=== PATIENT | male | born 1940 | race Caucasian/White ===

== ENCOUNTER 2016-03-26 14:15 | Inpatient (IN) | payer OTHER ==
[~2016-03-26] VITALS: Ht 177.8 cm; Wt 79.4 kg
[~2016-03-26 14:15] MED LIST: ALBUTEROL SULFAT3 M1 NEB; ASPIRIN CHILDRE81 MG PO; AZITHROMYCIN250 MG PO; CARDIZEM120 MG; FOLIC ACID 1 MG PO; IMODIUM 2 MG. CA2 MG PO; KLOR-CON 10MEQ10 MEQ; LASIX20 MG; LOPRESSOR 25MG25 MG PO; MAGNESIUM OXID400 MG PO; MAGNESIUM SULFATE; MASON NATURAL1000 IU PO; MULTIVITAMIN1 TAB PO; PREDNISONE 10MG10 M1 PO; PREDNISONE10 MG; PREDNISONE10 MG PO; PRINIVIL10 MG; PROVENTIL0.09 MG/A1 INH; SPIRIVA 18 MCG18 MCG INH; SYMBICORT 160/41 PUF INH; VITAMIN B1100 MG PO; XARELTO10 MG; ZOLOFT 100 MG100 MG PO
--- NOTE | 2016-03-26 14:26 | NUR ---
PT TO ED FOR WORSENING SOB OVER PAST 2 DAYS, DENIES FEVER, NVD, CP. REPORTS CHRONIC COUGH R/T COPD, NON PRODUCTIVE.
--- NOTE | 2016-03-26 14:26 | NUR ---
ROCHELLE TO BEDSIDE TO EVAL
--- NOTE | 2016-03-26 14:30 | ED DYSPNEA/ASTHMA COMPLAINT ---
History of Present Illness General Chief Complaint: General Adult Stated Complaint: SOB/GENERAL WEAKNESS Source: patient Exam Limitations: no limitations Vital Signs & Intake/Output Vital Signs & Intake/Output ED Intake and Output 04/01 0000 03/31 1200 Intake Total 840 120 Output Total 900 Balance 840 -780 Intake, Oral 840 120 Output, Urine 900 Allergies Coded Allergies: NO KNOWN ALLERGIES (04/07/15) Triage Note: PT TO ED FOR WORSENING SOB OVER PAST 2 DAYS, DENIES FEVER, NVD, CP. REPORTS CHRONIC COUGH R/T COPD, NON PRODUCTIVE. Triage Nurses Notes Reviewed? yes Onset: Gradual Duration: day(s): (2) Timing: recent history Severity: moderate Activities at Onset: none Prior Episodes/Possible Cause: occasional episodes Modifying Factors: Improves With: immobilization. HPI: Patient is a 75-year-old male with history of COPD presenting to the emergency Department chief complaint of increased shortness of breath 2 days. Symptoms worsen with exertion but he reports that he should've breath. Stationery as well. Denies any fevers or chills. No productive cough. Denies any nausea or vomiting or chest pain. No palpitations. Has been using his at-home inhalers as well as no relief. (DELVIN MYRICK,AMARILYS) Reconcile Medications Albuterol Sulfate (Proair Hfa) 90 MCG HFA.AER.AD 2 PUF INH Q4-6 PRN PRN COPD (Reported) Albuterol Sulfate 2.5 MG/3 ML (0.083 %) VIAL.NEB 1 Vial INH/KARTHIKEYAN PRN COPD ( Reported) Aspirin (Ecotrin*) 81 MG TABLET.DR 1 TAB PO DAILY HEART/BLOOD (Reported) Folic Acid 1 MG TABLET 1 MG PO DAILY supplement Multivitamin (One Daily Multivitamin) 1 EACH TABLET 1 TAB PO DAILY supplement Thiamine HCl (Vitamin B-1) 100 MG TABLET 100 MG PO DAILY supplement Tiotropium [place] (Spiriva) 18 MCG CAP.W.DEV 1 CAP INH DAILY COPD (Reported) (TERI AU,PILAR Zapata) Past History Travel History Traveled to [place] past 21 day No Medical History Any Pertinent Medical History? see below for history Neurological: NONE EENT: NONE Cardiovascular: AFIB, hypertension Respiratory: COPD, obstructive sleep apnea, TUBERCULOSIS WITH LUNG RESECTION Gastrointestinal: NONE Hepatic: NONE Renal: NONE Musculoskeletal: fracture, right hip fracture 10 years ago Psychiatric: anxiety, depression Endocrine: NONE Blood Disorders: NONE Cancer(s): NONE SURFACE GRINDER/Reproductive: NONE History of MRSA: No History of VRE: No History of CDIFF: No Pneumonia Vaccine: 12/27/14 Influenza Vaccine: 11/17/14 Surgical History Surgical History: RIGHT HIP, LOBECTOMY Psychosocial History Who do you live with Patient/Self Services at Home Oxygen What is your primary language Frisian Tobacco Use: Never used ETOH Use: occasional use Illicit Drug Use: denies illicit drug use Family History Family History, If Any: Relation not specified for: FH: myocardial infarction Hx Contributory? No (AMARILYS PERKINS) Review of Systems Review of Systems Constitutional: Reports: no symptoms. Comments Review of systems: See HPI, All other systems negative. Constitutional, no chills fever or weight loss HEENT: No visual changes no sore throat no congestion Cardiovascular: No chest pain ,palpitation , orthopnea or ankle swelling Skin, no jaundice no rashes Respiratory: No sputum or hemoptysis GI: No nausea no vomiting : No dysuria No hematuria Muscle skeletal: no back pain, no neck pain, Neurologic: No numbness no confusion Psych: No stress anxiety or depression,. Heme/endocrine: No bruising no bleeding no polyuria or polydipsia Immunology: No splenectomy or history of AIDS (AMARILYS PERKINS) Physical Exam Physical Exam General Appearance: well developed/nourished, alert, awake, mild distress Respiratory: wheezing Comments: Well-developed well-nourished person in mild resp distress HEENT: Pupils equally round and reactive to light and accommodation. Nose is atraumatic. External auditory canal and Tympanic membranes clear. Pharynx normal. No swelling or edema. Neck: Supple, no lymphadenopathy, normal range of motion without pain or tenderness Back: Nontender Cardiovascular: Regular rate and rhythms no murmurs rubs or gallops, normal JVP Respiratory: Chest nontender. No respiratory distress.breath sounds diminished to auscultation bilaterally Abdomen: Soft, nontender nondistended, no appreciable organomegaly. Normal bowel sounds. No ascites Extremity: No edema, no calf tenderness to palpation, normal and equal pulses. Neuro: Alert oriented x3 Skin: No appreciable rash on exposed skin, skin is warm and dry. Psych: Mood and affect is normal, memory and judgment is normal. Core Measures ACS in differential dx? Yes Severe Sepsis Present: No Septic Shock Present: No (DELVIN MYRICK,AMARILYS) Progress Differential Diagnosis: asthma, AMI, bronchitis, costochondritis, CHF, COPD, pulmonary embolism, pneumonia, pneumonia, bronchitis, COPD exacerbation, ACS, dehydration, viral syndrome Plan of Care: Orders Procedure Date/time Status HEPATIC FUNCTION PANEL 03/29 06 Active CBC WITHOUT DIFFERENTIAL 03/29 06 Active BASIC ELECTROLYTES PLUS BUN&CR 03/29 06 Active HEPATIC FUNCTION PANEL 03/28 075 Complete CBC WITHOUT DIFFERENTIAL 03/28 075 Complete BASIC ELECTROLYTES PLUS BUN&CR 03/28 075 Complete PHYSICIAN CONSULT 03/28 0743 Active Nursing Misc 03/28 UNK Active OXYGEN SETUP CHG 03/27 UNK Complete OXYGEN 03/27 UNK Complete OXYGEN TRANSPORT 03/27 UNK Complete Current Medications Sig/Ade Start time Last Medication Dose Stop Time Status Admin Prednisone 40 MG DAILY 03/29 1000 AC Heparin Sodium 5,000 UNIT Q8 03/27 1400 AC (Porcine) Albuterol Sulfate 3 ML Q4-6 PRN PRN 03/26 2300 AC (Proventil) Laboratory Tests 03/28/16 0915: Anion Gap 17 H, Estimated GFR 59 L, BUN/Creatinine Ratio 27.5 H, Total Bilirubin 0.9, Direct Bilirubin 0.5 H, AST 34, ALT 46, Alkaline Phosphatase 100 , Total Protein 7.9, Albumin 4.3, CBC w Diff NO MAN DIFF REQ, RBC 4.13 L, MCV 98.2 H, MCH 32.8 H, RDW 15.6 H, MPV 7.6, Gran % 89.1 H, Lymphocytes % 6.6 L , Monocytes % 4.2, Eosinophils % 0.1, Basophils % 0 L, Absolute Granulocytes 14.7 H, Absolute Lymphocytes 1.1 L, Absolute Monocytes 0.7 H, Absolute Eosinophils 0, Absolute Basophils 0, PUBS MCHC 33.4 Diagnostic Imaging: Viewed by Me: Radiology Read. Discussed w/RAD: Radiology Read. Radiology Impression: PATIENT: YUVAL MANSFIELD PRESENT AGE: 75 PATIENT ACCOUNT NO: [id number] : 42 LOCATION: [facility] ORDERING PHYSICIAN: AMARILYS MYRICK SERVICE DATE: 03/26/16 EXAM TYPE: RAD - XRY-CHEST XRAY, PA AND LATERAL EXAMINATION: XR CHEST CLINICAL INFORMATION: Shortness of breath. COMPARISON: Chest x-ray 04/07/2015. CTA of the chest 03/02/2015. Chest x-ray 05/18/2014 TECHNIQUE: 2 views of the chest were obtained. FINDINGS: Stable chronic changes. Pleural thickening and pleural calcifications at the left lateral lower hemithorax with blunting of the left costophrenic angle and volume loss left hemithorax. Surgical clips over the left superior hilum. There is parenchymal scarring at the right lung apex. Pleural calcifications in the right lateral mid hemithorax. No acute abnormality. No pulmonary vascular congestion. No infiltrate or pleural effusion. The heart size is normal. The cardiac and mediastinal contours are normal. IMPRESSION: No acute abnormality of the chest. Stable chronic changes., PATIENT: YUVAL MANSFIELD PRESENT AGE: 75 PATIENT ACCOUNT NO: [id number] : LOCATION: [facility] ORDERING PHYSICIAN: AMARILYS MYRICK SERVICE DATE: 03/26/16 EXAM TYPE: US - US-LIMITED ABDOMEN EXAMINATION: US ABDOMEN LIMITED CLINICAL INFORMATION: Elevated bilirubin. Elevated liver function tests. COMPARISON: CTA of the chest 03/02/2015 TECHNIQUE: Real-time imaging of the right upper quadrant abdominal viscera. Color Doppler exam utilized. FINDINGS: PANCREAS: Not seen well due to bowel gas. LIVER: The liver is partially obscured in the left lobe due to bowel gas. No liver lesion seen in the visualized portions of liver. No intrahepatic bile duct dilatation. Right lobe liver measures 17.7 cm superior inferior. GALLBLADDER: There is a gallstone in the gallbladder measuring just over a centimeter in size in the neck of the gallbladder. No edema of the gallbladder. No gallbladder wall thickening or pericholecystic fluid. Negative ultrasound Hutchins's sign. COMMON BILE DUCT: Extrahepatic bile duct is dilated to a diameter of 1.7 cm. No stone identified within the duct. RIGHT KIDNEY: Normal. No hydronephrosis. No renal calculi or focal parenchymal lesions. The kidney measures 10.7 cm in maximum dimension. FREE FLUID: None. IMPRESSION: 1. Cholelithiasis. No acute change of the gallbladder wall. 2. Dilated CBD to a diameter of 1.7 cm without calcified stone within the visualized portions of the duct. MRCP could be helpful for further assessment., PATIENT: YUVAL MANSFIELD PRESENT AGE: 75 PATIENT ACCOUNT NO: [id number] : 42 LOCATION: [facility] ORDERING PHYSICIAN: AMARILYS MYRICK SERVICE DATE: 03/26/16 EXAM TYPE: CAT - CTA CHEST- PULMONARY EMBOLISM EXAMINATION: CT ANGIOGRAM OF THE CHEST WITH AND WITHOUT CONTRAST (CT PULMONARY ANGIOGRAM FOR PE) CLINICAL INFORMATION: Shortness of breath. Tachycardia. COMPARISON: CTA chest 03/02/2015. TECHNIQUE: Prior to contrast administration, noncontrast localization images were obtained. Subsequently, multidetector volumetric imaging was performed from the thoracic inlet to below the diaphragms following the administration 101 mL Optiray 350 intravenous contrast. No contrast reaction reported. Sagittal, coronal, and MIP oblique sagittal reformatted images were obtained on the CT workstation, uploaded to PACS, and reviewed. Total exam dose-length product 536 mGy-cm FINDINGS: QUALITY OF STUDY/CONTRAST BOLUS: Adequate contrast opacification of the pulmonary arterial vasculature. PULMONARY ARTERIES: No evidence of pulmonary embolism to the level of the subsegmental pulmonary arteries. No large central pulmonary emboli. The main pulmonary artery is normal in caliber. Normal caliber of the thoracic aorta THORACIC AORTA: Normal caliber of the thoracic aorta, without aneurysmal dilatation. No centrally displaced intraluminal flaps to suggest aortic dissection. LUNG: Evaluation of the lung parenchyma is again notable for architectural distortion within the right upper lobe with associated scarring and fibrosis and traction bronchiectasis. There is also unchanged architectural distortion within the left upper lobe with associated elevation of the left fissure. There are postsurgical changes within the left upper lobe, related to prior surgery. No new airspace consolidation is identified. There are mild bilateral centrilobular emphysematous changes. Redemonstrated is a 5 mm pulmonary nodule within the lingula, not significantly changed in size relative to the prior examination. No new or enlarging pulmonary nodules are identified. Incidental note is made of a calcified granuloma within the right lower lobe ( series 3, image 29). The central airways are patent, without endobronchial obstructing lesions. PLEURA: No pleural effusions or pneumothoraces. 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 MEDIASTINUM: Normal heart size, without significant pericardial effusion. Normal three-vessel branching of the aortic arch. Scattered atherosclerosis of the thoracic aorta. Scattered coronary artery calcifications. No significant mediastinal or hilar adenopathy. Previously noted subcentimeter subcarinal lymph nodes do not appear significantly changed. No evidence of septal bowing or right heart strain. CHEST WALL/AXILLA: Evaluation of the chest wall is again notable for subcutaneous nodules along the right and left anterior chest price, visualized measuring up to 1.6 cm along the right anterior chest wall. The subcutaneous nodules do not appear significantly changed relative to the most recent exam. There is no significant axillary adenopathy. OSSEOUS STRUCTURES: No acute osseous abnormality. Moderate multilevel degenerative changes of the imaged thoracic spine. No acute thoracic vertebral compression deformities. No subluxation. UPPER ABDOMEN: No acute findings within the abdomen. Redemonstrated is cholelithiasis. No visible secondary signs of acute cholecystitis. There is a stable nodule within the right adrenal gland measuring approximately 1.4 cm 5 Hounsfield units. This is favored to represent a small right adrenal gland adenoma. No reflux of contrast into the hepatic veins to suggest elevated right heart pressures. IMPRESSION: 1. Adequate contrast opacification of the pulmonary arterial vasculature, without evidence of pulmonary embolism. 2. Unchanged architectural distortion within the bilateral upper lobes, notably within the right lung apex. 3. 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 4. Stable 5 mm pulmonary nodule within the lingula. This finding is entirely nonspecific. Recommend follow-up chest CT in one year to establish two-year stability, per Fleischner Society guidelines, as detailed below. Various management parameters for solitary pulmonary nodules are in the literature. According to the Fleischner Society, recommendations for pulmonary nodules are as follows: Nodule size > 4-6 mm in LOW RISK PATIENTS: Follow up CT at 12 months; if unchanged, no further follow up. Nodule size > 4-6 mm in HIGH RISK PATIENTS: Initial follow up CT at 6-12 months, then at 18-24 months if no change. VTE: Negative. DICTATED BY: RIO GOODWIN MD DATE/TIME DICTATED:1841 SPLITTER MACHINE:TE DATE/TIME TRANSCRIBED:03/26/161841 CONFIDENTIAL, DO NOT COPY WITHOUT APPROPRIATE AUTHORIZATION. <Electronically signed in Other Vendor System> SIGNED BY: RIO GOODWIN MD 03/26/16 1900 Initial ED EKG: sinus tachycardia at 102 bpm Comments: 03/26/2016 6:45:12 PM on reevaluation patient still denying any abdominal pain but does have tenderness to palpation in the right upper quadrant with mild guarding. Page put out to gastroenterology. Patient will be seen by Dr. wallace in the emergency department for elevated liver function tests and bilirubin. questionable dilation of the common bile duct. Patient will be admitted for COPD exacerbation. Ambulatory with oxygen patient still gets to Neck and his heart rate goes up to 110. Patient will need serial DuoNeb treatments, IV steroids. Pulmonology consultation. Unsafe for discharge at this time. (AMARILYS PERKINS) Departure Departure Time of Disposition: 1938 Disposition: STILL A PATIENT Condition: Stable Clinical Impression Primary Impression: COPD exacerbation Referrals: DENVER AU,MARCELL Maynard Departure Forms: Customer Survey General Discharge Information Admission Note Spoke With: LM AU,ELISHA Documentation of Exam: Documentation of any treatments & extenuating circumstances including Concerns Regarding Discharge (functional status, medication knowledge or non-compliance, living conditions, etc.) that warrant an admission rather than observation: Patient requiring serial DuoNeb treatments, requiring more oxygen than baseline, IV steroids, pulmonology consultation. Discharged at this time and be medically harmful. Patient will obtain GI consultation while admitted, may require MRCP . (AMARILYS PERKINS) Departure Prescriptions: Current Visit Scripts Folic Acid 1 MG PO DAILY 30 Days Multivitamin (One Daily Multivitamin) 1 TAB PO DAILY 30 Days Thiamine HCl (Vitamin B-1) 100 MG PO DAILY 30 Days PA/STEEL CUTTER Co-Sign Statement Statement: ED Attending supervision documentation- [X] I saw and evaluated the patient. I have also reviewed all the pertinent lab results and diagnostic results. I agree with the findings and the plan of care as documented in the PA's/STEEL CUTTER's documentation. [X] I have reviewed the ED Record and agree with the PA's/STEEL CUTTER's documentation. [] Additions or exceptions (if any) to the PAs/STEEL CUTTER's note and plan are summarized below: [] (TERI AU,PILAR Zapata) Critical Care Note Critical Care Note Critical Care Time: non-applicable (AMARILYS PERKINS)
--- NOTE | 2016-03-26 15:14 | RADIOLOGY REPORT ---
EXAMINATION: XR CHEST CLINICAL INFORMATION: Shortness of breath. COMPARISON: Chest x-ray 04/07/2015. CTA of the chest 03/02/2015. Chest x-ray 05/18/2014 TECHNIQUE: 2 views of the chest were obtained. FINDINGS: Stable chronic changes. Pleural thickening and pleural calcifications at the left lateral lower hemithorax with blunting of the left costophrenic angle and volume loss left hemithorax. Surgical clips over the left superior hilum. There is parenchymal scarring at the right lung apex. Pleural calcifications in the right lateral mid hemithorax. No acute abnormality. No pulmonary vascular congestion. No infiltrate or pleural effusion. The heart size is normal. The cardiac and mediastinal contours are normal. IMPRESSION: No acute abnormality of the chest. Stable chronic changes.
--- NOTE | 2016-03-26 15:28 | NUR ---
CATERINA DRAWN AND SENT TO LAB
[2016-03-26] MEDS ORDERED: ASPIRIN EC81 M1 PO (15:35)
--- NOTE | 2016-03-26 15:35 | NUR ---
IV EST. PT MEDICATED WITH 125MG IV SOLUMEDROL PER ORDER AT THIS TIME
[2016-03-26] MEDS ORDERED: SPIRIVA18 MCG INH (15:36)
[2016-03-26] MEDS ORDERED: PROAIR HFA8.5 GM INH (15:36)
[2016-03-26 15:37] LABS: ABSOLUTE BASOPHIL COUNT 0.1 /CUMM (0.0-0.2); ABSOLUTE EOSINOPHIL COUNT 0.1 /CUMM (0.0-0.7); ABSOLUTE GRANULOCYTE CT 8.8 /CUMM (1.4-6.5); ABSOLUTE LYMPH COUNT 1.3 /CUMM (1.2-3.4); ABSOLUTE MONOCYTE COUNT 1.4 /CUMM (0.10-0.60); BASOPHIL % 0.8 % (0.0-2.0); EOSINOPHIL % 0.4 % (0-5); GRANULOCYTE % 76.1 % (42.2-75.2); HEMATOCRIT 41.1 % (42-52); MEAN CORPUSCULAR HGB 33.2 PG (27.0-31.0); MEAN CORPUSCULAR HGB CONC 33.9 G/DL (33.0-37.0); MEAN CORPUSCULAR VOLUME 97.8 FL (80.0-94.0); MEAN PLATELET VOLUME 6.5 FL (7.4-10.4); PLATELET COUNT 400 /CUMM (130-400); RBC DISTRIBUTION WIDTH 15.4 % (11.5-14.5); WHITE BLOOD CELL COUNT 11.6 /CUMM (4.8-10.8)
[2016-03-26] MEDS ORDERED: ALBUTEROL2.5 MG/3 M INH/SOL (15:37)
[2016-03-26] MEDS ORDERED: BP PO (15:40)
--- NOTE | 2016-03-26 17:09 | NUR ---
IV MAGENSIUM 1 GRAM INFUSING PER ORDER AT THIS TIME.
--- NOTE | 2016-03-26 17:37 | NUR ---
PT TO US AT THIS TIME VIA STRETCHER
--- NOTE | 2016-03-26 18:13 | NUR ---
PT BACK ROM US
--- NOTE | 2016-03-26 18:26 | ULTRASOUND REPORT ---
EXAMINATION: US ABDOMEN LIMITED CLINICAL INFORMATION: Elevated bilirubin. Elevated liver function tests. COMPARISON: CTA of the chest 03/02/2015 TECHNIQUE: Real-time imaging of the right upper quadrant abdominal viscera. Color Doppler exam utilized. FINDINGS: PANCREAS: Not seen well due to bowel gas. LIVER: The liver is partially obscured in the left lobe due to bowel gas. No liver lesion seen in the visualized portions of liver. No intrahepatic bile duct dilatation. Right lobe liver measures 17.7 cm superior inferior. GALLBLADDER: There is a gallstone in the gallbladder measuring just over a centimeter in size in the neck of the gallbladder. No edema of the gallbladder. No gallbladder wall thickening or pericholecystic fluid. Negative ultrasound Hutchins's sign. COMMON BILE DUCT: Extrahepatic bile duct is dilated to a diameter of 1.7 cm. No stone identified within the duct. RIGHT KIDNEY: Normal. No hydronephrosis. No renal calculi or focal parenchymal lesions. The kidney measures 10.7 cm in maximum dimension. FREE FLUID: None. IMPRESSION: 1. Cholelithiasis. No acute change of the gallbladder wall. 2. Dilated CBD to a diameter of 1.7 cm without calcified stone within the visualized portions of the duct. MRCP could be helpful for further assessment.
--- NOTE | 2016-03-26 18:28 | NUR ---
PT TO CT SCAN AT THIS TIME VIA STRETCHER
--- NOTE | 2016-03-26 18:59 | NUR ---
RESP PAGED FOR TREATMENT AT THIS TIME.
--- NOTE | 2016-03-26 19:00 | CT SCAN REPORT ---
EXAMINATION: CT ANGIOGRAM OF THE CHEST WITH AND WITHOUT CONTRAST (CT PULMONARY ANGIOGRAM FOR PE) CLINICAL INFORMATION: Shortness of breath. Tachycardia. COMPARISON: CTA chest 03/02/2015. TECHNIQUE: Prior to contrast administration, noncontrast localization images were obtained. Subsequently, multidetector volumetric imaging was performed from the thoracic inlet to below the diaphragms following the administration 101 mL Optiray 350 intravenous contrast. No contrast reaction reported. Sagittal, coronal, and MIP oblique sagittal reformatted images were obtained on the CT workstation, uploaded to PACS, and reviewed. Total exam dose-length product 536 mGy-cm FINDINGS: QUALITY OF STUDY/CONTRAST BOLUS: Adequate contrast opacification of the pulmonary arterial vasculature. PULMONARY ARTERIES: No evidence of pulmonary embolism to the level of the subsegmental pulmonary arteries. No large central pulmonary emboli. The main pulmonary artery is normal in caliber. Normal caliber of the thoracic aorta THORACIC AORTA: Normal caliber of the thoracic aorta, without aneurysmal dilatation. No centrally displaced intraluminal flaps to suggest aortic dissection. LUNG: Evaluation of the lung parenchyma is again notable for architectural distortion within the right upper lobe with associated scarring and fibrosis and traction bronchiectasis. There is also unchanged architectural distortion within the left upper lobe with associated elevation of the left fissure. There are postsurgical changes within the left upper lobe, related to prior surgery. No new airspace consolidation is identified. There are mild bilateral centrilobular emphysematous changes. Redemonstrated is a 5 mm pulmonary nodule within the lingula, not significantly changed in size relative to the prior examination. No new or enlarging pulmonary nodules are identified. Incidental note is made of a calcified granuloma within the right lower lobe (series 3, image 29). The central airways are patent, without endobronchial obstructing lesions. PLEURA: No pleural effusions or pneumothoraces. 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 MEDIASTINUM: Normal heart size, without significant pericardial effusion. Normal three-vessel branching of the aortic arch. Scattered atherosclerosis of the thoracic aorta. Scattered coronary artery calcifications. No significant mediastinal or hilar adenopathy. Previously noted subcentimeter subcarinal lymph nodes do not appear significantly changed. No evidence of septal bowing or right heart strain. CHEST WALL/AXILLA: Evaluation of the chest wall is again notable for subcutaneous nodules along the right and left anterior chest price, visualized measuring up to 1.6 cm along the right anterior chest wall. The subcutaneous nodules do not appear significantly changed relative to the most recent exam. There is no significant axillary adenopathy. OSSEOUS STRUCTURES: No acute osseous abnormality. Moderate multilevel degenerative changes of the imaged thoracic spine. No acute thoracic vertebral compression deformities. No subluxation. UPPER ABDOMEN: No acute findings within the abdomen. Redemonstrated is cholelithiasis. No visible secondary signs of acute cholecystitis. There is a stable nodule within the right adrenal gland measuring approximately 1.4 cm 5 Hounsfield units. This is favored to represent a small right adrenal gland adenoma. No reflux of contrast into the hepatic veins to suggest elevated right heart pressures. IMPRESSION: 1. Adequate contrast opacification of the pulmonary arterial vasculature, without evidence of pulmonary embolism. 2. Unchanged architectural distortion within the bilateral upper lobes, notably within the right lung apex. 3. 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 4. Stable 5 mm pulmonary nodule within the lingula. This finding is entirely nonspecific. Recommend follow-up chest CT in one year to establish two-year stability, per Fleischner Society guidelines, as detailed below. Various management parameters for solitary pulmonary nodules are in the literature. According to the Fleischner Society, recommendations for pulmonary nodules are as follows: Nodule size > 4-6 mm in LOW RISK PATIENTS: Follow up CT at 12 months; if unchanged, no further follow up. Nodule size > 4-6 mm in HIGH RISK PATIENTS: Initial follow up CT at 6-12 months, then at 18-24 months if no change. VTE: Negative.
--- NOTE | 2016-03-26 19:07 | NUR ---
RESPIRATORY AT BEDSIDE
--- NOTE | 2016-03-26 19:24 | NUR ---
first set of bc drawn and sent to lab
--- NOTE | 2016-03-26 19:40 | NUR ---
PT AMBULATED BY THIS RN AND BRENT VELÁZQUEZ. PT O2 SAT DOWN TO 89% AND HR INCREASED TO 110. RAMEZ HARGROVE MADE AWARE
--- NOTE | 2016-03-26 19:46 | NUR ---
PT MEDICATED WITH UNASYN INFUSING AT 200MLS/HR PER EMAR
--- NOTE | 2016-03-26 19:47 | Cons- Gastroenterology ---
General Information and HPI Consulting Request Date of Consult: 03/26/16 Requested By: LM AU,ELISHA Reason for Consult: Called by the ER on behalf of the hospitalist service about 1 hour ago, to assess incidentally found cholelithiasis (previously present) and dilated CBD noted on imaging studies obtained purely for a flare of COPD. Source of Information: patient, old records Exam Limitations: poor historian, majority of records at [facility] & [facility] History of Present Illness: 75 y/o male, poor historian, with majority of records at [facility]. He is followed for primary care by Jai Cortez APRN, at the [facility]. The patient is an ex-30-pk yr cigarette smoker, stopping in 1989, with COPD (has home O2, but does not use it regularly), remotely on Prednisone, with past history of leukocytosis related to this. He also admits to moderate EtOH, approximately 1 pint vodka/ week. He claims he has not had alcohol for over 1 month. He has a history of PAF (not on A/C therapy), HTN/non-DM, with RUL resection for TB at [facility] > 10 years ago, and ORIF right hip fracture at the [facility] > 10 years ago. He also has Vit D deficiency, anxiety & depression, and was last admitted to [facility] 04/07/15 - 04/12/15 for a flare of COPD, treated with IV Solu-Medrol, Symbicort, Spiriva, and Albuterol, with oxygen as needed. 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 The patient presented to the [place] [facility] 03/26/2016 at 2:15 PM, complaining of shortness of breath, wheezing, and cough productive of greenish sputum, without any pleuritic pain or chest pain. He claimed he was brought here because "there were no beds at the [facility]." There was no hemoptysis. He denied any fevers, chills, or symptoms of UTI. He felt weak and rundown. He was borderline tachycardic with borderline HTN and afebrile with O2 sat 2L nc- 100% upon presentation. Patient was treated with Albuterol, Atrovent, Solu-Medrol 125 mg IV, Mg, O2 & Unasyn 3g IVPB, as per the ER. Although the patient is not aware of this, he does have a history of cholelithiasis, incidentally found on 2015: CTA of chest. The patient has intermittent elevated LFTs, which date back several years. He denies any GI symptoms whatsoever, and currently denies any abdominal pain, nausea, vomiting, hematemesis, odynophagia, dysphagia, early satiety, melena, diarrhea, constipation, obstipation, tenesmus, or rectal bleeding. He denies any jaundice, dark urine, light stools, pruritus, weight loss, change in appetite, or confusion. He denies any history of hepatitis, blood transfusions, IVDA, illicit drugs, tattoos, body piercings, or needle sticks, although he has been on benzodiazepines in the past. He claims he had C. difficile treated x 2, last about 5 years ago. He claims a colonoscopy at the [facility] 6 years ago was "normal" He denies any history of DTs, seizures, or withdrawal. He denies any new outpatient medications. He cannot give a complete list of his medications, but claims he is on "a blood pressure pill, Albuterol, Spiriva, & ECASA 81 mg daily." He is not on any NSAIDs or significant amounts of Tylenol. There is no family history of GI malignancy, GI disease, or inherited liver disease. *Liver function tests were mildly abnormal on admission (which is chronic), and imaging studies obtained for his pulmonary symptoms and his mildly chronically elevated asymptomatic LFTs, incidentally showed cholelithiasis with dilated CBD, prompting the GI consult. He had borderline leukocytosis on admission, which is actually stable compared to his previous labs. He tolerated solid food uneventfully in the ER. 03/26/2016: Admission labs- WBC 11.6 (76% gran/9 gran Ab), H/H 13.9/41.1, MCV 97.8, RDW 15.4, PLT 400, glucose 104, BUN/Cr 12/0.8, GFR > 60, Na 140, K 3.7, HCO3 25, AG 14, *Mg 1.1, Ca 9.3, albumin 4.1, globulin 2.6, TBil 2.0 (initially without fracs), DBil 0.9, alk phos 167, AST 71, ALT 64, troponin < .01, elevated D-dimer 623. 03/26/2016: EKG- ST @ 102, nl axis, borderline prolonged QT interval, unifocal PVCs, no acute ischemic changes. 03/26/2016: XRY-CHEST XRAY, PA AND LATERAL- No acute abnormality of the chest. Stable chronic changes. 03/26/2016: US ABDOMEN LIMITED (RUQ)- 1. Cholelithiasis with 1 cm stone in GB neck. No acute change of the gallbladder wall. Negative ultrasonic Hutchins sign. 2. Dilated CBD to a diameter of 1.7 cm without calcified stone within the visualized portions of the duct. Normal IHD. MRCP could be helpful for further assessment. 3. No liver lesion. No elodia-hepatic ascites. 03/26/2016: CT ANGIOGRAM OF THE CHEST WITH AND WITHOUT CONTRAST (CT PULMONARY ANGIOGRAM FOR PE)- 1. Adequate contrast opacification of the pulmonary arterial vasculature, without evidence of pulmonary embolism. 2. Unchanged architectural distortion within the bilateral upper lobes, notably within the right lung apex. 3. 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 4. Stable 5 mm pulmonary nodule within the lingula. This finding is entirely nonspecific. Recommend follow-up chest CT in one year to establish two-year stability, per Fleischner Society guidelines, as detailed below. Allergies/Medications Allergies: Coded Allergies: NO KNOWN ALLERGIES (04/07/15) Home Med List: Albuterol Sulfate (Proair Hfa) 90 MCG HFA.AER.AD 2 PUF INH Q4-6 PRN PRN COPD (Reported) Albuterol Sulfate 2.5 MG/3 ML (0.083 %) VIAL.NEB 1 Vial INH/KARTHIKEYAN PRN COPD ( Reported) Aspirin (Ecotrin*) 81 MG TABLET.DR 1 TAB PO DAILY HEART/BLOOD (Reported) [BP] (Unknown Strength) (Unknown Dose) PO DAILY BP (Reported) Tiotropium [place] (Spiriva) 18 MCG CAP.W.DEV 1 CAP INH DAILY COPD (Reported) Current Medications: Current Medications Sig/Ade Start time Last Medication Dose Route Stop Time Status Admin Albuterol Sulfate 3 ML ONCE ONE 03/26 1845 DC 03/26 INH 03/26 1846 1904 Albuterol Sulfate 3 ML ONCE ONE 03/26 1430 DC 03/26 INH 03/26 1431 1500 Ampicillin Sodium/ 0 .STK-MED ONE 03/26 1944 DC Sulbactam Sodium .ROUTE Ampicillin Sodium/ 3,000 MG ONCE ONE 03/26 1900 DC / Sulbactam Sodium IV 03/26 1929 1945 Sodium Chloride 100 ML Ipratropium [place] 2.5 ML ONCE ONE 03/26 1430 DC 02/ INH 03/26 1431 1500 Magnesium Sulfate 1 GM ONCE ONE 03/26 1615 DC 03/26 Dextrose/Water 100 ML IV 03/26 2013 1709 Methylprednisolone 0 .STK-MED ONE 03/26 1507 DC .ROUTE Methylprednisolone 125 MG ONCE ONE 03/26 1430 DC / IV 03/26 1431 1529 Sodium Chloride 1,000 ML ONCE ONE 03/26 1715 AC 03/26 IV 03/26 2354 1807 Past History Travel History Traveled to [place] past 21 day No Medical History Blood Transfusion Hx: No Neurological: NONE EENT: hearing loss Cardiovascular: AFIB (PAF, currently NSR, w/o A/C tx), hypertension Respiratory: COPD, obstructive sleep apnea, TUBERCULOSIS WITH RUL LUNG RESECTION- [facility] Gastrointestinal: C.difficile x 2, last 5 yrs ago Hepatic: cholelithiasis (incidental on previous CT) Renal: NONE Musculoskeletal: fracture, right hip fracture 10 years ago- R THR @ [facility] Psychiatric: anxiety, depression, mild to mod EtOH, 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 MOTHER, , Age 93; Cause: Old age. SON, , Age 50-60. Relation not specified for: FH: myocardial infarction Psychosocial History Where Do You Live? Home Who Do You Live With? self Services at Home: Home Health Aide (? compliance), Oxygen Primary Language: Italian Smoking Status: Former Smoker ETOH Use: occasional use Illicit Drug Use: denies illicit drug use Living Will? no Power of Junior Project Coordinator/HCP? no Other Social History: since 2003. Lives alone. Ex-30-pk-yr cigarette smoker, D/C 1989. 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 No drugs or IVDA. [employer] vet [phone]. 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 Retired 2005. Had 2 sons. 1 son- 50, unknown cause. 1 son- 47, [employer]. Functional Ability ADLs Independent: dressing, eating, toileting, bathing. Ambulation: independent IADLs Independent: shopping, housework, finances, food prep, telephone, transportation , medication admin. Employment History Employment: Retired Profession/Employer: [employer], then [employer] Review of Systems Review of Systems: Full 14 point ROS otherwise non-contributory, and as above. Review of Systems Constitutional: Reports: malaise, weakness. Denies: chills, diaphoresis, fever, unexplained weight loss. EENTM: Reports: hearing changes. Denies: blurred vision, double vision, visual changes , eye pain, eye drainage, eye tearing, icterus, ear discharge, ear pain, ear redness, nasal congestion, epistaxis, nasal pain, throat pain, throat swelling, mouth pain, tooth pain. Cardiovascular: Reports: peripheral edema (mild). Denies: chest pain, edema, orthopena, palpitations, syncope. Respiratory: Reports: cough (chronic- greenish sputum), short of breath, sputum production ( greenish), wheezing. Denies: hemoptysis, orthopnea, stridor. GI: Denies: abdominal pain, bloating, constipation, diarrhea, distention, bowel incontinence, melena, nausea, bloody stool, changes in stool, vomiting, steatorrhea. Genitourinary: Denies: discharge, dysuria, frequency, hematuria, hesitation, nocturia, pain, urgency. Musculoskeletal: Reports: joint pain (DJD, ORIF R hip). Denies: back pain, gout, joint swelling, muscle pain, muscle stiffness, neck pain. Skin: Denies: cysts, change in skin color, change in hair/nails, dryness, erythema, jaundice, lesions, lymphangitis, lumps, moles, rash. Neurological/Psychological: Reports: anxiety, depressed, emotional problems, weakness. Denies: ataxia, cognitive dysfunction, confusion, dementia, headache, numbness, paresthesia, pre -existing deficit, petit mal seizures, tingling, tremors, tonic-clonic seizures, unable to move lower ext, unable to move upper ext. Hematologic/Endocrine: Denies: bruising, bleeding, polyuria, polydipsia. Immunologic/Allergic: Denies: splenectomy, HIV/AIDS, lymphadenopathy. All Other Systems: Reviewed and Negative Exam & Diagnostic Data Vital Signs and I&O Vital Signs Date Time Temp Pulse Resp B/P Pulse O2 O2 Flow FiO2 Ox Delivery Rate 03/26 1957 98.1 105 18 173/97 98 Room Air 03/26 1908 98 Nasal 2.0L Cannula 03/26 1710 101 20 168/97 96 Room Air 03/26 1546 102 20 155/98 98 Nasal 2.0L Cannula 03/26 1530 96 Nasal 2.0L Cannula 03/26 1510 96 Nasal 2.0L Cannula 03/26 1426 98.6 100 18 144/78 100 Nasal 2.0L Cannula Intake & Output 03/26 1600 03/26 0400 03/25 1600 03/25 0400 03/24 1600 03/24 0400 Intake Total Output Total Balance Patient 160 lb Weight Physical Exam: Well-developed, chronically ill-appearing male, in no apparent distress. Sclera anicteric. Conjunctiva pink. Oropharynx clear. Poor dentition. No oral thrush. No aphthous ulcers. There is no adenopathy, thyromegaly, or JVD. No peripheral stigmata of inflammatory bowel disease or chronic liver disease on exam. No spiders on the anterior chest wall. No gynecomastia. No CVA tenderness. Lungs: decreased breath sounds at the upper lobes B/L, R > L, with scattered wheezing. Prolonged expiratory phase. No rales or rhonchi. No definite egophony. Heart exam: regular rate rhythm, S1 and S2, with soft I/ systolic murmur & occasional ectopic beat. Old scar right anterior chest wall & mid-back. Abdominal exam: normal bowel sounds, soft belly, mildly distended, nontender, without guarding or rebound. No mass. No definite organomegaly. Liver approximately 15 cm by percussion. No palpable spleen tip. Negative Hutchins sign. No fluid shift. No pulsatile mass. No epigastric bruit. Digital rectal exam: deferred by patient. Extremities: mild cyanosis, no clubbing, trace edema LE B/ L. No palpable cords. No rash. No palmar erythema. No Dupuytren's contractures. Distal pulses 1+ bilaterally. DTRs 2+ bilaterally. Alert and oriented x 3. No tremor. No asterixis. Results Pertinent Lab Results: Laboratory Tests 03/26 1527 Chemistry Sodium (137 - 145 mmol/L) 140 Potassium (3.5 - 5.1 mmol/L) 3.7 Chloride (98 - 107 mmol/L) 102 Carbon Dioxide (22 - 30 mmol/L) 25 Anion Gap (5 - 16) 14 BUN (9 - 20 mg/dL) 12 Creatinine (0.7 - 1.2 mg/dL) 0.8 Estimated GFR (>60 ml/min) > 60 BUN/Creatinine Ratio (7 - 25 %) 15.0 Glucose (65 - 99 mg/dL) 104 H Calcium (8.4 - 10.2 mg/dL) 9.3 Magnesium (1.6 - 2.3 mg/dL) 1.1 L Total Bilirubin (0.2 - 1.3 mg/dL) 2.0 H Direct Bilirubin (< 0.4 mg/dL) 0.9 H AST (17 - 59 U/L) 71 H ALT (21 - 72 U/L) 64 Alkaline Phosphatase (< 127 U/L) 167 H Troponin I (<0.11 ng/ml) < 0.01 Total Protein (6.3 - 8.2 g/dL) 7.7 Albumin (3.5 - 5.0 g/dL) 4.1 Globulin (1.9 - 4.2 gm/dL) 3.6 Albumin/Globulin Ratio (1.1 - 2.2 %) 1.1 Coagulation D-Dimer (70 - 232 ng/ml) 623 H Hematology CBC w Diff NO MAN DIFF REQ WBC (4.8 - 10.8 /CUMM) 11.6 H RBC (4.70 - 6.10 /CUMM) 4.20 L Hgb (14.0 - 18.0 G/DL) 13.9 L Hct (42 - 52 %) 41.1 L MCV (80.0 - 94.0 FL) 97.8 H MCH (27.0 - 31.0 PG) 33.2 H RDW (11.5 - 14.5 %) 15.4 H Plt Count (130 - 400 /CUMM) 400 MPV (7.4 - 10.4 FL) 6.5 L Gran % (42.2 - 75.2 %) 76.1 H Lymphocytes % (20.5 - 51.1 %) 10.8 L Monocytes % (1.7 - 9.3 %) 11.9 H Eosinophils % (0 - 5 %) 0.4 Basophils % (0.0 - 2.0 %) 0.8 Absolute Granulocytes (1.4 - 6.5 /CUMM) 8.8 H Absolute Lymphocytes (1.2 - 3.4 /CUMM) 1.3 Absolute Monocytes (0.10 - 0.60 /CUMM) 1.4 H Absolute Eosinophils (0.0 - 0.7 /CUMM) 0.1 Absolute Basophils (0.0 - 0.2 /CUMM) 0.1 PUBS MCHC (33.0 - 37.0 G/DL) 33.9 Imaging/Other Studies: 03/26/2016: EKG- ST @ 102, nl axis, borderline prolonged QT interval, unifocal PVCs, no acute ischemic changes. 03/26/2016: XRY-CHEST XRAY, PA AND LATERAL- No acute abnormality of the chest. Stable chronic changes. 03/26/2016: US ABDOMEN LIMITED (RUQ)- 1. Cholelithiasis with 1 cm stone in GB neck. No acute change of the gallbladder wall. Negative ultrasonic Hutchins sign. 2. Dilated CBD to a diameter of 1.7 cm without calcified stone within the visualized portions of the duct. Normal IHD. MRCP could be helpful for further assessment. 3. No liver lesion. No elodia-hepatic ascites. 03/26/2016: CT ANGIOGRAM OF THE CHEST WITH AND WITHOUT CONTRAST (CT PULMONARY ANGIOGRAM FOR PE)- 1. Adequate contrast opacification of the pulmonary arterial vasculature, without evidence of pulmonary embolism. 2. Unchanged architectural distortion within the bilateral upper lobes, notably within the right lung apex. 3. 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 4. Stable 5 mm pulmonary nodule within the lingula. This finding is entirely nonspecific. Recommend follow-up chest CT in one year to establish two-year stability, per Fleischner Society guidelines, as detailed below. Assessment/Plan Assessment/Recommendations: 75 y/o male, poor historian, with majority of records at [facility]. He is followed for primary care by Jai Cortez APRN, at the [facility]. The patient is an ex-30-pk yr cigarette smoker, stopping in 1989, with COPD (has home O2, but does not use it regularly), remotely on Prednisone, with past history of leukocytosis related to this. He also admits to moderate EtOH, approximately 1 pint vodka/ week. He claims he has not had alcohol for over 1 month. He has a history of PAF (not on A/C therapy), HTN/non-DM, with RUL resection for TB at [facility] > 10 years ago, and ORIF right hip fracture at the [facility] > 10 years ago. He also has Vit D deficiency, anxiety & depression, and was last admitted to [facility] 04/07/15 - 04/12/15 for a flare of COPD, treated with IV Solu-Medrol, Symbicort, Spiriva, and Albuterol, with oxygen as needed. 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 The patient presented to the [place] [facility] 03/26/2016 at 2:15 PM, complaining of shortness of breath, wheezing, and cough productive of greenish sputum, without any pleuritic pain or chest pain. He claimed he was brought here because "there were no beds at the [facility]." There was no hemoptysis. He denied any fevers, chills, or symptoms of UTI. He felt weak and rundown. He was borderline tachycardic with borderline HTN and afebrile with O2 sat 2L nc- 100% upon presentation. Patient was treated with Albuterol, Atrovent, Solu-Medrol 125 mg IV, Mg, O2 & Unasyn 3g IVPB, as per the ER. Although the patient is not aware of this, he does have a history of cholelithiasis, incidentally found on 2015: CTA of chest. The patient has intermittent elevated LFTs, which date back several years. He denies any GI symptoms whatsoever, and currently denies any abdominal pain, nausea, vomiting, hematemesis, odynophagia, dysphagia, early satiety, melena, diarrhea, constipation, obstipation, tenesmus, or rectal bleeding. He denies any jaundice, dark urine, light stools, pruritus, weight loss, change in appetite, or confusion. He denies any history of hepatitis, blood transfusions, IVDA, illicit drugs, tattoos, body piercings, or needle sticks, although he has been on benzodiazepines in the past. He claims he had C. difficile treated x 2, last about 5 years ago. He claims a colonoscopy at the [facility] 6 years ago was "normal" He denies any history of DTs, seizures, or withdrawal. He denies any new outpatient medications. He cannot give a complete list of his medications, but claims he is on "a blood pressure pill, Albuterol, Spiriva, & ECASA 81 mg daily." He is not on any NSAIDs or significant amounts of Tylenol. There is no family history of GI malignancy, GI disease, or inherited liver disease. *Liver function tests were mildly abnormal on admission (which is chronic), and imaging studies obtained for his pulmonary symptoms and his mildly chronically elevated asymptomatic LFTs, incidentally showed cholelithiasis with dilated CBD, prompting the GI consult. He had borderline leukocytosis on admission, which is actually stable compared to his previous labs. He tolerated solid food uneventfully in the ER. 03/26/2016: Admission labs- WBC 11.6 (76% gran/9 gran Ab), H/H 13.9/41.1, MCV 97.8, RDW 15.4, PLT 400, glucose 104, BUN/Cr 12/0.8, GFR > 60, Na 140, K 3.7, HCO3 25, AG 14, *Mg 1.1, Ca 9.3, albumin 4.1, globulin 2.6, TBil 2.0 (initially without fracs), DBil 0.9, alk phos 167, AST 71, ALT 64, troponin < .01, elevated D-dimer 623. 03/26/2016: EKG- ST @ 102, nl axis, borderline prolonged QT interval, unifocal PVCs, no acute ischemic changes. 03/26/2016: XRY-CHEST XRAY, PA AND LATERAL- No acute abnormality of the chest. Stable chronic changes. 03/26/2016: US ABDOMEN LIMITED (RUQ)- 1. Cholelithiasis with 1 cm stone in GB neck. No acute change of the gallbladder wall. Negative ultrasonic Hutchins sign. 2. Dilated CBD to a diameter of 1.7 cm without calcified stone within the visualized portions of the duct. Normal IHD. MRCP could be helpful for further assessment. 3. No liver lesion. No elodia-hepatic ascites. 03/26/2016: CT ANGIOGRAM OF THE CHEST WITH AND WITHOUT CONTRAST (CT PULMONARY ANGIOGRAM FOR PE)- 1. Adequate contrast opacification of the pulmonary arterial vasculature, without evidence of pulmonary embolism. 2. Unchanged architectural distortion within the bilateral upper lobes, notably within the right lung apex. 3. 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 4. Stable 5 mm pulmonary nodule within the lingula. This finding is entirely nonspecific. Recommend follow-up chest CT in one year to establish two-year stability, per Fleischner Society guidelines, as detailed below. *The cholelithiasis is chronic, as are his mildly elevated LFTs, which have fluctuated in the past. The patient was admitted primarily for a flare of COPD. He has no GI symptoms. The dilated CBD on ultrasound is noted. The patient currently has no signs or symptoms of cholangitis, nor cholecystitis. Has a benign abdominal exam, with a negative Hutchins sign. SUGGEST: NPO after 11:59 p.m. for MRCP on 03/27/2016 (unavailable at [place] on Tuesdays). Serial LFTs. Consider checking Hep A, B, & C serologies, HIV, ANDREAS, AMA, Fe, TIBC, ferritin. No need for antibiotics from a GI perspective (the patient was given Unasyn by the ER to cover his lungs). If MRCP shows choledocholithiasis, or if patient's clinical status changes and he develops signs of cholangitis ( i.e.- hypotension, change in mentation, fever spikes, etc.), call GI [facility] & will have to arrange for ERCP, although the patient was told that this will require intubation, which could be problematic with regards to his COPD. I expect his WBC to rise after IV steroids, prescribed for his COPD. Treatment of COPD, etc. , as per medical team. 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 Further recommendations to follow, depending on clinical course. Problem List: 1. Cholelithiasis 2. Abnormal LFTs 3. Dilated cbd, acquired 4. Alcohol drinker Copies To: JAI CORTEZ APRN; LM AU,[facility] Consult Acknowledgment - Thank you for your consult request.
--- NOTE | 2016-03-26 20:14 | History & Physical ---
LUIS M AU,RAMIRO 03/26/16 2013: General Information and HPI MD Statement: I have seen and personally examined YUVAL MANSFIELD and documented this H&P. The patient is a 75 year old M who presented with a patient stated chief complaint of [shortness of breath]. Source of Information: patient Exam Limitations: no limitations History of Present Illness: Patient is a 75-year-old male who is BIBA after he felt weak and short of breath at home and called 911. Patient reports worsening shortness of breath accompanied by general weakness over the past couple of days. Patient reports that he has COPD at baseline and has shortness of breath on exertion however it has worsened. Reports coughing with little amounts of yellowish phlegm at times , does not report fever or chills. Reports dehydration and weakness due to being unable to go to the kitchen very often to eat and drink as it provokes SOB. Denies any sick contacts. Denies leg swelling, orthopnea, chest pain or palpitation. Patient does not report any abdominal pain, changes in the stool, any urinary symptoms or changes in urine color. Allergies/Medications Allergies: Coded Allergies: NO KNOWN ALLERGIES (04/07/15) Home Med list Albuterol Sulfate (Proair Hfa) 90 MCG HFA.AER.AD 2 PUF INH Q4-6 PRN PRN COPD (Reported) Albuterol Sulfate 2.5 MG/3 ML (0.083 %) VIAL.NEB 1 Vial INH/KARTHIKEYAN PRN COPD ( Reported) Aspirin (Ecotrin*) 81 MG TABLET.DR 1 TAB PO DAILY HEART/BLOOD (Reported) [BP] (Unknown Strength) (Unknown Dose) PO DAILY BP (Reported) Tiotropium [place] (Spiriva) 18 MCG CAP.W.DEV 1 CAP INH DAILY COPD (Reported) Past History Travel History Traveled to [place] past 21 day No Medical History Neurological: NONE EENT: NONE Cardiovascular: AFIB, hypertension Respiratory: COPD, obstructive sleep apnea, 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 Gastrointestinal: NONE Hepatic: NONE Renal: NONE Musculoskeletal: fracture, right hip fracture 10 years ago Psychiatric: anxiety, depression Endocrine: NONE Blood Disorders: NONE Cancer(s): NONE 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 Ambulation: independent IADLs Independent: shopping (but takes long time to do them), housework, finances, food prep, telephone, transportation, medication admin. Review of Systems Review of Systems Constitutional: Reports: malaise, weakness. Denies: chills, fever. EENTM: Denies: blurred vision, nasal congestion, throat pain. Cardiovascular: Denies: chest pain, palpitations, peripheral edema, syncope. Respiratory: Reports: cough, short of breath, sputum production. GI: Denies: abdominal pain, changes in stool. Genitourinary: Reports: no symptoms. Musculoskeletal: Reports: no symptoms. Skin: Reports: no symptoms. Neurological/Psychological: Reports: weakness. Hematologic/Endocrine: Reports: no symptoms. Exam & Diagnostic Data Last 24 Hrs of Vital Signs/I&O Vital Signs Date Time Temp Pulse Resp B/P Pulse O2 O2 Flow FiO2 Ox Delivery Rate 03/26 2258 Nasal 2.0L Cannula 03/26 2221 98.5 97 20 140/82 96 Room Air 03/26 1958 98.1 105 18 173/97 98 Room Air 03/26 1908 98 Nasal 2.0L Cannula 03/26 1710 101 20 168/97 96 Room Air 03/26 1546 102 20 155/98 98 Nasal 2.0L Cannula 03/26 1530 96 Nasal 2.0L Cannula 03/26 1510 96 Nasal 2.0L Cannula 03/26 1426 98.6 100 18 144/78 100 Nasal 2.0L Cannula Intake & Output 03/26 1600 03/26 0800 03/26 0000 Intake Total Output Total Balance Patient 72.575 kg Weight Physical Exam General Appearance Alert, Oriented X3, Cooperative, Mild Distress Skin erythematous plaques with greasy looking yellowish scales on the face more prominent and the nose and chin HEENT Atraumatic, PERRLA, EOMI, Mucous Membr. moist/pink Neck Supple, No JVD Lymphatic No cervical LAP Cardiovascular Normal S1, Normal S2, tachycardic, irregular Lungs decreased breath sounds diffuse and bilateral, no wheezing or rhonchi Abdomen Normal Bowel Sounds, Soft, No Tenderness, Hutchins sign negative Neurological Normal Speech, Strength at 5/5 X4 Ext, Normal Tone, Sensation Intact, Cranial Nerves 3-12 NL Extremities Normal Pulses, No Tenderness/Swelling, mild nonpitting edema on lower extremities bilaterally Vascular Normal Pulses, Pulses Symmetrical Last 24 Hrs of Labs/Figueroa: Laboratory Tests 03/26/16 1527: Anion Gap 14, Estimated GFR > 60, BUN/Creatinine Ratio 15.0, Glucose 104 H, Calcium 9.3, Magnesium 1.1 L, TIBC Pending, Ferritin Pending, Total Bilirubin 2.0 H, Direct Bilirubin 0.9 H, AST 71 H, ALT 64, Alkaline Phosphatase 167 H, Troponin I < 0.01, Total Protein 7.7, Albumin 4.1, Globulin 3.6, Albumin/ Globulin Ratio 1.1, D-Dimer 623 H, CBC w Diff NO MAN DIFF REQ, RBC 4.20 L, MCV 97.8 H, MCH 33.2 H, RDW 15.4 H, MPV 6.5 L, Gran % 76.1 H, Lymphocytes % 10.8 L, Monocytes % 11.9 H, Eosinophils % 0.4, Basophils % 0.8, Absolute Granulocytes 8.8 H, Absolute Lymphocytes 1.3, Absolute Monocytes 1.4 H, Absolute Eosinophils 0.1, Absolute Basophils 0.1, PUBS MCHC 33.9 03/26/16 1429: ANDREAS Titer Pending, Anti-Nuclear Antibody Pending Microbiology 03/26 1924 BLOOD: Blood Culture - RECD Assessment/Plan Assessment: patient is a 75-year-old male with PMH of COPD on 2 L oxygen at home, HTN, Afib not on anti-coagulation, JOANNE, TB infection (s/p right upper lobectomy 30 years ago), who is BIBA to the ED due to acute worsening of shortness of breath for 2 days, coughing, and generalized weakness and dehydration. Patient was last admitted at [facility] in March 2015 for COPD exacerbation and generalized weakness. Patient is admitted to general medicine floor for COPD exacerbation. Problem list and plan: Shortness of breath, likely due to COPD exacerbation Patient is afebrile, but it is tachycardic and has elevated WBC 11.6. CXR is negative for consolidation (for pneumonia). CT is negative for PE. * O2 supplementation as needed * IV Solu-Medrol ordered milligrams every 8h * TRC nebs * Continue Symbicort, Spiriva and Albuterol * No antibiotics needed at this point * Of note, Patient does not have a technical operations manager outpatient, he has a PCP, Dr. Mahoney at the [facility] * CTA showed 5 mm nodule needing follow up in 1 year Generalized weakness Possibly due to hypoxemia and SOB as well as poor oral intake. H&H is a stable. Patient is currently independent in his daily activities however it takes a long time for him to do them. She has no aid at home and lives alone. * O2 supplementation as needed to keep SO2> 88% * IV fluids * Consider Physical therapy Cholelithiasis Patient is asymptomatic, previous examine the ED was positive for right upper quadrant tenderness which is currently negative. Ultrasound of the abdomen confirms cholelithiasis and dilated CBD but no cholecystitis. * Dr. Moreira is consulted, patient will have MRCP done tomorrow * recheck LFTs in AM * checking Hep A, B, & C serologies, HIV, ANDREAS, AMA, Fe, TIBC, ferritin. * no antibiotics needed from GI perspective * If MRCP shows choledocholithiasis or develops signs of cholangitis, call GI [facility] for ERCP (please note that patient will require intubation for this, which could be difficult due to the underlying COPD) Previous history of alcohol abuse Currently reports he does not drink Jackson 2-3 pint of, per week. CIWA scores were 0 during the previous admission in March 2015. * check CIWA scores every shift * with hold off on Ativan as currently patient does not report any symptoms of withdrawal HTN * Patient Does not remember the name of his medication * CMR needs to be confirmed in the morning with the office of Dr. Mahoney (PCP) * will give amlodipine to control BP for now Tylenol for pain NPO DVT px with FC As Ranked By This Provider Problem List: 1. Abnormal LFTs 2. Cholelithiasis 3. Generalized weakness 4. Atrial fibrillation 5. Tachycardia 6. COPD exacerbation Core Measures/Miscellaneous Acute Coronary Syndrome ACS Diagnosis: No Cerebrovascular Accident CVA/TIA Diagnosis: No Congestive Heart Failure CHF Diagnosis: No Venous Thromboembolism VTE Risk Factors: Acute medical illness, Age > 40 VTE Prophylaxis Ordered Inpt: Pharm- Lovenox No Mech VTE prophylaxis d/t: No contraindications No VTE Pharm Prophylaxis d/t: No contraindications VTE Diagnosis: No VTE Type: NONE VTE Confirmed by (Test): NONE Severe Sepsis Severe Sepsis Present: No Septic Shock Septic Shock Present: No Miscellaneous Documentation Attending Case Discussed With: LM AU,CLEVELANDElliot Primary Care Physician: JAI MAHONEY APRN Patient sees these Specialists Patient does not see any specialist, his PCP (Dr. Harden) and all medical records are at the [facility] Level of Patient Care: General Medicine DEMETRICE CHAVEZ 03/26/162026: Resident Review Statement Resident Statement: examined this patient, discussed with manager international, agreed with manager international Other Findings: Patient is 75 year old gentleman with past medical history significant for COPD on 2 L home oxygen as needed, history of tuberculosis status post right upper lobe resection, ex-smoker, history of hypertension and paroxysmal atrial fibrillation not on anticoagulation came to emergency room with worsening pathology, weakness and shortness of breath from couple of days. Patient also has history of significant alcohol abuse and he is taking pint of vodka almost 3 times a week. Patient admits that he is his very weak and fatigued to and was not able to go to the kitchen to make her food and her shortness of breath was also playing a role in it. He came to emergency room where on initial blood work was found to have elevated liver enzymes and right upper quadrant ultrasound was done that showed dilated CBD to 1.7 centimeters. Patient denied any abdominal pain, nausea, vomiting, any urinary or bowel complaints along with any change of color of her urine or stool. He denied any hematemesis, hemoptysis or hematuria. Review of system was negative except mild productive cough with yellowish phlegm. 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 Problem list 1. COPD [place] IV patient 2. Elevated liver enzymes could be due choledocholithiasis 3. History of hypertension 4. History of alcohol abuse Plan We will admit patient under general medical floor We will keep patient nothing by mouth after 12 midnight for MRCP tomorrow and if needed or any signs of cholangitis may proceed to ERCP GI consultation and appreciated and we will follow Dr. Mantilla's recommendation and will send ANDREAS, AMA, we will trend LFTs, hepatitis panel, HIV, iron studies TRC and nebulization IV Solu-Medrol 40 mg every 8 hours CIWA protocol We will confirm CMR in the morning and meanwhile we will start him on amlodipine for hypertension Supplemental oxygen if needed to keep oxygen saturation more than 90% Patient has history of paroxysmal atrial fibrillation currently in sinus rhythm can be worked up as outpatient Pharmacological DVT prophylaxis Patient is full code LM AU, [facility] 03/26/162: Attending MD Review Statement Attending Statement Attending MD Statement: examined this patient, discuss w/resident/PA/AUTOMATIC MACHINES SUPERVISOR, agreed w/resident/PA/AUTOMATIC MACHINES SUPERVISOR Attending Assessment/Plan: 75 up M with h/o COPD on as needed 2L O2, HTN, Afib not on AC, TB s/p RUL resection, who is followed at the [facility], last admitted for COPDE (Mar 2015) is here for evaluation of weakness, lethargy, CARLTON and cough productive of yellow phlegm. He reports drinking 1 pint of vodka/ week, cannot recollect his last drink. He denies fever/chills, nausea, vomiting, abdominal pain or diarrhea. Vitals stable except for tachycardia wo 100-110's. Exam: No pallor or icterus. Chest b/l reduced air entry, scattered wheeze, Heart S1S2 regular, systolic murmur+, Abd soft, nontender, hutchins's sign negative. Labs: WBC 11.6, macrocytic anemia, Mag 1.1, T. Bili 2.0, D. Bili 0.9, AST 71, ALT 64, trop neg, EKG: Sinus tachycardia, PVC's, Qtc 490. CXR neg, USG Abd: cholelithiasis, dilabeted CBD 1.7 cm without calcified stone. CTA chest no PE, pulmonary nodule+. 1. Acute on chronic hypoxic respiratory failure, mild COPD exacerbation. No pneumonia. TRC nebs, sputum culture, IV steroids, no need for azithromycin. Keep O2 sats > 92%. 2. Cholelithiasis, with dilated CBD on ultrasound ?choledocholithiasis. Patient remains asymptomatic, no fever/chills. GI evaluated patient in ER. NPO with plan for MRCP in AM. Patient received Unasyn in ER, no need for antibiotics as no signs of cholangitis. IV fluids, trend LFTs. Check tylenol level and hepatitis panel. Will consider antibiotics and ERCP if patient becomes hypotensive or develops fever/ AMS. 3. Alcohol dependence. Monitor CIWA, replete electrolytes. DVT ppx Lovenox. Full code. Please confirm CMR in AM.
--- NOTE | 2016-03-26 21:08 | NUR ---
PT HAS BED #189-1
--- NOTE | 2016-03-26 21:11 | NUR ---
HOUSE STAFF AT BEDSIDE FOR PT EVAL
--- NOTE | 2016-03-26 21:53 | NUR ---
REPORT GIVEN TO BRENT BYRD
--- NOTE | 2016-03-26 21:53 | NUR ---
DISTRIBUTION CALLED FOR TRANSPOT
--- NOTE | 2016-03-26 21:54 | Admission Certification ---
Admission Certification Certification Statement - As attending physician, I certify that at the time of - admission, based on clinical presentation, severity of - symptoms, need for further diagnostic testing and - therapeutic interventions, and risk of adverse outcomes - without in-hospital treatment, in my clinical assessment, - this patient requires an acute hospital stay for a minimum - of two nights or longer. I have also considered psychsocial - factors such as support system, advanced age, financial - issues, cognitive issues, and failed out-patient treatments, - past re-admission history, safety of patient, and lack of - compliance as applicable. Specific rationale supporting this admission is: Acute on chronic hypoxic respiratory failure, COPD exacerbation, transaminitis, cholelithiasis.
[2016-03-26 22:21] VITALS: BP 140/82
[2016-03-27 01:02] VITALS: BP 140/80
--- NOTE | 2016-03-27 07:27 | PN- Housestaff ---
SABINA GASCA 03/27/16 0726: Subjective Follow-up For: Shortness of breath/acute hypoxic history failure Dilated common bile duct Subjective: Patient seen and examined this morning. He continues to do well. Does not complain of any abdominal pain right now. Plan is for MRCP at 10 AM. Patient has been a febrile, reports only mild abdominal discomfort in right upper quadrant. Review of Systems Constitutional: Reports: see HPI. Objective Last 24 Hrs of Vital Signs/I&O Vital Signs Date Time Temp Pulse Resp B/P Pulse O2 O2 Flow FiO2 Ox Delivery Rate 03/27 1010 Nasal 2.0L Cannula 03/27 0904 94 144/82 03/27 0800 98.4 94 20 144/82 98 Nasal 2.0L Cannula 03/27 0102 98.4 101 20 140/80 96 Room Air 03/27 0000 Nasal 2.0L Cannula 03/26 2258 Nasal 2.0L Cannula 03/26 2221 98.5 97 20 140/82 96 Room Air 03/26 1958 98.1 105 18 173/97 98 Room Air 03/26 1908 98 Nasal 2.0L Cannula 03/26 1710 101 20 168/97 96 Room Air 03/26 1546 102 20 155/98 98 Nasal 2.0L Cannula 03/26 1530 96 Nasal 2.0L Cannula 03/26 1510 96 Nasal 2.0L Cannula 03/26 1426 98.6 100 18 144/78 100 Nasal 2.0L Cannula Intake & Output 03/27 1600 03/27 0800 03/27 0000 Intake Total 1325 Output Total 650 Balance 675 Intake, IV 600 Intake, Oral 725 Output, Urine 650 Patient 79.379 kg Weight Physical Exam General Appearance: Alert, Oriented X3, Cooperative, No Acute Distress Skin: No Rashes, No Breakdown HEENT: Atraumatic Neck: Supple Cardiovascular: Regular Rate, Normal S1, Normal S2 Lungs: decreased breath sounds bilaterally Abdomen: Soft, No Tenderness Current Medications: Current Medications Sig/Ade Start time Last Medication Dose Route Stop Time Status Admin Albuterol Sulfate 3 ML Q4-6 PRN PRN 03/26 2300 AC INH Albuterol Sulfate 2 PUF Q4-6 PRN PRN 03/260 AC INH Albuterol Sulfate 3 ML ONCE ONE 03/26 1844 DC 03/26 INH 02/07 1846 1904 Albuterol Sulfate 3 ML ONCE ONE 03/26 1430 DC 03/26 INH 03/26 1431 1500 Amlodipine Besylate 2.5 MG DAILY 03/27 1000 AC 03/27 PO 0904 Ampicillin Sodium/ 0 .STK-MED ONE 03/26 1944 DC Sulbactam Sodium .ROUTE Ampicillin Sodium/ 3,000 MG ONCE ONE 03/26 1900 DC 03/26 Sulbactam Sodium IV 03/26 1929 1945 Sodium Chloride 100 ML Aspirin Buffered 81 MG DAILY 03/27 1000 AC 03/27 PO 0904 Enoxaparin Sodium 40 MG DAILY 03/27 1000 AC SC Ibuprofen 600 MG Q6P PRN 03/26 2245 DC PO Ipratropium Arminto 2.5 ML ONCE ONE 03/26 1430 DC 03/26 INH 03/26 1431 1500 Magnesium Sulfate 1 GM ONCE ONE 03/26 1615 DC 03/26 Dextrose/Water 100 ML IV 03/26 2013 1709 Methylprednisolone 40 MG Q8 03/27 0600 AC 03/27 IV 0611 Methylprednisolone 0 .STK-MED ONE 03/26 1507 DC .ROUTE Methylprednisolone 125 MG ONCE ONE 03/26 1430 DC 03/26 IV 03/26 1431 1529 Oxycodone HCl 10 MG Q6P PRN 03/26 2245 AC PO Sodium Chloride 1,000 ML ONCE ONE 03/26 1715 DC 03/26 IV 03/26 2354 1807 Tiotropium Arminto 1 PUF DAILY 03/27 1000 AC 03/27 INH 0903 Last 24 Hrs of Lab/Figueroa Results Last 24 Hrs of Labs/Mics: Laboratory Tests 03/27/16 0910: PT 12.2, INR 1.16 03/27/16 0655: Hepatitis A IgM Ab NONREACTIVE, Hep Bs Antigen NONREACTIVE, Hep B Core IgM Ab Conf NONREACTIVE, Hepatitis C Antibody NONREACTIVE, HIV 1&2 Ab Western Blot NONREACTIVE 03/27/16 0655: Anion Gap 13, Estimated GFR > 60, BUN/Creatinine Ratio 16.3, Total Bilirubin 1.3 , Direct Bilirubin 0.5 H, AST 44, ALT 56, Alkaline Phosphatase 143 H, Troponin I < 0.01, Total Protein 8.0, Albumin 4.3, CBC w Diff NO MAN DIFF REQ, RBC 4.00 L, MCV 98.4 H, MCH 33.0 H, RDW 15.9 H, MPV 7.1 L, Gran % 83.6 H, Lymphocytes % 10.4 L, Monocytes % 5.8, Eosinophils % 0.1, Basophils % 0.1, Absolute Granulocytes 5.4, Absolute Lymphocytes 0.7 L, Absolute Monocytes 0.4, Absolute Eosinophils 0, Absolute Basophils 0, PUBS MCHC 33.5, A.phagocytophil DNA PCR Pending 03/26/16 1527: Anion Gap 14, Estimated GFR > 60, BUN/Creatinine Ratio 15.0, Glucose 104 H, Calcium 9.3, Magnesium 1.1 L, TIBC 315, Ferritin 30.4, Total Bilirubin 2.0 H, Direct Bilirubin 0.9 H, AST 71 H, ALT 64, Alkaline Phosphatase 167 H, Troponin I < 0.01, Total Protein 7.7, Albumin 4.1, Globulin 3.6, Albumin/ Globulin Ratio 1.1, D-Dimer 623 H, CBC w Diff NO MAN DIFF REQ, RBC 4.20 L, MCV 97.8 H, MCH 33.2 H, RDW 15.4 H, MPV 6.5 L, Gran % 76.1 H, Lymphocytes % 10.8 L, Monocytes % 11.9 H, Eosinophils % 0.4, Basophils % 0.8, Absolute Granulocytes 8.8 H, Absolute Lymphocytes 1.3, Absolute Monocytes 1.4 H, Absolute Eosinophils 0.1, Absolute Basophils 0.1, PUBS MCHC 33.9 03/26/16 1429: ANDREAS Titer Pending, Anti-Nuclear Antibody Pending Microbiology 03/26 1924 BLOOD: Blood Culture - RECD Assessment/Plan Assessment: Patient is 75-year-old male with past medical history of COPD on as needed 2L O2 , HTN, Afib not on AC, TB s/p RUL resection, who is followed at the [facility], last admitted for COPDE (Mar 2015) is here for evaluation of weakness, lethargy, CARLTON and cough productive of yellow phlegm. He reports drinking 1 pint of vodka/ week , cannot recollect his last drink. He denies fever/chills, nausea, vomiting, abdominal pain or diarrhea. Vitals were stable on admission except for tachycardia with a heart rate of 100 His Labs were significant for leukocytosis of WBC 11.6, macrocytic anemia, Mag 1.1, T. Bili 2.0, D. Bili 0.9, AST 71, ALT 64, trop neg, EKG showed: Sinus tachycardia, PVC's, Qtc 490. Chest x-ray negative for acute pulmonary pathology Ultrasound abdomen was significant for cholelithiasis and dilated common bile duct of 1.7 without a stone visualized Problem list/assessment and plan 1. Acute on chronic hypoxic respiratory failure Patient has a history of COPD, his current symptoms could be due to mild COPD exacerbation. No pneumonia visualized on chest x-ray Will continue TRC nebs as needed Will obtain sputum culture Patient was started on IV steroids in ER and will gradually taper with improvement in symptoms, will keep off antibiotics for now and continue to monitor 2. Cholelithiasis, with dilated CBD on ultrasound The stone could not be visualized, GI consult service was requested. Patient will have an MRCP done today. If it is significant for a stone patient will go for ERCP Patient is however asymptomatic, no fever/chills/abdominal pain Will follow hepatitis panel GI wants to keep patient off of antibiotics for now GI to be notified that if he starts to develop abdominal pain or symptoms of cholecystitis 3. Alcohol dependence Patient has a history of alcohol abuse, according to him his last drink was one month ago. We will continue to monitor with CIWA DVT ppx Lovenox. Full code. Problem List: 1. COPD exacerbation 2. Dilated cbd, acquired Pain Ratin Pain Location: Right upper quadrant Pain Goal: Pain 4 or less Pain Plan: Tylenol when necessary Tomorrow's Labs & Rationales: CBC/BEP KENJI KENT MD 03/27/16 1150: Attending MD Review Statement Attending Statement Attending MD Statement: examined this patient, discuss w/resident/PA/CLINICAL TRIALS NURSE, agreed w/resident/PA/CLINICAL TRIALS NURSE, reviewed EMR data (avail) Attending Assessment/Plan: 75M PMH COPD on PRN home oxygen, HTN, alcohol use admitted with shortness of breath, cough, yellow sputum, elevated LFTs, found incidentally to have dilated CBD to 1.7cm. No evidence of cholangitis at this time. No evidence of pneumonia on imaging. Wheezing bilaterally, saturating 99% on 2L NC. 1. Acute exacerbation of COPD 2. Acute bronchitis 3. Dilated common bile duct 4. Elevated LFTs Plan - Continue on general medicine - Obtain MRCP - Follow GI recommendations - Continue Solumedrol 40mg q12h, change to PO tomorrow - TRC/nebulizer treatments - NPO, may require ERCP if MRCP is positive - No antibiotics at this time - Continue home medications - DVT PPx
--- NOTE | 2016-03-27 07:42 | PN- Gastroenterology ---
Assessment/Plan Assessment/Recommendations: 75 y/o male, poor historian, with majority of records at [facility] & [facility]. He is followed for primary care by Piedad Cortez APRN, at the [facility]. The patient is an ex-30-pk yr cigarette smoker, stopping in 1989, with COPD (has home O2, but does not use it regularly), remotely on Prednisone, with past history of leukocytosis related to this. He also admits to moderate EtOH, approximately 1 pint vodka/ week. He claims he has not had alcohol for over 1 month. He has a history of PAF (not on A/C therapy), HTN/non-DM, with RUL resection for TB at [facility] > 10 years ago, and ORIF right hip fracture at the [facility] > 10 years ago. He also has Vit D deficiency, anxiety & depression, and was last admitted to [facility] 04/07/15 - 04/12/15 for a flare of COPD, treated with IV Solu-Medrol, Symbicort, Spiriva, and Albuterol, with oxygen as needed. 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 The patient presented to the [place] ER 03/26/2016 at 2:15 PM, complaining of shortness of breath, wheezing, and cough productive of greenish sputum, without any pleuritic pain or chest pain. He claimed he was brought here because "there were no beds at the [facility]." There was no hemoptysis. He denied any fevers, chills, or symptoms of UTI. He felt weak and rundown. He was borderline tachycardic with borderline HTN and afebrile with O2 sat 2L nc- 100% upon presentation. Patient was treated with Albuterol, Atrovent, Solu-Medrol 125 mg IV, Mg, O2 & Unasyn 3g IVPB, as per the ER. Although the patient is not aware of this, he does have a history of cholelithiasis, incidentally found on 2015: CTA of chest. The patient has intermittent elevated LFTs, which date back several years. He denies any GI symptoms whatsoever, and currently denies any abdominal pain, nausea, vomiting, hematemesis, odynophagia, dysphagia, early satiety, melena, diarrhea, constipation, obstipation, tenesmus, or rectal bleeding. He denies any jaundice, dark urine, light stools, pruritus, weight loss, change in appetite, or confusion. He denies any history of hepatitis, blood transfusions, IVDA, illicit drugs, tattoos, body piercings, or needle sticks, although he has been on benzodiazepines in the past. He claims he had C. difficile treated x 2, last about 5 years ago. He claims a colonoscopy at the [facility] 6 years ago was "normal" He denies any history of DTs, seizures, or withdrawal. He denies any new outpatient medications. He cannot give a complete list of his medications, but claims he is on "a blood pressure pill, Albuterol, Spiriva, & ECASA 81 mg daily." He is not on any NSAIDs or significant amounts of Tylenol. There is no family history of GI malignancy, GI disease, or inherited liver disease. *Liver function tests were mildly abnormal on admission (which is chronic), and imaging studies obtained for his pulmonary symptoms and his mildly chronically elevated asymptomatic LFTs, incidentally showed cholelithiasis with dilated CBD, prompting the GI consult. He had borderline leukocytosis on admission, which is actually stable compared to his previous labs. He tolerated solid food uneventfully in the ER. 03/26/2016: Admission labs- WBC 11.6 (76% gran/9 gran Ab), H/H 13.9/41.1, MCV 97.8, RDW 15.4, PLT 400, glucose 104, BUN/Cr 12/0.8, GFR > 60, Na 140, K 3.7, HCO3 25, AG 14, *Mg 1.1, Ca 9.3, albumin 4.1, globulin 2.6, TBil 2.0 (initially without fracs), DBil 0.9, alk phos 167, AST 71, ALT 64, troponin < .01, elevated D-dimer 623. 03/26/2016: EKG- ST @ 102, nl axis, borderline prolonged QT interval, unifocal PVCs, no acute ischemic changes. 03/26/2016: XRY-CHEST XRAY, PA AND LATERAL- No acute abnormality of the chest. Stable chronic changes. 03/26/2016: US ABDOMEN LIMITED (RUQ)- 1. Cholelithiasis with 1 cm stone in GB neck. No acute change of the gallbladder wall. Negative ultrasonic Hutchins sign. 2. Dilated CBD to a diameter of 1.7 cm without calcified stone within the visualized portions of the duct. Normal IHD. MRCP could be helpful for further assessment. 3. No liver lesion. No elodia-hepatic ascites. 03/26/2016: CT ANGIOGRAM OF THE CHEST WITH AND WITHOUT CONTRAST (CT PULMONARY ANGIOGRAM FOR PE)- 1. Adequate contrast opacification of the pulmonary arterial vasculature, without evidence of pulmonary embolism. 2. Unchanged architectural distortion within the bilateral upper lobes, notably within the right lung apex. 3. 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 4. Stable 5 mm pulmonary nodule within the lingula. This finding is entirely nonspecific. Recommend follow-up chest CT in one year to establish two-year stability, per Fleischner Society guidelines, as detailed below. *The cholelithiasis is chronic, as are his mildly elevated LFTs, which have fluctuated in the past. The patient was admitted primarily for a flare of COPD. He has no GI symptoms. The dilated CBD on ultrasound is noted. The patient currently has no signs or symptoms of cholangitis, nor cholecystitis. Has a benign abdominal exam, with a negative Hutchins sign. *As of 03/27/2016, the patient is hemodynamically stable and afebrile. His respiratory status is improving. He has no signs or symptoms of cholangitis. There are no fevers, chills, hypotension, or confusion. He denies any abdominal pain, nausea or vomiting. He tolerated solids po the evening of 03/26/2016. * He is currently NPO, awaiting MRCP to evaluate the CBD. He is not on antibiotics from a GI perspective, although he did get a dose of Unasyn in the ER on admission to cover his lungs. IV steroids were started per medicine for COPD flare. Repeat LFTs are pending. Serologies have been requested. I expect his WBC to rise on IV steroids. He has no signs withdrawal. SUGGEST: *Maintain NPO for MRCP on 03/27/2016 (unavailable at [place] on Tuesdays).*Serial LFTs. *Check Hep A, B, & C serologies, HIV, ANDREAS, AMA, Fe, TIBC , ferritin. *No need for antibiotics from a GI perspective (the patient was given Unasyn by the ER to cover his lungs). *If MRCP shows choledocholithiasis, or if patient's clinical status changes and he develops signs of cholangitis ( i.e.- hypotension, change in mentation, fever spikes, etc.), call [facility] & will have to arrange for ERCP, although the patient was told that this will require intubation, which could be problematic with regards to his COPD. I expect his WBC to rise after IV steroids, prescribed for his COPD. Treatment of COPD, etc. , as per medical team. CIWA protocol, DT precautions, Ativan as needed, thiamine , folate, MVI, etc., but the patient apparently last drink one month [employer]. * Check PT with INR. *Stop Ibuprofen. The above was discussed with the patient's RN, who will convey this to the medical house staff. Further recommendations to follow, depending on clinical course. Problem List: 1. Cholelithiasis 2. Abnormal LFTs 3. Dilated cbd, acquired 4. Alcohol drinker Subjective Subjective: As of 03/27/2016, the patient is hemodynamically stable and afebrile. His respiratory status is improving. He has no signs or symptoms of cholangitis. There are no fevers, chills, hypotension or confusion. He denies any abdominal pain, nausea or vomiting. He tolerated solids po the evening of 03/26/2016. He is currently NPO, awaiting MRCP to evaluate the CBD. He is not on antibiotics from a GI perspective, although he did get a dose of Unasyn in the ER on admission to cover his lungs. IV steroids were started per medicine for COPD flare. Repeat LFTs are pending. Serologies have been requested. I expect his WBC to rise on IV steroids. He has no signs of withdrawal. Review of Systems: Full 14 point ROS otherwise non-contributory, and as above. Review of Systems Constitutional: Reports: malaise, weakness- (improving). Denies: chills, diaphoresis, fever, unexplained weight loss. EENTM: Reports: hearing changes. Denies: blurred vision, double vision, visual changes, eye pain, eye drainage, eye tearing, icterus, ear discharge, ear pain, ear redness, nasal congestion, epistaxis, nasal pain, throat pain, throat swelling, mouth pain, tooth pain. Cardiovascular: Reports: peripheral edema (mild). Denies: chest pain, edema, orthopena, palpitations, syncope. Respiratory: Reports: cough (chronic- greenish sputum), short of breath (improving), sputum production (greenish), wheezing (improving). Denies: hemoptysis, orthopnea, stridor. GI: Denies: abdominal pain, bloating, constipation, diarrhea, distention, bowel incontinence, melena, nausea, bloody stool, changes in stool, vomiting, steatorrhea. Genitourinary: Denies: discharge, dysuria, frequency, hematuria, hesitation, nocturia, pain, urgency. Musculoskeletal: Reports: joint pain (DJD, ORIF R hip). Denies: back pain, gout, joint swelling, muscle pain, muscle stiffness, neck pain. Skin: Denies: cysts, change in skin color, change in hair/nails, dryness, erythema, jaundice, lesions, lymphangitis, lumps, moles, rash. Neurological/Psychological: Reports: anxiety, depressed, emotional problems, weakness. Denies: ataxia, cognitive dysfunction, confusion, dementia, headache, numbness, paresthesia, pre-existing deficit, petit mal seizures, tingling, tremors, tonic- clonic seizures, unable to move lower ext, unable to move upper ext. Hematologic/Endocrine: Denies: bruising, bleeding, polyuria, polydipsia. Immunologic/Allergic: Denies: splenectomy, HIV/AIDS, lymphadenopathy. All Other Systems: Reviewed and Negative Objective Vital Signs and I&Os Vital Signs Date Time Temp Pulse Resp B/P Pulse O2 O2 Flow FiO2 Ox Delivery Rate 03/27 0102 98.4 101 20 140/80 96 Room Air 03/27 0000 Nasal 2.0L Cannula 03/26 2258 Nasal 2.0L Cannula 03/26 2221 98.5 97 20 140/82 96 Room Air 03/26 1958 98.1 105 18 173/97 98 Room Air 03/26 1908 98 Nasal 2.0L Cannula 03/26 1710 101 20 168/97 96 Room Air 03/26 1546 102 20 155/98 98 Nasal 2.0L Cannula 03/26 1530 96 Nasal 2.0L Cannula 03/26 1510 96 Nasal 2.0L Cannula 03/26 1426 98.6 100 18 144/78 100 Nasal 2.0L Cannula Intake & Output 03/27 1600 03/27 0400 03/26 1600 03/26 0400 03/25 1600 03/25 0400 Intake Total 625 700 Output Total 650 Balance -25 700 Intake, IV 600 Intake, Oral 25 700 Output, Urine 650 Patient 175 lb 160 lb Weight Physical Exam: Well-developed, chronically ill-appearing male, in no apparent distress. Sclera anicteric. Conjunctiva pink. Oropharynx clear. Poor dentition. No oral thrush. No aphthous ulcers. There is no adenopathy, thyromegaly, or JVD. No peripheral stigmata of inflammatory bowel disease or chronic liver disease on exam. No spiders on the anterior chest wall. No gynecomastia. No CVA tenderness. Lungs: decreased breath sounds at the upper lobes B/L, R > L, currently w/o wheezing. Prolonged expiratory phase. No rales or rhonchi. No definite egophony. Heart exam: regular rate rhythm, S1 and S2, with soft I/ systolic murmur & occasional ectopic beat. Old scar right anterior chest wall & mid-back. Abdominal exam: normal bowel sounds, soft belly, mildly distended, nontender, without guarding or rebound. No mass. No definite organomegaly. Liver approximately 15 cm by percussion. No palpable spleen tip. * Negative Hutchins sign. No fluid shift. No pulsatile mass. No epigastric bruit. Digital rectal exam: deferred by patient. Extremities: mild cyanosis, no clubbing, trace edema LE B/L. s/p R THR. No palpable cords. No rash. No palmar erythema. No Dupuytren's contractures. Distal pulses 1+ bilaterally. DTRs 2+ bilaterally. Alert and oriented x 3. No tremor. No asterixis. Current Medications: Current Medications Sig/Ade Start time Last Medication Dose Route Stop Time Status Admin Albuterol Sulfate 3 ML Q4-6 PRN PRN 03/26 2300 AC INH Albuterol Sulfate 2 PUF Q4-6 PRN PRN 03/26 2300 AC INH Albuterol Sulfate 3 ML ONCE ONE 03/26 1845 DC 03/26 INH 03/26 1846 1904 Albuterol Sulfate 3 ML ONCE ONE 03/26 1430 DC 03/26 INH 03/26 1431 1500 Amlodipine Besylate 2.5 MG DAILY 03/27 1000 AC PO Ampicillin Sodium/ 0 .STK-MED ONE 03/26 1944 DC Sulbactam Sodium .ROUTE Ampicillin Sodium/ 3,000 MG ONCE ONE 03/26 1900 DC 03/26 Sulbactam Sodium IV 03/26 1929 1945 Sodium Chloride 100 ML Aspirin Buffered 81 MG DAILY 03/27 1000 AC PO Enoxaparin Sodium 40 MG DAILY 03/27 1000 AC SC Ibuprofen 600 MG Q6P PRN 03/26 2245 AC PO Ipratropium [place] 2.5 ML ONCE ONE 03/26 1430 DC 03/26 INH 03/26 1431 1500 Magnesium Sulfate 1 GM ONCE ONE 03/26 1615 DC 03/26 Dextrose/Water 100 ML IV 03/26 2013 170 Methylprednisolone 40 MG Q8 03/27 0600 AC 03/27 IV 0611 Methylprednisolone 0 .STK-MED ONE 03/26 1507 DC .ROUTE Methylprednisolone 125 MG ONCE ONE 03/26 1430 DC 03/26 IV 03/26 1431 1529 Oxycodone HCl 10 MG Q6P PRN 03/26 2245 AC PO Sodium Chloride 1,000 ML ONCE ONE 03/26 1715 DC 03/26 IV 03/26 2354 1807 Tiotropium [place] 1 PUF DAILY 03/27 1000 AC INH Results Pertinent Lab Results: Laboratory Tests 03/27 03/27 03/26 0655 0655 1527 Chemistry Sodium (137 - 145 mmol/L) Pending 140 Potassium (3.5 - 5.1 mmol/L) Pending 3.7 Chloride (98 - 107 mmol/L) Pending 102 Carbon Dioxide (22 - 30 mmol/L) Pending 25 Anion Gap (5 - 16) Pending 14 BUN (9 - 20 mg/dL) Pending 12 Creatinine (0.7 - 1.2 mg/dL) Pending 0.8 Estimated GFR (>60 ml/min) > 60 BUN/Creatinine Ratio (7 - 25 %) Pending 15.0 Glucose (65 - 99 mg/dL) 104 H Calcium (8.4 - 10.2 mg/dL) 9.3 Magnesium (1.6 - 2.3 mg/dL) 1.1 L TIBC (261 - 462 ug/dL) 315 Ferritin (17.9 - 464 ng/mL) 30.4 Total Bilirubin (0.2 - 1.3 mg/dL) Pending 2.0 H Direct Bilirubin (< 0.4 mg/dL) Pending 0.9 H AST (17 - 59 U/L) Pending 71 H ALT (21 - 72 U/L) Pending 64 Alkaline Phosphatase (< 127 U/L) Pending 167 H Troponin I (<0.11 ng/ml) < 0.01 Total Protein (6.3 - 8.2 g/dL) Pending 7.7 Albumin (3.5 - 5.0 g/dL) Pending 4.1 Globulin (1.9 - 4.2 gm/dL) 3.6 Albumin/Globulin Ratio (1.1 - 2.2 %) 1.1 Coagulation D-Dimer (70 - 232 ng/ml) 623 H Hematology CBC w Diff Pending NO MAN DIFF REQ WBC (4.8 - 10.8 /CUMM) Pending 11.6 H RBC (4.70 - 6.10 /CUMM) Pending 4.20 L Hgb (14.0 - 18.0 G/DL) Pending 13.9 L Hct (42 - 52 %) Pending 41.1 L MCV (80.0 - 94.0 FL) Pending 97.8 H MCH (27.0 - 31.0 PG) Pending 33.2 H RDW (11.5 - 14.5 %) Pending 15.4 H Plt Count (130 - 400 /CUMM) Pending 400 MPV (7.4 - 10.4 FL) Pending 6.5 L Gran % (42.2 - 75.2 %) 76.1 H Lymphocytes % (20.5 - 51.1 %) 10.8 L Monocytes % (1.7 - 9.3 %) 11.9 H Eosinophils % (0 - 5 %) 0.4 Basophils % (0.0 - 2.0 %) 0.8 Absolute Granulocytes (1.4 - 6.5 /CUMM) 8.8 H Absolute Lymphocytes (1.2 - 3.4 /CUMM) 1.3 Absolute Monocytes (0.10 - 0.60 /CUMM) 1.4 H Absolute Eosinophils (0.0 - 0.7 /CUMM) 0.1 Absolute Basophils (0.0 - 0.2 /CUMM) 0.1 PUBS MCHC (33.0 - 37.0 G/DL) Pending 33.9 Serology A.phagocytophil DNA PCR Pending Hepatitis A IgM Ab Pending Hep Bs Antigen Pending Hep B Core IgM Ab Conf Pending Hepatitis C Antibody Pending HIV 1&2 Ab Western Blot Pending 03/26 1428 Immunology ANDREAS Titer Pending Anti-Nuclear Antibody Pending Imaging/Other Studies: 03/26/2016: EKG- ST @ 102, nl axis, borderline prolonged QT interval, unifocal PVCs, no acute ischemic changes. 03/26/2016: XRY-CHEST XRAY, [place] AND LATERAL- No acute abnormality of the chest. Stable chronic changes. 03/26/2016: US ABDOMEN LIMITED (RUQ)- 1. Cholelithiasis with 1 cm stone in GB neck. No acute change of the gallbladder wall. Negative ultrasonic Hutchins sign. 2. Dilated CBD to a diameter of 1.7 cm without calcified stone within the visualized portions of the duct. Normal IHD. MRCP could be helpful for further assessment. 3. No liver lesion. No elodia-hepatic ascites. 03/26/2016: CT ANGIOGRAM OF THE CHEST WITH AND WITHOUT CONTRAST (CT PULMONARY ANGIOGRAM FOR PE)- 1. Adequate contrast opacification of the pulmonary arterial vasculature, without evidence of pulmonary embolism. 2. Unchanged architectural distortion within the bilateral upper lobes, notably within the right lung apex. 3. 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 4. Stable 5 mm pulmonary nodule within the lingula. This finding is entirely nonspecific. Recommend follow-up chest CT in one year to establish two-year stability, per Fleischner Society guidelines, as detailed below.
[2016-03-27 08:00] VITALS: BP 144/82
[2016-03-27 08:08] LABS: ABSOLUTE BASOPHIL COUNT 0 /CUMM (0.0-0.2); ABSOLUTE EOSINOPHIL COUNT 0 /CUMM (0.0-0.7); ABSOLUTE GRANULOCYTE CT 5.4 /CUMM (1.4-6.5); ABSOLUTE LYMPH COUNT 0.7 /CUMM (1.2-3.4); ABSOLUTE MONOCYTE COUNT 0.4 /CUMM (0.10-0.60); BASOPHIL % 0.1 % (0.0-2.0); EOSINOPHIL % 0.1 % (0-5); HEMATOCRIT 39.3 % (42-52); MEAN CORPUSCULAR HGB CONC 33.5 G/DL (33.0-37.0); MEAN CORPUSCULAR VOLUME 98.4 FL (80.0-94.0); MEAN PLATELET VOLUME 7.1 FL (7.4-10.4); PLATELET COUNT 344 /CUMM (130-400); RBC DISTRIBUTION WIDTH 15.9 % (11.5-14.5); WHITE BLOOD CELL COUNT 6.5 /CUMM (4.8-10.8)
[2016-03-27 08:53] LABS: GRANULOCYTE % 83.6 % (42.2-75.2)
[2016-03-27 10:10] LABS: PT 12.2 SEC (9.4-12.5)
--- NOTE | 2016-03-27 12:39 | MRI REPORT ---
EXAMINATION: MR ABDOMEN WITHOUT CONTRAST/MRCP CLINICAL INFORMATION: Elevated LFTs. Dilated common bile duct. COMPARISON: CTA of the chest dated 03/26/2016 and 03/02/2015. Right upper quadrant ultrasound dated 03/26/2016. TECHNIQUE: An MRI scan of the abdomen was performed using multiple imaging sequences and imaging planes. As per the MRCP protocol, heavily T2-weighted 3-D high-resolution MRCP sequences were obtained in the coronal plane along with thin and thick slab coronal images. Coronal MIP reconstructions were obtained on an independent workstation. FINDINGS: GALLBLADDER, BILIARY TREE: Gallbladder is well distended and again demonstrates small intraluminal gallstones and layering sludge. No gallbladder wall thickening or pericholecystic fluid is seen. There is moderate central intrahepatic and extrahepatic ductal dilatation seen. Common hepatic duct measures 1.6 cm in diameter and tapers to 1.1 cm in the mid common bile duct and 0.8 cm near the ampulla. There is a nonobstructing 0.8 x 0.3 cm gallstone seen within the distal common bile duct (series 2, image 12). No other biliary filling defects are seen. LIVER: Normal size and only remarkable for diffuse hepatic steatosis and moderate central intrahepatic ductal dilatation. No focal mass. PANCREAS: Diffusely atrophic with mild dilatation of the pancreatic duct, measuring up to 0.4 cm in diameter. No variant ductal anatomy. No focal pancreatic mass. SPLEEN: Normal size and appearance. ADRENAL GLANDS AND KIDNEYS: There is a 1.6 x 1.3 cm mass in the right adrenal gland, which demonstrates loss in signal on opposed phase sequences, consistent with a small adrenal adenoma versus nodular hypertrophy of the adrenal gland. The left adrenal gland is unremarkable. The kidneys bilaterally are symmetric in size and demonstrate a few scattered small cysts, measuring up to 0.9 cm in the lower pole of the left kidney. There is slight fullness of the left renal collecting system without hydroureter demonstrated, similar to the prior exams. BOWEL LOOPS: Unremarkable. LYMPHOVASCULAR STRUCTURES: Abdominal aorta normal in caliber. No significant abdominal adenopathy or free fluid collection. BONES: Mild in shape thoracolumbar scoliosis with multilevel moderate vertebral spondylosis. No suspicious focal findings. IMPRESSION: 1. Abnormally dilated central intrahepatic bile ducts and extrahepatic bile ducts with a nonobstructing 0.8 cm stone seen within the distal common bile duct. 2. Diffuse hepatic steatosis. 3. Atrophic pancreas with mild secondary dilatation of the pancreatic duct. 4. Small mass in right adrenal gland, most consistent with a benign finding, such as a small lipid rich adenoma versus nodular hypertrophy of the adrenal gland. 5. Chronic mild left-sided hydronephrosis and a few scattered subcentimeter sized renal cysts.
--- NOTE | 2016-03-27 13:27 | Event Note ---
Event Note Event Note: Spoke with Dr. Gonsalez regarding MRCP results. Patient has a non obstructing stone in distal CBD so would need ERCP eventually. Plan is to go ahead with elective ERCP on Friday with Dr. Garcia. Patient is given 1 dos of Vitamin K INR checked Will request for pulmonary consult pre-procedure as the patient will have to be intubated during the procedure.
[2016-03-27 16:26] VITALS: BP 117/70
[2016-03-27 23:14] VITALS: BP 148/100
[2016-03-28] VITALS: BP 148/100
--- NOTE | 2016-03-28 07:40 | PN- Housestaff ---
SABINA GASCA 03/28/16 0739: Subjective Follow-up For: Dialated CBD COPD exacerbation Subjective: Patient seen and examined. doing great. No new complains. Was explained that he will have ERCP done on friday. Patient will be evaluated today for pulmonary clearence for intubation. Afebrile, no abdominal pain. Apetite good. Review of Systems Constitutional: Reports: see HPI. Objective Last 24 Hrs of Vital Signs/I&O Vital Signs Date Time Temp Pulse Resp B/P Pulse O2 O2 Flow FiO2 Ox Delivery Rate 03/28 0857 114 120/60 03/28 0854 97.9 114 20 120/60 97 Room Air Room Air 03/28 0816 98 Nasal 2.0L Cannula 03/28 0000 97.9 115 148/100 03/28 0000 97 Room Air 03/27 2314 97.9 115 18 148/100 97 Room Air 03/27 2024 98 Nasal 2.0L Cannula 03/27 1626 97.7 122 18 117/70 97 Intake & Output 03/28 1600 03/28 0800 03/28 0000 Intake Total 480 480 Output Total Balance 480 480 Intake, Oral 480 480 Physical Exam General Appearance: Alert, Oriented X3, Cooperative, No Acute Distress Skin: No Rashes Cardiovascular: Normal S1, Normal S2 Lungs: Normal Air Movement Abdomen: Normal Bowel Sounds, Soft, No Tenderness Neurological: Normal Speech Extremities: Normal Pulses Current Medications: Current Medications Sig/Ade Start time Last Medication Dose Route Stop Time Status Admin Albuterol Sulfate 3 ML Q4-6 PRN PRN 03/26 2300 AC INH Albuterol Sulfate 2 PUF Q4-6 PRN PRN 03/26 2300 AC 03/28 INH 0903 Amlodipine Besylate 2.5 MG DAILY 03/27 1000 AC 03/28 PO 0857 Aspirin Buffered 81 MG DAILY 03/27 1000 AC 03/28 PO 0857 Enoxaparin Sodium 40 MG DAILY 03/27 1000 DC SC Folic Acid 1 MG DAILY 03/27 1033 AC 03/28 PO 0857 Heparin Sodium 5,000 UNIT Q8 03/27 1400 AC (Porcine) SC Methylprednisolone 40 MG Q12 03/27 2200 AC 03/28 IV 0855 Multivitamins 1 TAB DAILY 03/27 1033 AC 03/28 PO 0857 Phytonadione 10 MG ONCE ONE 03/27 1400 DC 03/27 [place] 03/27 1401 1558 Thiamine HCl 100 MG DAILY 03/27 1033 AC 03/28 PO 0857 Tiotropium [place] 1 PUF DAILY 03/27 1000 AC 03/28 INH 0857 Last 24 Hrs of Lab/Figueroa Results Last 24 Hrs of Labs/Mics: Laboratory Tests 03/28/16 0915: Sodium Pending, Potassium Pending, Chloride Pending, Carbon Dioxide Pending, Anion Gap Pending, BUN Pending, Creatinine Pending, BUN/Creatinine Ratio Pending , Total Bilirubin Pending, Direct Bilirubin Pending, AST Pending, ALT Pending, Alkaline Phosphatase Pending, Total Protein Pending, Albumin Pending, CBC w Diff Pending, WBC Pending, RBC Pending, Hgb Pending, Hct Pending, MCV Pending, MCH Pending, RDW Pending, Plt Count Pending, MPV Pending, Gran % Pending, Lymphocytes % Pending, Monocytes % Pending, Eosinophils % Pending, Basophils % Pending, Absolute Granulocytes Pending, Absolute Lymphocytes Pending, Absolute Monocytes Pending, Absolute Eosinophils Pending, Absolute Basophils Pending, PUBS MCHC Pending Assessment/Plan Assessment: Patient is 75-year-old male with past medical history of COPD on as needed 2L O2 , HTN, Afib not on AC, TB s/p RUL resection, who is followed at the [facility], last admitted for COPDE (Mar 2015) is here for evaluation of weakness, lethargy, CARLTON and cough productive of yellow phlegm. He reports drinking 1 pint of vodka/ week , cannot recollect his last drink. He denies fever/chills, nausea, vomiting, abdominal pain or diarrhea. Vitals were stable on admission except for tachycardia with a heart rate of 100 His Labs were significant for leukocytosis of WBC 11.6, macrocytic anemia, Mag 1.1, T. Bili 2.0, D. Bili 0.9, AST 71, ALT 64, trop neg, EKG showed: Sinus tachycardia, PVC's, Qtc 490. Chest x-ray negative for acute pulmonary pathology Ultrasound abdomen was significant for cholelithiasis and dilated common bile duct of 1.7 without a stone visualized Problem list/assessment and plan 1. Acute on chronic hypoxic respiratory failure Patient has a history of COPD, his current symptoms could be due to mild COPD exacerbation. No pneumonia visualized on chest x-ray Will continue [facility] as needed Sputum culture is negative Patient was started on IV steroids in ER and will switch to PO today will keep off antibiotics for now and continue to monitor 2. Cholelithiasis, with dilated CBD on ultrasound The stone could not be visualized, GI consult service was requested. Patient had an MRCP done yesterday. He has 0.8 cm non obstructing stone. Plan is for ERCP on friday by Dr. Lemos at 2 pm/ Patient remains asymptomatic, no fever/chills/abdominal pain Hepatitis panel is negative GI wants to keep patient off of antibiotics for now GI to be notified that if he starts to develop abdominal pain or symptoms of cholecystitis 3. Alcohol dependence Patient has a history of alcohol abuse, according to him his last drink was one month ago. We will continue to monitor with CIWA DVT ppx Lovenox. Full code. Problem List: 1. COPD exacerbation Pain Ratin Pain Location: none Pain Goal: Pain 4 or less Pain Plan: tylenol for pain prn Tomorrow's Labs & Rationales: cbc bep KENJI KENT MD 03/28/16 1757: Attending MD Review Statement Attending Statement Attending MD Statement: examined this patient, discuss w/resident/PA/DESKTOP PUBLISHER, agreed w/resident/PA/DESKTOP PUBLISHER, reviewed EMR data (avail) Attending Assessment/Plan: 75M PMH COPD on PRN home oxygen, HTN, alcohol use admitted with shortness of breath, cough, yellow sputum, elevated LFTs, found incidentally to have dilated CBD to 1.7cm. No evidence of cholangitis at this time. No evidence of pneumonia on imaging. Wheezing bilaterally, saturating 99% on 2L NC. 1. Acute exacerbation of COPD 2. Acute bronchitis 3. Dilated common bile duct 4. Elevated LFTs Plan - Continue on general medicine - NPO after midnight for ERCP - Follow GI recommendations - Continue Solumedrol 40mg q12h, change to PO tomorrow - TRC/nebulizer treatments - No antibiotics at this time - Continue home medications - DVT PPx
[2016-03-28 08:54] VITALS: BP 120/60
[2016-03-28 10:46] LABS: ABSOLUTE BASOPHIL COUNT 0 /CUMM (0.0-0.2); ABSOLUTE EOSINOPHIL COUNT 0 /CUMM (0.0-0.7); ABSOLUTE GRANULOCYTE CT 14.7 /CUMM (1.4-6.5); ABSOLUTE LYMPH COUNT 1.1 /CUMM (1.2-3.4); ABSOLUTE MONOCYTE COUNT 0.7 /CUMM (0.10-0.60); BASOPHIL % 0 % (0.0-2.0); EOSINOPHIL % 0.1 % (0-5); HEMATOCRIT 40.6 % (42-52); MEAN CORPUSCULAR HGB 32.8 PG (27.0-31.0); MEAN CORPUSCULAR HGB CONC 33.4 G/DL (33.0-37.0); MEAN CORPUSCULAR VOLUME 98.2 FL (80.0-94.0); MEAN PLATELET VOLUME 7.6 FL (7.4-10.4); RBC DISTRIBUTION WIDTH 15.6 % (11.5-14.5); RED BLOOD CELL CT 4.13 /CUMM (4.70-6.10)
--- NOTE | 2016-03-28 11:06 | Cons- Pulmonary ---
General Information and HPI Consulting Request Date of Consult: 03/28/16 Requested By: med team History of Present Illness: Patient is a 75-year-old male who is BIBA after he felt weak and short of breath at home and called 911. Patient reports worsening shortness of breath accompanied by general weakness over the past couple of days. Patient reports that he has COPD at baseline and has shortness of breath on exertion however it has worsened. Reports coughing with little amounts of yellowish phlegm at times , does not report fever or chills. Reports dehydration and weakness due to being unable to go to the kitchen very often to eat and drink as it provokes SOB. Denies any sick contacts. Denies leg swelling, orthopnea, chest pain or palpitation. Patient does not report any abdominal pain, changes in the stool, any urinary symptoms or changes in urine color. He has history of COPD. Has oxygen at home. Has not smoked for 30 years. He follows with pulse oximetry at home and uses oxygen as needed He has previous history of tuberculosis for which he is being treated more than 25 years ago and he did have lung surgery probably lobectomy. Has not been intubated in the recent past and has had significant shortness of breath on minimal exertion He has history of obstructive sleep apnea but he is not compliant with CPAP Review of Systems Constitutional: Reports: malaise, weakness. Denies: chills, fever. EENTM: Denies: blurred vision, nasal congestion, throat pain. Cardiovascular: Denies: chest pain, palpitations, peripheral edema, syncope. Respiratory: Reports: cough, short of breath, sputum production. GI: Denies: abdominal pain, changes in stool. Genitourinary: Reports: no symptoms. Musculoskeletal: Reports: no symptoms. Skin: Reports: no symptoms. Neurological/Psychological: Reports: weakness. Hematologic/Endocrine: Reports: no symptoms. Physical Exam General Appearance Alert, Oriented X3, Cooperative, Mild Distress Skin erythematous plaques with greasy looking yellowish scales on the face more prominent and the nose and chin HEENT Atraumatic, PERRLA, EOMI, Mucous Membr. moist/pink Neck Supple, No JVD Lymphatic No cervical LAP Cardiovascular Normal S1, Normal S2, tachycardic, irregular Lungs decreased breath sounds diffuse and bilateral, no wheezing or rhonchi Abdomen Normal Bowel Sounds, Soft, No Tenderness, Hutchins sign negative Neurological Normal Speech, Strength at 5/5 X4 Ext, Normal Tone, Sensation Intact, Cranial Nerves 3-12 NL Extremities Normal Pulses, No Tenderness/Swelling, mild nonpitting edema on lower extremities bilaterally Vascular Normal Pulses, Pulses Symmetrical Allergies/Medications Allergies: Coded Allergies: NO KNOWN ALLERGIES (04/07/15) Home Med List: Albuterol Sulfate (Proair Hfa) 90 MCG HFA.AER.AD 2 PUF INH Q4-6 PRN PRN COPD (Reported) Albuterol Sulfate 2.5 MG/3 ML (0.083 %) VIAL.NEB 1 Vial INH/KARTHIKEYAN PRN COPD ( Reported) Aspirin (Ecotrin*) 81 MG TABLET.DR 1 TAB PO DAILY HEART/BLOOD (Reported) [BP] (Unknown Strength) (Unknown Dose) PO DAILY BP (Reported) Tiotropium [place] (Spiriva) 18 MCG CAP.W.DEV 1 CAP INH DAILY COPD (Reported) Review of Systems Review of Systems Constitutional: Reports: see HPI. 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 MOTHER, , Age 93; Cause: Old age. SON, , Age 50-60. Relation not specified for: FH: myocardial infarction Psychosocial History Where Do You Live? Home Who Do You Live With? self Services at Home: Home Health Aide (? compliance), Oxygen Primary Language: Wolof Smoking Status: Former Smoker (stopped 30 years ago) ETOH Use: occasional use, pint of vodka, 2-3 times a week Illicit Drug Use: denies illicit drug use Living Will? no Power of Hog Trader/HCP? no Other Social History: since 2003. Lives alone. Ex-30-pk-yr cigarette smoker, D/C 1989. 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 No drugs or IVDA. [employer] vet [id number]. Worked for [employer], moving heavy [employer], then worked for [employer]. Retired 2005. Had 2 sons. 1 son- 50, unknown cause. 1 son- 47, [employer]. Functional Ability ADLs Independent: dressing, eating, toileting, bathing. Ambulation: independent IADLs Independent: shopping (but takes long time to do them), housework, finances, food prep, telephone, transportation, medication admin. Employment History Employment: Retired Profession/Employer: [employer], then [employer] Exam & Diagnostic Data Last 24 Hrs of Vital Signs/I&O Vital Signs Date Time Temp Pulse Resp B/P Pulse O2 O2 Flow FiO2 Ox Delivery Rate 03/28 0857 114 120/60 03/28 0854 97.9 114 20 120/60 97 Room Air Room Air 03/28 0816 98 Nasal 2.0L Cannula 03/28 0000 97.9 115 148/100 03/28 0000 97 Room Air 03/27 2314 97.9 115 18 148/100 97 Room Air 03/27 2024 98 Nasal 2.0L Cannula 03/27 1626 97.7 122 18 117/70 97 Intake & Output 03/28 1600 03/28 0800 03/28 0000 Intake Total 480 480 Output Total Balance 480 480 Intake, Oral 480 480 Last 48 Hrs of Labs/Figueroa: Laboratory Tests 03/28/16 0915: Sodium Pending, Potassium Pending, Chloride Pending, Carbon Dioxide Pending, Anion Gap Pending, BUN Pending, Creatinine Pending, BUN/Creatinine Ratio Pending , Total Bilirubin Pending, Direct Bilirubin Pending, AST Pending, ALT Pending, Alkaline Phosphatase Pending, Total Protein Pending, Albumin Pending, CBC w Diff Pending, WBC Pending, RBC Pending, Hgb Pending, Hct Pending, MCV Pending, MCH Pending, RDW Pending, Plt Count Pending, MPV Pending, PUBS MCHC Pending 03/27/16 0910: PT 12.2, INR 1.16 03/27/16 0655: Hepatitis A IgM Ab NONREACTIVE, Hep Bs Antigen NONREACTIVE, Hep B Core IgM Ab Conf NONREACTIVE, Hepatitis C Antibody NONREACTIVE, HIV 1&2 Ab Western Blot NONREACTIVE 03/27/16 0655: Anion Gap 13, Estimated GFR > 60, BUN/Creatinine Ratio 16.3, Total Bilirubin 1.3 , Direct Bilirubin 0.5 H, AST 44, ALT 56, Alkaline Phosphatase 143 H, Troponin I < 0.01, Total Protein 8.0, Albumin 4.3, CBC w Diff NO MAN DIFF REQ, RBC 4.00 L, MCV 98.4 H, MCH 33.0 H, RDW 15.9 H, MPV 7.1 L, Gran % 83.6 H, Lymphocytes % 10.4 L, Monocytes % 5.8, Eosinophils % 0.1, Basophils % 0.1, Absolute Granulocytes 5.4, Absolute Lymphocytes 0.7 L, Absolute Monocytes 0.4, Absolute Eosinophils 0, Absolute Basophils 0, PUBS MCHC 33.5, A.phagocytophil DNA PCR Pending 03/26/16 1527: Anion Gap 14, Estimated GFR > 60, BUN/Creatinine Ratio 15.0, Glucose 104 H, Calcium 9.3, Magnesium 1.1 L, TIBC 315, Ferritin 30.4, Total Bilirubin 2.0 H, Direct Bilirubin 0.9 H, AST 71 H, ALT 64, Alkaline Phosphatase 167 H, Troponin I < 0.01, Total Protein 7.7, Albumin 4.1, Globulin 3.6, Albumin/ Globulin Ratio 1.1, D-Dimer 623 H, CBC w Diff NO MAN DIFF REQ, RBC 4.20 L, MCV 97.8 H, MCH 33.2 H, RDW 15.4 H, MPV 6.5 L, Gran % 76.1 H, Lymphocytes % 10.8 L, Monocytes % 11.9 H, Eosinophils % 0.4, Basophils % 0.8, Absolute Granulocytes 8.8 H, Absolute Lymphocytes 1.3, Absolute Monocytes 1.4 H, Absolute Eosinophils 0.1, Absolute Basophils 0.1, PUBS MCHC 33.9 03/26/16 1429: ANDREAS Titer Pending, Anti-Nuclear Antibody Pending Assessment/Plan Impression/Plan: SIGNIFICANT DATA Room air sat when I checked it was 97% CT scan of the chest abdomen reviewed No pulmonary embolism, architectural distortion within the upper lobes especially in the right apex with significant pleural calcification within bilateral hemithoraces 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 He does have right upper lobe distortion and bronchiectasis with His gallbladder showed dilated CBD MRI of the abdomen reviewed showed abnormally dilated central intrahepatic bile ducts with extrahepatic stone, diffuse hepatic steatosis, atrophic pancreas, probably benign adrenal adenoma with chronic mild left-sided hydronephrosis. IMPRESSION This is a 75-year-old gentleman who is followed at [facility], 30-pack- year smoking history quit in 1989, significant chronic obstructive and restrictive lung disease with previous history of tuberculosis with surgery done in early in the right upper lobe with status post anti-TB treatment, previous history of moderate alcohol use, history of paroxysmal atrial fibrillation not on anticoagulation, hypertension, previous history of C. difficile, cholelithiasis, anxiety and depression, previous history of asbestos exposure by his CT findings now comes in with * Shortness of breath which seems to have rapidly resolved in a gentleman with both obstructive and restrictive lung disease. * He has clinically moderate to severe COPD with significant restriction as well due to previous tuberculosis and mild pulmonary fibrosis. He also has restrictive lung disease with significant pleural plaque bilaterally, the pleural plaques appears to be more in the basal area probably related to pleurisy he may have had from tuberculosis. Asbestos related pleural plaque is a possibility but maybe less likely. * 5 mm lung nodule stable with one-year follow-up CT * Choledocholithiasis with elevated bilirubin * Previous history of alcohol use patient states that he has not been drinking in the past 2-4 weeks. Hence immunosuppressed * Proximal atrial fibrillation not on anticoagulation * Remote history of tuberculosis with right upper lobe surgery probably segmentectomy with chronic lung disease with bronchiectasis with no evidence suggestive of active TB recurrence * Chronic lung disease and patient is on oxygen on and off as needed depending on his O2 sat at this time not hypoxemic * Chronic hypomagnesemia probably related to GI loss. * Glucose intolerance with atrophic pancreas with previous history of alcoholic use * Previous history of C. difficile RECOMMENDATION * As he is not significantly wheezing discontinue Solu-Medrol * [id number] nebulizer therapy with ipratropium and albuterol * Hold Spiriva till discharge * Start him on Flovent 222 puffs twice a day * Sputum culture * Antibiotics if needed for his biliary sepsis per GI. At this time no clinical evidence suggestive of active infection patient does not have significant leukocytosis or fever. If he does have any evidence of fever after his steroid stopped start him on high-dose Unasyn * Aggressive magnesium replacement intravenously * Watch for alcohol withdrawal * Patient can undergo ERCP tomorrow and could be intubated if needed he would need to be ventilated with lower tidal volumes as he has both obstructive restrictive lung disease. Discussed the risks and benefits of intubation with the patient and he agrees to go ahead with the procedure and accepts all risks. If he were to get intubated early extubation should be contemplated. Consult Acknowledgment - Thank you for your consult request.
[2016-03-28 11:17] LABS: GRANULOCYTE % 89.1 % (42.2-75.2); PLATELET COUNT 349 /CUMM (130-400); WHITE BLOOD CELL COUNT 16.5 /CUMM (4.8-10.8)
--- NOTE | 2016-03-28 13:58 | PN- Gastroenterology ---
Assessment/Plan Assessment/Recommendations: 75 y/o male, poor historian, with majority of records at [facility] & [facility]. He is followed for primary care by Piedad Cortez APRN, at the [facility]. The patient is an ex-30-pk yr cigarette smoker, stopping in 1989, with COPD (has home O2, but does not use it regularly), remotely on Prednisone, with past history of leukocytosis related to this. He also admits to moderate EtOH, approximately 1 pint vodka/ week. He claims he has not had alcohol for over 1 month. He has a history of PAF (not on A/C therapy), HTN/non-DM, with RUL resection for TB at [facility] > 10 years ago, and ORIF right hip fracture at the [facility] > 10 years ago. He also has Vit D deficiency, anxiety & depression, and was last admitted to [facility] 04/07/15 - 04/12/15 for a flare of COPD, treated with IV Solu-Medrol, Symbicort, Spiriva, and Albuterol, with oxygen as needed. He does not see a commodity trader or a cherry dipper. The patient presented to the [place] ER 03/26/2016 at 2:15 PM, complaining of shortness of breath, wheezing, and cough productive of greenish sputum, without any pleuritic pain or chest pain. He claimed he was brought here because "there were no beds at the [facility]." There was no hemoptysis. He denied any fevers, chills, or symptoms of UTI. He felt weak and rundown. He was borderline tachycardic with borderline HTN and afebrile with O2 sat 2L nc- 100% upon presentation. Patient was treated with Albuterol, Atrovent, Solu-Medrol 125 mg IV, Mg, O2 & Unasyn 3g IVPB, as per the ER. Although the patient is not aware of this, he does have a history of cholelithiasis, incidentally found on 2015: CTA of chest. The patient has intermittent elevated LFTs, which date back several years. He denies any GI symptoms whatsoever, and currently denies any abdominal pain, nausea, vomiting, hematemesis, odynophagia, dysphagia, early satiety, melena, diarrhea, constipation, obstipation, tenesmus, or rectal bleeding. He denies any jaundice, dark urine, light stools, pruritus, weight loss, change in appetite, or confusion. He denies any history of hepatitis, blood transfusions, IVDA, illicit drugs, tattoos, body piercings, or needle sticks, although he has been on benzodiazepines in the past. He claims he had C. difficile treated x 2, last about 5 years ago. He claims a colonoscopy at the [facility] 6 years ago was "normal" He denies any history of DTs, seizures, or withdrawal. He denies any new outpatient medications. He cannot give a complete list of his medications, but claims he is on "a blood pressure pill, Albuterol, Spiriva, & ECASA 81 mg daily." He is not on any NSAIDs or significant amounts of Tylenol. There is no family history of GI malignancy, GI disease, or inherited liver disease. *Liver function tests were mildly abnormal on admission (which is chronic), and imaging studies obtained for his pulmonary symptoms and his mildly chronically elevated asymptomatic LFTs, incidentally showed cholelithiasis with dilated CBD, prompting the GI consult. He had borderline leukocytosis on admission, which is actually stable compared to his previous labs. He tolerated solid food uneventfully in the ER. 03/26/2016: Admission labs- WBC 11.6 (76% gran/9 gran Ab), H/H 13.9/41.1, MCV 97.8, RDW 15.4, PLT 400, glucose 104, BUN/Cr 12/0.8, GFR > 60, Na 140, K 3.7, HCO3 25, AG 14, *Mg 1.1, Ca 9.3, albumin 4.1, globulin 2.6, TBil 2.0 (initially without fracs), DBil 0.9, alk phos 167, AST 71, ALT 64, troponin < .01, elevated D-dimer 623. 03/26/2016: EKG- ST @ 102, nl axis, borderline prolonged QT interval, unifocal PVCs, no acute ischemic changes. 03/26/2016: XRY-CHEST XRAY, PA AND LATERAL- No acute abnormality of the chest. Stable chronic changes. 03/26/2016: US ABDOMEN LIMITED (RUQ)- 1. Cholelithiasis with 1 cm stone in GB neck. No acute change of the gallbladder wall. Negative ultrasonic Hutchins sign. 2. Dilated CBD to a diameter of 1.7 cm without calcified stone within the visualized portions of the duct. Normal IHD. MRCP could be helpful for further assessment. 3. No liver lesion. No elodia-hepatic ascites. 03/26/2016: CT ANGIOGRAM OF THE CHEST WITH AND WITHOUT CONTRAST (CT PULMONARY ANGIOGRAM FOR PE)- 1. Adequate contrast opacification of the pulmonary arterial vasculature, without evidence of pulmonary embolism. 2. Unchanged architectural distortion within the bilateral upper lobes, notably within the right lung apex. 3. 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 4. Stable 5 mm pulmonary nodule within the lingula. This finding is entirely nonspecific. Recommend follow-up chest CT in one year to establish two-year stability, per Fleischner Society guidelines, as detailed below. *The cholelithiasis is chronic, as are his mildly elevated LFTs, which have fluctuated in the past. The patient was admitted primarily for a flare of COPD. He has no GI symptoms. The dilated CBD on ultrasound is noted. The patient currently has no signs or symptoms of cholangitis, nor cholecystitis. Has a benign abdominal exam, with a negative Hutchins sign. *As of 03/27/2016, the patient is hemodynamically stable and afebrile. His respiratory status is improving. He has no signs or symptoms of cholangitis. There are no fevers, chills, hypotension, or confusion. He denies any abdominal pain, nausea or vomiting. He tolerated solids po the evening of 03/26/2016. * He is currently NPO, awaiting MRCP to evaluate the CBD. He is not on antibiotics from a GI perspective, although he did get a dose of Unasyn in the ER on admission to cover his lungs. IV steroids were started per medicine for COPD flare. Repeat LFTs are pending. Serologies have been requested. I expect his WBC to rise on IV steroids. He has no signs withdrawal. 03/26/2016: *TIBC 315, ferritin 30.4 (no Fe sent?); ANDREAS- negative 1:40 (no AMA sent) 03/27/2016:*Hep A Ab, Hep Bs Ag, Hep B core Ab & Hep C Ab- all negative; HIV- negative. 03/27/2016: PT 12.2, INR 1.16 03/27/2016: *MR ABDOMEN WITHOUT CONTRAST/MRCP- 1. Abnormally dilated central intrahepatic bile ducts and extrahepatic bile ducts with a nonobstructing 0.8 cm stone seen within the distal common bile duct. Gallbladder with small intraluminal gallstones and layering sludge. No evidence of cholecystitis. 2. Diffuse hepatic steatosis. No focal liver mass. 3. Atrophic pancreas with mild 4 mm secondary dilatation of the pancreatic duct. No pancreatic mass. No pancreas divisum. 4. Small mass in right adrenal gland, most consistent with a benign finding, such as a small lipid rich adenoma versus nodular hypertrophy of the adrenal gland. 5. Chronic mild left-sided hydronephrosis and a few scattered subcentimeter sized renal cysts. *As of 03/28/2016, the patient is hemodynamically stable, except mildly tachycardic. He remains afebrile, off antibiotics (aside from the 1 dose of Unasyn given in the ER on admission). His white count has gone up (as expected) , on steroids for his COPD. He remains without signs or symptoms of cholangitis. His LFTs have essentially normalized. He is tolerating a low fat, 2g Na+ diet. He has no abdominal pain, nausea, vomiting, fevers or chills. His pulmonary symptoms are improving. The patient was seen by Dr. Streeter, of Pulmonary, 03/28/2016, & was cleared for ERCP, with the thoughts that if intubated for the procedure, he should be able to be extubated relatively quickly. In addition to the biliary findings on MRCP, the nonspecific adrenal & renal findings on MRCP were discussed with the patient, and [facility]. He empirically received Vit K 10 mg sc x 1 on 03/27/2016, in anticipation of possible papillotomy. CIWA persistently 0. SUGGEST: *2g Na+, low fat regular diet, then NPO after 11:59 p.m. on 03/28/2016, for ERCP on 03/29/2016, per Dr. Wilmer Garcia, who is covering GI this weekend, if needed. *Hold sc Heparin preop after the last dose on 03/28/2016. *Serial LFTs. * No need for antibiotics from a GI perspective (the patient was given Unasyn by the ER to cover his lungs). *If patient's clinical status changes and he develops signs of cholangitis (i.e.- hypotension, change in mentation, fever spikes, etc.), call GI [facility] & will have to arrange for emergent ERCP. The patient has been cleared by Pulmonary. Most likely, ERCP will require intubation , but if this is the case, a relatively quick extubation is anticipated. His LFTs have normalized and his leukocytosis is from IV steroids, prescribed for his COPD. Treatment of COPD, etc., as per medical team. 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 *Replete magnesium. *The fatty liver on imaging studies is most likely from the patient's alcohol intake. Other risk factors for fatty liver can include hypertension, hyperlipidemia, elevated glucose, obesity, etc. *Eventual Vitamin E 800 IU po daily for fatty liver. The above was discussed with the medical house staff. Further recommendations to follow, depending on clinical course. Problem List: 1. Cholelithiasis 2. Abnormal LFTs 3. Dilated cbd, acquired 4. Alcohol drinker 5. Fatty liver Subjective Subjective: 03/27/2016: *MR ABDOMEN WITHOUT CONTRAST/MRCP- 1. Abnormally dilated central intrahepatic bile ducts and extrahepatic bile ducts with a nonobstructing 0.8 cm stone seen within the distal common bile duct. Gallbladder with small intraluminal gallstones and layering sludge. No evidence of cholecystitis. 2. Diffuse hepatic steatosis. No focal liver mass. 3. Atrophic pancreas with mild 4 mm secondary dilatation of the pancreatic duct. No pancreatic mass. No pancreas divisum. 4. Small mass in right adrenal gland, most consistent with a benign finding, such as a small lipid rich adenoma versus nodular hypertrophy of the adrenal gland. 5. Chronic mild left-sided hydronephrosis and a few scattered subcentimeter sized renal cysts. *As of 03/28/2016, the patient is hemodynamically stable, except mildly tachycardic. He remains afebrile, off antibiotics (aside from the 1 dose of Unasyn given in the ER on admission). His white count has gone up (as expected) , on steroids for his COPD. He remains without signs or symptoms of cholangitis. His LFTs have essentially normalized. He is tolerating a low fat 2g Na+ diet. He has no abdominal pain, nausea, vomiting, fevers or chills. His pulmonary symptoms are improving. The patient was seen by Dr. Streeter, of Pulmonary, 03/28/2016, & was cleared for ERCP, with the thoughts that if intubated for the procedure, he should be able to be extubated relatively quickly. In addition to the biliary findings on MRCP, the nonspecific adrenal & renal findings on MRCP were discussed with the patient, and he was told to f/u with the [facility] regarding these, after discharge. He empirically received Vit K 10 mg sc x 1 on 03/27/2016, in anticipation of possible papillotomy. CIWA persistently 0. Review of Systems: Full 14 point ROS otherwise non-contributory, and as above. Review of Systems Constitutional: Reports: malaise, weakness- (improved). Denies: chills, diaphoresis, fever, unexplained weight loss. EENTM: Reports: hearing changes. Denies: blurred vision, double vision, visual changes, eye pain, eye drainage, eye tearing, icterus, ear discharge, ear pain, ear redness, nasal congestion, epistaxis, nasal pain, throat pain, throat swelling, mouth pain, tooth pain. Cardiovascular: Reports: peripheral edema (mild). Denies: chest pain, edema, orthopena, palpitations, syncope. Respiratory: Reports: cough (chronic- greenish sputum), short of breath (improving), sputum production (greenish), wheezing (resolved). Denies: hemoptysis, orthopnea, stridor. GI: Denies: abdominal pain, bloating, constipation, diarrhea, distention, bowel incontinence, melena, nausea, bloody stool, changes in stool, vomiting, steatorrhea. Genitourinary: Denies: discharge, dysuria, frequency, hematuria, hesitation, nocturia, pain, urgency. Musculoskeletal: Reports: joint pain (DJD, ORIF R hip). Denies: back pain, gout, joint swelling, muscle pain, muscle stiffness, neck pain. Skin: Denies: cysts, change in skin color, change in hair/nails, dryness, erythema, jaundice, lesions, lymphangitis, lumps, moles, rash. Neurological/Psychological: Reports: anxiety, depressed, emotional problems, weakness. Denies: ataxia, cognitive dysfunction, confusion, dementia, headache, numbness, paresthesia, pre-existing deficit, petit mal seizures, tingling, tremors, tonic- clonic seizures, unable to move lower ext, unable to move upper ext. Hematologic/Endocrine: Denies: bruising, bleeding, polyuria, polydipsia. Immunologic/Allergic: Denies: splenectomy, HIV/AIDS, lymphadenopathy. All Other Systems: Reviewed and Negative Objective Vital Signs and I&Os Vital Signs Date Time Temp Pulse Resp B/P Pulse O2 O2 Flow FiO2 Ox Delivery Rate 03/28 0857 114 120/60 03/28 0854 97.9 114 20 120/60 97 Room Air Room Air 03/28 0816 98 Nasal 2.0L Cannula 03/28 0000 97.9 115 148/100 03/28 0000 97 Room Air 03/27 2314 97.9 115 18 148/100 97 Room Air 03/27 2024 98 Nasal 2.0L Cannula 03/27 1626 97.7 122 18 117/70 97 Intake & Output 03/28 1600 03/28 0400 03/27 1600 03/27 0400 03/26 1600 03/26 0400 Intake Total 8955 951 0041 700 Output Total 900 990 Balance 180 480 115 700 Intake, IV 600 Intake, Oral 1080 480 505 700 Output, Urine 900 990 Patient 175 lb 160 lb Weight Physical Exam: Well-developed, chronically ill-appearing male, in no apparent distress. Sclera anicteric. Conjunctiva pink. Oropharynx clear. Poor dentition. No oral thrush. No aphthous ulcers. There is no adenopathy, thyromegaly, or JVD. No peripheral stigmata of inflammatory bowel disease or chronic liver disease on exam. No spiders on the anterior chest wall. No gynecomastia. No CVA tenderness. Lungs: decreased breath sounds at the upper lobes B/L, R > L, currently w/o wheezing. Prolonged expiratory phase. No rales or rhonchi. No definite egophony. Heart exam: regular rate rhythm, S1 and S2, with soft I/ systolic murmur & occasional ectopic beat. Old scar right anterior chest wall & mid-back. Abdominal exam: normal bowel sounds, soft belly, mildly distended, nontender, without guarding or rebound. No mass. No definite organomegaly. Liver approximately 15 cm by percussion. No palpable spleen tip. * Negative Hutchins sign. No fluid shift. No pulsatile mass. No epigastric bruit. Digital rectal exam: deferred by patient. Extremities: mild cyanosis, no clubbing, trace edema LE B/L. s/p R THR. No palpable cords. No rash. No palmar erythema. No Dupuytren's contractures. Distal pulses 1+ bilaterally. DTRs 2+ bilaterally. Alert and oriented x 3. No tremor. No asterixis. Current Medications: Current Medications Sig/Ade Start time Last Medication Dose Route Stop Time Status Admin Albuterol Sulfate 3 ML Q4-6 PRN PRN 03/26 2300 AC INH Albuterol Sulfate 2 PUF Q4-6 PRN PRN 03/26 2300 AC 03/28 INH 0903 Amlodipine Besylate 2.5 MG DAILY 03/27 1000 AC 03/28 PO 0857 Aspirin Buffered 81 MG DAILY 03/27 1000 AC 03/28 PO 0857 Folic Acid 1 MG DAILY 03/27 1033 AC 03/28 PO 0857 Heparin Sodium 5,000 UNIT Q8 03/27 1400 AC (Porcine) SC Methylprednisolone 40 MG Q12 03/27 2200 DC 03/28 IV 0855 Multivitamins 1 TAB DAILY 03/27 1033 AC 03/28 PO 0857 Patient Medication 1 ED .STK-MED ONE 03/28 1352 DC Teaching ED 03/28 1353 Prednisone 40 MG DAILY 03/29 1000 AC PO Thiamine HCl 100 MG DAILY 03/27 1033 AC 03/28 PO 0857 Tiotropium Lowry 1 PUF DAILY 03/27 1000 AC 03/28 INH 0857 Results Pertinent Lab Results: Laboratory Tests 03/28 03/27 03/27 0915 0910 0655 Chemistry Sodium (137 - 145 mmol/L) 140 Potassium (3.5 - 5.1 mmol/L) 3.8 Chloride (98 - 107 mmol/L) 99 Carbon Dioxide (22 - 30 mmol/L) 24 Anion Gap (5 - 16) 17 H BUN (9 - 20 mg/dL) 33 H Creatinine (0.7 - 1.2 mg/dL) 1.2 Estimated GFR (>60 ml/min) 59 L BUN/Creatinine Ratio (7 - 25 %) 27.5 H Total Bilirubin (0.2 - 1.3 mg/dL) 0.9 Direct Bilirubin (< 0.4 mg/dL) 0.5 H AST (17 - 59 U/L) 34 ALT (21 - 72 U/L) 46 Alkaline Phosphatase (< 127 U/L) 100 Total Protein (6.3 - 8.2 g/dL) 7.9 Albumin (3.5 - 5.0 g/dL) 4.3 Coagulation PT (9.4 - 12.5 SEC) 12.2 INR (0.90 - 1.17) 1.16 Hematology CBC w Diff NO MAN DIFF REQ WBC (4.8 - 10.8 /CUMM) 16.5 H RBC (4.70 - 6.10 /CUMM) 4.13 L Hgb (14.0 - 18.0 G/DL) 13.5 L Hct (42 - 52 %) 40.6 L MCV (80.0 - 94.0 FL) 98.2 H MCH (27.0 - 31.0 PG) 32.8 H RDW (11.5 - 14.5 %) 15.6 H Plt Count (130 - 400 /CUMM) 349 MPV (7.4 - 10.4 FL) 7.6 Gran % (42.2 - 75.2 %) 89.1 H Lymphocytes % (20.5 - 51.1 %) 6.6 L Monocytes % (1.7 - 9.3 %) 4.2 Eosinophils % (0 - 5 %) 0.1 Basophils % (0.0 - 2.0 %) 0 L Absolute Granulocytes (1.4 - 6.5 /CUMM) 14.7 H Absolute Lymphocytes (1.2 - 3.4 /CUMM) 1.1 L Absolute Monocytes (0.10 - 0.60 /CUMM) 0.7 H Absolute Eosinophils (0.0 - 0.7 /CUMM) 0 Absolute Basophils (0.0 - 0.2 /CUMM) 0 PUBS MCHC (33.0 - 37.0 G/DL) 33.4 Serology Hepatitis A IgM Ab (NONREACTIVE) NONREACTIVE Hep Bs Antigen (NONREACTIVE) NONREACTIVE Hep B Core IgM Ab Conf (NONREACTIVE) NONREACTIVE Hepatitis C Antibody (NONREACTIVE) NONREACTIVE HIV 1&2 Ab Western Blot (NONREACTIVE) NONREACTIVE 03/27 03/26 0655 1527 Chemistry Sodium (137 - 145 mmol/L) 137 140 Potassium (3.5 - 5.1 mmol/L) 4.1 3.7 Chloride (98 - 107 mmol/L) 99 102 Carbon Dioxide (22 - 30 mmol/L) 25 25 Anion Gap (5 - 16) 13 14 BUN (9 - 20 mg/dL) 13 12 Creatinine (0.7 - 1.2 mg/dL) 0.8 0.8 Estimated GFR (>60 ml/min) > 60 > 60 BUN/Creatinine Ratio (7 - 25 %) 16.3 15.0 Glucose (65 - 99 mg/dL) 104 H Calcium (8.4 - 10.2 mg/dL) 9.3 Magnesium (1.6 - 2.3 mg/dL) 1.1 L TIBC (261 - 462 ug/dL) 315 Ferritin (17.9 - 464 ng/mL) 30.4 Total Bilirubin (0.2 - 1.3 mg/dL) 1.3 2.0 H Direct Bilirubin (< 0.4 mg/dL) 0.5 H 0.9 H AST (17 - 59 U/L) 44 71 H ALT (21 - 72 U/L) 56 64 Alkaline Phosphatase (< 127 U/L) 143 H 167 H Troponin I (<0.11 ng/ml) < 0.01 < 0.01 Total Protein (6.3 - 8.2 g/dL) 8.0 7.7 Albumin (3.5 - 5.0 g/dL) 4.3 4.1 Globulin (1.9 - 4.2 gm/dL) 3.6 Albumin/Globulin Ratio (1.1 - 2.2 %) 1.1 Coagulation D-Dimer (70 - 232 ng/ml) 623 H Hematology CBC w Diff NO MAN DIFF REQ NO MAN DIFF REQ WBC (4.8 - 10.8 /CUMM) 6.5 11.6 H RBC (4.70 - 6.10 /CUMM) 4.00 L 4.20 L Hgb (14.0 - 18.0 G/DL) 13.2 L 13.9 L Hct (42 - 52 %) 39.3 L 41.1 L MCV (80.0 - 94.0 FL) 98.4 H 97.8 H MCH (27.0 - 31.0 PG) 33.0 H 33.2 H RDW (11.5 - 14.5 %) 15.9 H 15.4 H Plt Count (130 - 400 /CUMM) 344 400 MPV (7.4 - 10.4 FL) 7.1 L 6.5 L Gran % (42.2 - 75.2 %) 83.6 H 76.1 H Lymphocytes % (20.5 - 51.1 %) 10.4 L 10.8 L Monocytes % (1.7 - 9.3 %) 5.8 11.9 H Eosinophils % (0 - 5 %) 0.1 0.4 Basophils % (0.0 - 2.0 %) 0.1 0.8 Absolute Granulocytes (1.4 - 6.5 /CUMM) 5.4 8.8 H Absolute Lymphocytes (1.2 - 3.4 /CUMM) 0.7 L 1.3 Absolute Monocytes (0.10 - 0.60 /CUMM) 0.4 1.4 H Absolute Eosinophils (0.0 - 0.7 /CUMM) 0 0.1 Absolute Basophils (0.0 - 0.2 /CUMM) 0 0.1 PUBS MCHC (33.0 - 37.0 G/DL) 33.5 33.9 Serology A.phagocytophil DNA PCR Pending 03/26 1428 Immunology ANDREAS Titer ND Anti-Nuclear Antibody (NEG,1:40) NEG 1:40 IFA ASSAY Imaging/Other Studies: 03/26/2016: EKG- ST @ 102, nl axis, borderline prolonged QT interval, unifocal PVCs, no acute ischemic changes. 03/26/2016: XRY-CHEST XRAY, PA AND LATERAL- No acute abnormality of the chest. Stable chronic changes. 03/26/2016: US ABDOMEN LIMITED (RUQ)- 1. Cholelithiasis with 1 cm stone in GB neck. No acute change of the gallbladder wall. Negative ultrasonic Hutchins sign. 2. Dilated CBD to a diameter of 1.7 cm without calcified stone within the visualized portions of the duct. Normal IHD. MRCP could be helpful for further assessment. 3. No liver lesion. No elodia-hepatic ascites. 03/26/2016: CT ANGIOGRAM OF THE CHEST WITH AND WITHOUT CONTRAST (CT PULMONARY ANGIOGRAM FOR PE)- 1. Adequate contrast opacification of the pulmonary arterial vasculature, without evidence of pulmonary embolism. 2. Unchanged architectural distortion within the bilateral upper lobes, notably within the right lung apex. 3. 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 4. Stable 5 mm pulmonary nodule within the lingula. This finding is entirely nonspecific. Recommend follow-up chest CT in one year to establish two-year stability, per Fleischner Society guidelines, as detailed below. 03/27/2016: *MR ABDOMEN WITHOUT CONTRAST/MRCP- 1. Abnormally dilated central intrahepatic bile ducts and extrahepatic bile ducts with a nonobstructing 0.8 cm stone seen within the distal common bile duct. Gallbladder with small intraluminal gallstones and layering sludge. No evidence of cholecystitis. 2. Diffuse hepatic steatosis. No focal liver mass. 3. Atrophic pancreas with mild 4 mm secondary dilatation of the pancreatic duct. No pancreatic mass. No pancreas divisum. 4. Small mass in right adrenal gland, most consistent with a benign finding, such as a small lipid rich adenoma versus nodular hypertrophy of the adrenal gland. 5. Chronic mild left-sided hydronephrosis and a few scattered subcentimeter sized renal cysts.
[2016-03-28 15:59] VITALS: BP 132/92
[2016-03-29 00:14] VITALS: BP 130/88
--- NOTE | 2016-03-29 07:41 | PN- Housestaff ---
SABINA GASCA 03/29/16 0740: Subjective Follow-up For: copd exacerbation dialated cbd Subjective: Patient seen and examined. Feels well. No new complain. WIll go for ERCP today, might need intubation. Post ercp if stable, can be discharged the next day. Eating well, afebrile, no abdominal pain. Review of Systems Constitutional: Reports: see HPI. Objective Last 24 Hrs of Vital Signs/I&O Vital Signs Date Time Temp Pulse Resp B/P Pulse O2 O2 Flow FiO2 Ox Delivery Rate 03/29 1205 96 Room Air 03/29 1002 85 136/89 03/29 0824 98.4 85 16 136/89 98 Room Air 03/29 0014 98.1 102 20 130/88 96 03/28 2258 95 Room Air Room Air Intake & Output 03/29 1600 03/29 0800 03/29 0000 Intake Total 730 Output Total 650 350 Balance -650 380 Intake, IV 130 Intake, Oral 600 Output, Urine 650 350 Physical Exam General Appearance: Alert, Oriented X3, Cooperative, No Acute Distress Skin: No Rashes, No Breakdown HEENT: Atraumatic Neck: Supple Lymphatic: Cervical nl Cardiovascular: Regular Rate, Normal S1, Normal S2 Lungs: Clear to Auscultation, Normal Air Movement Abdomen: Normal Bowel Sounds, Soft, No Tenderness Neurological: Normal Speech, Normal Tone Current Medications: Current Medications Sig/Ade Start time Last Medication Dose Route Stop Time Status Admin Albuterol Sulfate 3 ML Q4-6 PRN PRN 03/26 2300 AC INH Albuterol Sulfate 2 PUF Q4-6 PRN PRN 03/26 2300 AC 03/28 INH 0903 Amlodipine Besylate 2.5 MG DAILY 03/27 1000 AC 03/29 PO 1002 Aspirin Buffered 81 MG DAILY 03/27 1000 AC 03/28 PO 0857 Fluticasone 2 PUF BID 03/28 1443 AC 03/29 Propionate INH 1003 Folic Acid 1 MG DAILY 03/27 1033 AC 03/29 PO 1002 Glucagon 1 MG .STK-MED ONE 03/29 1541 DC IV 03/29 1542 Heparin Sodium 5,000 UNIT Q8 03/27 1400 AC (Porcine) SC Iopamidol 1 ML .STK-MED ONE 03/29 1541 DC IV 03/29 1542 Lidocaine 2 IZABELA .STK-MED ONE 03/29 1541 DC TOP 03/29 1542 Magnesium Sulfate 1 GM ONCE ONE 03/28 1445 LA 03/28 Dextrose/Water 100 ML IV 03/28 1844 1635 Multivitamins 1 TAB DAILY 03/27 1033 AC 03/29 PO 1002 Prednisone 40 MG DAILY 03/29 1000 DC 03/29 PO 1002 Thiamine HCl 100 MG DAILY 03/27 1033 AC 03/29 PO 1002 Last 24 Hrs of Lab/Figueroa Results Last 24 Hrs of Labs/Mics: Laboratory Tests 03/29/16 0630: Anion Gap 12, Estimated GFR > 60, BUN/Creatinine Ratio 33.6 H, Magnesium 1.7, Total Bilirubin 0.7, Direct Bilirubin 0.4, AST 34, ALT 43, Alkaline Phosphatase 93, Total Protein 7.8, Albumin 4.2, CBC w Diff NO MAN DIFF REQ, RBC 4.07 L, MCV 98.5 H, MCH 32.8 H, RDW 15.7 H, MPV 7.6, Gran % 76.1 H, Lymphocytes % 12.8 L, Monocytes % 11.0 H, Eosinophils % 0, Basophils % 0.1, Absolute Granulocytes 14.7 H, Absolute Lymphocytes 2.5, Absolute Monocytes 2.1 H, Absolute Eosinophils 0, Absolute Basophils 0, PUBS MCHC 33.3 03/29/16 0600: Magnesium Cancelled Assessment/Plan Assessment: Patient is 75-year-old male with past medical history of COPD on as needed 2L O2 , HTN, Afib not on AC, TB s/p RUL resection, who is followed at the [facility], last admitted for COPDE (Mar 2015) is here for evaluation of weakness, lethargy, [place] and cough productive of yellow phlegm. He reports drinking 1 pint of vodka/ week , cannot recollect his last drink. He denies fever/chills, nausea, vomiting, abdominal pain or diarrhea. Vitals were stable on admission except for tachycardia with a heart rate of 100 His Labs were significant for leukocytosis of WBC 11.6, macrocytic anemia, Mag 1.1, T. Bili 2.0, D. Bili 0.9, AST 71, ALT 64, trop neg, EKG showed: Sinus tachycardia, PVC's, Qtc 490. Chest x-ray negative for acute pulmonary pathology Ultrasound abdomen was significant for cholelithiasis and dilated common bile duct of 1.7 without a stone visualized Problem list/assessment and plan 1. Acute on chronic hypoxic respiratory failure Patient has a history of COPD, his current symptoms could be due to mild COPD exacerbation. No pneumonia visualized on chest x-ray Will continue TRC nebs as needed Sputum culture is negative Patient was started on IV steroids in ER and was witched to po later. Steroids d /cd per pulmonary now. will keep off antibiotics for now and continue to monitor 2. Cholelithiasis, with dilated CBD on ultrasound Patient had an MRCP done yesterday. He has 0.8 cm non obstructing stone. Plan is for ERCP on friday by Dr. Leoms at 2 pm Patient remains asymptomatic, no fever/chills/abdominal pain Hepatitis panel is negative GI wants to keep patient off of antibiotics for now Patient will be observed on telemetry post ERCP for one day and if GI thinks patient is stable, he might be discharged. 3. Alcohol dependence Patient has a history of alcohol abuse, according to him his last drink was one month ago. We will continue to monitor with CIWA. it has been negative so far. DVT ppx Lovenox. Full code. Problem List: 1. Dilated cbd, acquired 2. COPD exacerbation Pain Ratin Pain Location: none Pain Goal: Pain 4 or less Pain Plan: tylenol prn for pain Tomorrow's Labs & Rationales: cbc bep lft KENJI KENT MD 03/29/16 1137: Attending MD Review Statement Attending Statement Attending MD Statement: examined this patient, discuss w/resident/PA/[employer], agreed w/resident/PA/[employer], reviewed EMR data (avail) Attending Assessment/Plan: 75M PMH COPD on PRN home oxygen, HTN, alcohol use admitted with shortness of breath, cough, yellow sputum, elevated LFTs, found incidentally to have dilated CBD to 1.7cm. No evidence of cholangitis at this time. No evidence of pneumonia on imaging. 1. Acute exacerbation of COPD 2. Acute bronchitis 3. Dilated common bile duct 4. Elevated LFTs Plan - Continue on general medicine - NPO for ERCP later today, may restart diet after - Follow GI and pulmonary recommendations - Discontinue steroids per pulmonology - TRC/nebulizer treatments - No antibiotics at this time - Continue home medications - DVT PPx - If tolerates procedure well and LFTs are normal tomorrow, can be discharged home tomorrow
[2016-03-29 08:13] LABS: ABSOLUTE BASOPHIL COUNT 0 /CUMM (0.0-0.2); ABSOLUTE EOSINOPHIL COUNT 0 /CUMM (0.0-0.7); ABSOLUTE GRANULOCYTE CT 14.7 /CUMM (1.4-6.5); ABSOLUTE LYMPH COUNT 2.5 /CUMM (1.2-3.4); ABSOLUTE MONOCYTE COUNT 2.1 /CUMM (0.10-0.60); BASOPHIL % 0.1 % (0.0-2.0); EOSINOPHIL % 0 % (0-5); GRANULOCYTE % 76.1 % (42.2-75.2); HEMATOCRIT 40.1 % (42-52); MEAN CORPUSCULAR HGB 32.8 PG (27.0-31.0); MEAN CORPUSCULAR HGB CONC 33.3 G/DL (33.0-37.0); MEAN CORPUSCULAR VOLUME 98.5 FL (80.0-94.0); MEAN PLATELET VOLUME 7.6 FL (7.4-10.4); PLATELET COUNT 345 /CUMM (130-400); RBC DISTRIBUTION WIDTH 15.7 % (11.5-14.5); RED BLOOD CELL CT 4.07 /CUMM (4.70-6.10); WHITE BLOOD CELL COUNT 19.3 /CUMM (4.8-10.8)
[2016-03-29 08:24] VITALS: BP 136/89
--- NOTE | 2016-03-29 08:25 | PN- Gastroenterology ---
Assessment/Plan Assessment/Recommendations: 75 y/o male, poor historian, with majority of records at [facility] & [facility]. He is followed for primary care by Piedad Cortez APRN, at the [facility]. The patient is an ex-30-pk yr cigarette smoker, stopping in 1989, with COPD (has home O2, but does not use it regularly), remotely on Prednisone, with past history of leukocytosis related to this. He also admits to moderate EtOH, approximately 1 pint vodka/ week. He claims he has not had alcohol for over 1 month. He has a history of PAF (not on A/C therapy), HTN/non-DM, with RUL resection for TB at [facility] > 10 years ago, and ORIF right hip fracture at the [facility] > 10 years ago. He also has Vit D deficiency, anxiety & depression, and was last admitted to [facility] 04/07/15 - 04/12/15 for a flare of COPD, treated with IV Solu-Medrol, Symbicort, Spiriva, and Albuterol, with oxygen as needed. He does not see a patroller or a aerial lineman. The patient presented to the [place] ER 03/26/2016 at 2:15 PM, complaining of shortness of breath, wheezing, and cough productive of greenish sputum, without any pleuritic pain or chest pain. He claimed he was brought here because "there were no beds at the [facility]." There was no hemoptysis. He denied any fevers, chills, or symptoms of UTI. He felt weak and rundown. He was borderline tachycardic with borderline HTN and afebrile with O2 sat 2L nc- 100% upon presentation. Patient was treated with Albuterol, Atrovent, Solu-Medrol 125 mg IV, Mg, O2 & Unasyn 3g IVPB, as per the ER. Although the patient is not aware of this, he does have a history of cholelithiasis, incidentally found on 2015: CTA of chest. The patient has intermittent elevated LFTs, which date back several years. He denies any GI symptoms whatsoever, and currently denies any abdominal pain, nausea, vomiting, hematemesis, odynophagia, dysphagia, early satiety, melena, diarrhea, constipation, obstipation, tenesmus, or rectal bleeding. He denies any jaundice, dark urine, light stools, pruritus, weight loss, change in appetite, or confusion. He denies any history of hepatitis, blood transfusions, IVDA, illicit drugs, tattoos, body piercings, or needle sticks, although he has been on benzodiazepines in the past. He claims he had C. difficile treated x 2, last about 5 years ago. He claims a colonoscopy at the [facility] 6 years ago was "normal" He denies any history of DTs, seizures, or withdrawal. He denies any new outpatient medications. He cannot give a complete list of his medications, but claims he is on "a blood pressure pill, Albuterol, Spiriva, & ECASA 81 mg daily." He is not on any NSAIDs or significant amounts of Tylenol. There is no family history of GI malignancy, GI disease, or inherited liver disease. *Liver function tests were mildly abnormal on admission (which is chronic), and imaging studies obtained for his pulmonary symptoms and his mildly chronically elevated asymptomatic LFTs, incidentally showed cholelithiasis with dilated CBD, prompting the GI consult. He had borderline leukocytosis on admission, which is actually stable compared to his previous labs. He tolerated solid food uneventfully in the ER. 03/26/2016: Admission labs- WBC 11.6 (76% gran/9 gran Ab), H/H 13.9/41.1, MCV 97.8, RDW 15.4, PLT 400, glucose 104, BUN/Cr 12/0.8, GFR > 60, Na 140, K 3.7, HCO3 25, AG 14, *Mg 1.1, Ca 9.3, albumin 4.1, globulin 2.6, TBil 2.0 (initially without fracs), DBil 0.9, alk phos 167, AST 71, ALT 64, troponin < .01, elevated D-dimer 623. 03/26/2016: EKG- ST @ 102, nl axis, borderline prolonged QT interval, unifocal PVCs, no acute ischemic changes. 03/26/2016: XRY-CHEST XRAY, PA AND LATERAL- No acute abnormality of the chest. Stable chronic changes. 03/26/2016: US ABDOMEN LIMITED (RUQ)- 1. Cholelithiasis with 1 cm stone in GB neck. No acute change of the gallbladder wall. Negative ultrasonic Hutchins sign. 2. Dilated CBD to a diameter of 1.7 cm without calcified stone within the visualized portions of the duct. Normal IHD. MRCP could be helpful for further assessment. 3. No liver lesion. No elodia-hepatic ascites. 03/26/2016: CT ANGIOGRAM OF THE CHEST WITH AND WITHOUT CONTRAST (CT PULMONARY ANGIOGRAM FOR PE)- 1. Adequate contrast opacification of the pulmonary arterial vasculature, without evidence of pulmonary embolism. 2. Unchanged architectural distortion within the bilateral upper lobes, notably within the right lung apex. 3. 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 4. Stable 5 mm pulmonary nodule within the lingula. This finding is entirely nonspecific. Recommend follow-up chest CT in one year to establish two-year stability, per Fleischner Society guidelines, as detailed below. *The cholelithiasis is chronic, as are his mildly elevated LFTs, which have fluctuated in the past. The patient was admitted primarily for a flare of COPD. He has no GI symptoms. The dilated CBD on ultrasound is noted. The patient currently has no signs or symptoms of cholangitis, nor cholecystitis. Has a benign abdominal exam, with a negative Hutchins sign. *As of 03/27/2016, the patient is hemodynamically stable and afebrile. His respiratory status is improving. He has no signs or symptoms of cholangitis. There are no fevers, chills, hypotension, or confusion. He denies any abdominal pain, nausea or vomiting. He tolerated solids po the evening of 03/26/2016. * He is currently NPO, awaiting MRCP to evaluate the CBD. He is not on antibiotics from a GI perspective, although he did get a dose of Unasyn in the ER on admission to cover his lungs. IV steroids were started per medicine for COPD flare. Repeat LFTs are pending. Serologies have been requested. I expect his WBC to rise on IV steroids. He has no signs withdrawal. 03/26/2016: *TIBC 315, ferritin 30.4 (no Fe sent?); ANDREAS- negative 1:40 (no AMA sent) 03/27/2016:*Hep A Ab, Hep Bs Ag, Hep B core Ab & Hep C Ab- all negative; HIV- negative. 03/27/2016: PT 12.2, INR 1.16 03/27/2016: *MR ABDOMEN WITHOUT CONTRAST/MRCP- 1. Abnormally dilated central intrahepatic bile ducts and extrahepatic bile ducts with a nonobstructing 0.8 cm stone seen within the distal common bile duct. Gallbladder with small intraluminal gallstones and layering sludge. No evidence of cholecystitis. 2. Diffuse hepatic steatosis. No focal liver mass. 3. Atrophic pancreas with mild 4 mm secondary dilatation of the pancreatic duct. No pancreatic mass. No pancreas divisum. 4. Small mass in right adrenal gland, most consistent with a benign finding, such as a small lipid rich adenoma versus nodular hypertrophy of the adrenal gland. 5. Chronic mild left-sided hydronephrosis and a few scattered subcentimeter sized renal cysts. *As of 03/28/2016, the patient is hemodynamically stable, except mildly tachycardic. He remains afebrile, off antibiotics (aside from the 1 dose of Unasyn given in the ER on admission). His white count has gone up (as expected) , on steroids for his COPD. He remains without signs or symptoms of cholangitis. His LFTs have essentially normalized. He is tolerating a low fat, 2g Na+ diet. He has no abdominal pain, nausea, vomiting, fevers or chills. His pulmonary symptoms are improving. The patient was seen by Dr. Streeter, of Pulmonary, 03/28/2016, & was cleared for ERCP, with the thoughts that if intubated for the procedure, he should be able to be extubated relatively quickly. In addition to the biliary findings on MRCP, the nonspecific adrenal & renal findings on MRCP were discussed with the patient, and [facility]. He empirically received Vit K 10 mg sc x 1 on 03/27/2016, in anticipation of possible papillotomy. CIWA persistently 0. *As of 03/29/2016, the patient remains without signs or symptoms of cholangitis. He is hemodynamically stable (borderline HTN) & afebrile. O2 sat- 98% RA. He tolerated a 2g Na+ low fat diet yesterday, & is currently NPO for ERCP later today, for what appears to be incidental choledocholithiasis. He remains off antibiotics. His respiratory status is improved compared to admission. His LFTs are normal. The leukocytosis is undoubtedly from steroid therapy for his COPD. CIWA remain 0. SUGGEST: *NPO for ERCP later today, on 03/29/2016, per Dr. Wilmer Garcia. *Hold sc Heparin preop after the last dose on 03/28/2016. *Serial LFTs. *No need for antibiotics from a GI perspective (the patient was given Unasyn by the ER to cover his lungs). *If patient's clinical status changes and he develops signs of cholangitis (i.e.- hypotension, change in mentation, fever spikes, etc.), call GI [facility] & will have to arrange for emergent ERCP. The patient has been cleared by Pulmonary. Most likely, ERCP will require intubation, but if this is the case, a relatively quick extubation is anticipated. His LFTs have normalized and his leukocytosis is from IV steroids, prescribed for his COPD. Treatment of COPD, etc., as per medical team. May D/C CIWA protocol & DT precautions at this point. Ativan as needed, thiamine, folate, MVI. *Replete magnesium (done). *The fatty liver on imaging studies is most likely from the patient's alcohol intake. Other risk factors for fatty liver can include hypertension, hyperlipidemia, elevated glucose, obesity, etc. *Eventual Vitamin E 800 IU po daily for fatty liver. The above was previously discussed with the medical house staff. *Post-ERCP recommendations & care per Dr. Wilmer Garcia, who is on for GI this weekend, however if the ERCP is stable, most likely will be able to be discharged from a GI perspective. Will defer to hospitalist service regarding further inpatient care for COPD, which seems to be improved. Problem List: 1. Cholelithiasis 2. Abnormal LFTs 3. Dilated cbd, acquired 4. Alcohol drinker 5. Fatty liver Subjective Subjective: *As of 03/29/2016, the patient remains without signs or symptoms of cholangitis. He is hemodynamically stable (borderline HTN) & afebrile. O2 sat- 98% RA. He tolerated a 2g Na+ low fat diet yesterday, & is currently NPO for ERCP later today for what appears to be incidental choledocholithiasis. He remains off antibiotics. His respiratory status is improved compared to admission. His LFTs are normal. The leukocytosis is undoubtedly from steroid therapy for his COPD. CIWA remain 0. Review of Systems: Full 14 point ROS otherwise non-contributory, and as above. Review of Systems Constitutional: Reports: malaise, weakness- (improved). Denies: chills, diaphoresis, fever, unexplained weight loss. EENTM: Reports: hearing changes. Denies: blurred vision, double vision, visual changes, eye pain, eye drainage, eye tearing, icterus, ear discharge, ear pain, ear redness, nasal congestion, epistaxis, nasal pain, throat pain, throat swelling, mouth pain, tooth pain. Cardiovascular: Reports: peripheral edema (mild). Denies: chest pain, edema, orthopena, palpitations, syncope. Respiratory: Reports: cough (chronic- greenish sputum; mild), short of breath (improving), sputum production (greenish), wheezing (resolved). Denies: hemoptysis, orthopnea, stridor. GI: Denies: abdominal pain, bloating, constipation, diarrhea, distention, bowel incontinence, melena, nausea, bloody stool, changes in stool, vomiting, steatorrhea. Genitourinary: Denies: discharge, dysuria, frequency, hematuria, hesitation, nocturia, pain, urgency. Musculoskeletal: Reports: joint pain (DJD, ORIF R hip). Denies: back pain, gout, joint swelling, muscle pain, muscle stiffness, neck pain. Skin: Denies: cysts, change in skin color, change in hair/nails, dryness, erythema, jaundice, lesions, lymphangitis, lumps, moles, rash. Neurological/Psychological: Reports: anxiety, depressed, emotional problems, weakness. Denies: ataxia, cognitive dysfunction, confusion, dementia, headache, numbness, paresthesia, pre-existing deficit, petit mal seizures, tingling, tremors, tonic- clonic seizures, unable to move lower ext, unable to move upper ext. Hematologic/Endocrine: Denies: bruising, bleeding, polyuria, polydipsia. Immunologic/Allergic: Denies: splenectomy, HIV/AIDS, lymphadenopathy. All Other Systems: Reviewed and Negative Objective Vital Signs and I&Os Vital Signs Date Time Temp Pulse Resp B/P Pulse O2 O2 Flow FiO2 Ox Delivery Rate 03/29 0824 98.4 85 16 136/89 98 Room Air 03/29 0014 98.1 102 20 130/88 96 03/28 2258 95 Room Air Room Air 03/28 1600 Room Air 03/28 1559 98.0 94 18 132/92 96 03/28 0857 114 120/60 03/28 0854 97.9 114 20 12060 97 Room Air Room Air Intake & Output 03/29 1600 03/29 0400 03/28 1600 03/28 0400 03/27 1600 03/27 0400 Intake Total 730 7958 631 4482 700 Output Total 650 350 990 Balance -962 104 0205 480 115 700 Intake, IV 130 600 Intake, Oral 600 1320 480 505 700 Number 1 Bowel Movements Output, Urine 650 350 990 Patient 175 lb Weight Physical Exam: Well-developed, chronically ill-appearing male, in no apparent distress. Sclera anicteric. Conjunctiva pink. Oropharynx clear. Poor dentition. No oral thrush. No aphthous ulcers. There is no adenopathy, thyromegaly, or JVD. No peripheral stigmata of inflammatory bowel disease or chronic liver disease on exam. No spiders on the anterior chest wall. No gynecomastia. No CVA tenderness. Lungs: decreased breath sounds at the upper lobes B/L, R > L, currently w/o wheezing. Prolonged expiratory phase. No rales or rhonchi. No egophony. Heart exam: regular rate rhythm, S1 and S2, with soft I/ systolic murmur & occasional ectopic beat. Old scar right anterior chest wall & mid-back. Abdominal exam: normal bowel sounds, soft belly, minimally distended, nontender, without guarding or rebound. No mass. No definite organomegaly. Liver approximately 15 cm by percussion. No palpable spleen tip. * Negative Hutchins sign. No fluid shift. No pulsatile mass. No epigastric bruit. Digital rectal exam: deferred by patient. Extremities: mild cyanosis, no clubbing, trace edema LE B/L. s/p R THR. No palpable cords. No rash. No palmar erythema. No Dupuytren's contractures. Distal pulses 1+ bilaterally. DTRs 2+ bilaterally. Alert and oriented x 3. No tremor. No asterixis. Current Medications: Current Medications Sig/Ade Start time Last Medication Dose Route Stop Time Status Admin Albuterol Sulfate 3 ML Q4-6 PRN PRN 03/26 2300 AC INH Albuterol Sulfate 2 PUF Q4-6 PRN PRN 03/26 2300 AC 03/28 INH 0903 Amlodipine Besylate 2.5 MG DAILY 03/27 1000 AC 03/28 PO 0857 Aspirin Buffered 81 MG DAILY 03/27 1000 AC 03/28 PO 0857 Fluticasone 2 PUF BID 03/28 1443 AC 03/28 Propionate INH 2104 Folic Acid 1 MG DAILY 03/27 1033 AC 03/28 PO 0857 Heparin Sodium 5,000 UNIT Q8 03/27 1400 AC (Porcine) SC Magnesium Sulfate 1 GM ONCE ONE 03/28 1445 DC 03/28 Dextrose/Water 100 ML IV 03/28 1844 1635 Methylprednisolone 40 MG Q12 03/27 2200 DC 03/28 IV 0855 Multivitamins 1 TAB DAILY 03/27 1033 AC 03/28 PO 0857 Patient Medication 1 ED .STK-MED ONE 03/28 1352 DC Teaching ED 03/28 1353 Prednisone 40 MG DAILY 03/29 1000 AC PO Thiamine HCl 100 MG DAILY 03/27 1033 AC 03/28 PO 0857 Tiotropium [place] 1 PUF DAILY 03/27 1000 DC 03/28 INH 0857 Results Pertinent Lab Results: Laboratory Tests 03/29 03/29 0630 0600 Chemistry Sodium (137 - 145 mmol/L) 139 Potassium (3.5 - 5.1 mmol/L) 4.0 Chloride (98 - 107 mmol/L) 103 Carbon Dioxide (22 - 30 mmol/L) 25 Anion Gap (5 - 16) 12 BUN (9 - 20 mg/dL) 37 H Creatinine (0.7 - 1.2 mg/dL) 1.1 Estimated GFR (>60 ml/min) > 60 BUN/Creatinine Ratio (7 - 25 %) 33.6 H Magnesium (1.6 - 2.3 mg/dL) 1.7 Cancelled Total Bilirubin (0.2 - 1.3 mg/dL) 0.7 Direct Bilirubin (< 0.4 mg/dL) 0.4 AST (17 - 59 U/L) 34 ALT (21 - 72 U/L) 43 Alkaline Phosphatase (< 127 U/L) 93 Total Protein (6.3 - 8.2 g/dL) 7.8 Albumin (3.5 - 5.0 g/dL) 4.2 Hematology CBC w Diff NO MAN DIFF REQ WBC (4.8 - 10.8 /CUMM) 19.3 H RBC (4.70 - 6.10 /CUMM) 4.07 L Hgb (14.0 - 18.0 G/DL) 13.3 L Hct (42 - 52 %) 40.1 L MCV (80.0 - 94.0 FL) 98.5 H MCH (27.0 - 31.0 PG) 32.8 H RDW (11.5 - 14.5 %) 15.7 H Plt Count (130 - 400 /CUMM) 345 MPV (7.4 - 10.4 FL) 7.6 Gran % (42.2 - 75.2 %) 76.1 H Lymphocytes % (20.5 - 51.1 %) 12.8 L Monocytes % (1.7 - 9.3 %) 11.0 H Eosinophils % (0 - 5 %) 0 Basophils % (0.0 - 2.0 %) 0.1 Absolute Granulocytes (1.4 - 6.5 /CUMM) 14.7 H Absolute Lymphocytes (1.2 - 3.4 /CUMM) 2.5 Absolute Monocytes (0.10 - 0.60 /CUMM) 2.1 H Absolute Eosinophils (0.0 - 0.7 /CUMM) 0 Absolute Basophils (0.0 - 0.2 /CUMM) 0 PUBS MCHC (33.0 - 37.0 G/DL) 33.3 03/28 02/08 03/27 0915 0910 0655 Chemistry Sodium (137 - 145 mmol/L) 140 Potassium (3.5 - 5.1 mmol/L) 3.8 Chloride (98 - 107 mmol/L) 99 Carbon Dioxide (22 - 30 mmol/L) 24 Anion Gap (5 - 16) 17 H BUN (9 - 20 mg/dL) 33 H Creatinine (0.7 - 1.2 mg/dL) 1.2 Estimated GFR (>60 ml/min) 59 L BUN/Creatinine Ratio (7 - 25 %) 27.5 H Total Bilirubin (0.2 - 1.3 mg/dL) 0.9 Direct Bilirubin (< 0.4 mg/dL) 0.5 H AST (17 - 59 U/L) 34 ALT (21 - 72 U/L) 46 Alkaline Phosphatase (< 127 U/L) 100 Total Protein (6.3 - 8.2 g/dL) 7.9 Albumin (3.5 - 5.0 g/dL) 4.3 Coagulation PT (9.4 - 12.5 SEC) 12.2 INR (0.90 - 1.17) 1.16 Hematology CBC w Diff NO MAN DIFF REQ WBC (4.8 - 10.8 /CUMM) 16.5 H RBC (4.70 - 6.10 /CUMM) 4.13 L Hgb (14.0 - 18.0 G/DL) 13.5 L Hct (42 - 52 %) 40.6 L MCV (80.0 - 94.0 FL) 98.2 H MCH (27.0 - 31.0 PG) 32.8 H RDW (11.5 - 14.5 %) 15.6 H Plt Count (130 - 400 /CUMM) 349 MPV (7.4 - 10.4 FL) 7.6 Gran % (42.2 - 75.2 %) 89.1 H Lymphocytes % (20.5 - 51.1 %) 6.6 L Monocytes % (1.7 - 9.3 %) 4.2 Eosinophils % (0 - 5 %) 0.1 Basophils % (0.0 - 2.0 %) 0 L Absolute Granulocytes (1.4 - 6.5 /CUMM) 14.7 H Absolute Lymphocytes (1.2 - 3.4 /CUMM) 1.1 L Absolute Monocytes (0.10 - 0.60 /CUMM) 0.7 H Absolute Eosinophils (0.0 - 0.7 /CUMM) 0 Absolute Basophils (0.0 - 0.2 /CUMM) 0 PUBS MCHC (33.0 - 37.0 G/DL) 33.4 Serology Hepatitis A IgM Ab (NONREACTIVE) NONREACTIVE Hep Bs Antigen (NONREACTIVE) NONREACTIVE Hep B Core IgM Ab Conf (NONREACTIVE) NONREACTIVE Hepatitis C Antibody (NONREACTIVE) NONREACTIVE HIV 1&2 Ab Western Blot (NONREACTIVE) NONREACTIVE 03/27 03/26 0655 1527 Chemistry Sodium (137 - 145 mmol/L) 137 140 Potassium (3.5 - 5.1 mmol/L) 4.1 3.7 Chloride (98 - 107 mmol/L) 99 102 Carbon Dioxide (22 - 30 mmol/L) 25 25 Anion Gap (5 - 16) 13 14 BUN (9 - 20 mg/dL) 13 12 Creatinine (0.7 - 1.2 mg/dL) 0.8 0.8 Estimated GFR (>60 ml/min) > 60 > 60 BUN/Creatinine Ratio (7 - 25 %) 16.3 15.0 Glucose (65 - 99 mg/dL) 104 H Calcium (8.4 - 10.2 mg/dL) 9.3 Magnesium (1.6 - 2.3 mg/dL) 1.1 L TIBC (261 - 462 ug/dL) 315 Ferritin (17.9 - 464 ng/mL) 30.4 Total Bilirubin (0.2 - 1.3 mg/dL) 1.3 2.0 H Direct Bilirubin (< 0.4 mg/dL) 0.5 H 0.9 H AST (17 - 59 U/L) 44 71 H ALT (21 - 72 U/L) 56 64 Alkaline Phosphatase (< 127 U/L) 143 H 167 H Troponin I (<0.11 ng/ml) < 0.01 < 0.01 Total Protein (6.3 - 8.2 g/dL) 8.0 7.7 Albumin (3.5 - 5.0 g/dL) 4.3 4.1 Globulin (1.9 - 4.2 gm/dL) 3.6 Albumin/Globulin Ratio (1.1 - 2.2 %) 1.1 Coagulation D-Dimer (70 - 232 ng/ml) 623 H Hematology CBC w Diff NO MAN DIFF REQ NO MAN DIFF REQ WBC (4.8 - 10.8 /CUMM) 6.5 11.6 H RBC (4.70 - 6.10 /CUMM) 4.00 L 4.20 L Hgb (14.0 - 18.0 G/DL) 13.2 L 13.9 L Hct (42 - 52 %) 39.3 L 41.1 L MCV (80.0 - 94.0 FL) 98.4 H 97.8 H MCH (27.0 - 31.0 PG) 33.0 H 33.2 H RDW (11.5 - 14.5 %) 15.9 H 15.4 H Plt Count (130 - 400 /CUMM) 344 400 MPV (7.4 - 10.4 FL) 7.1 L 6.5 L Gran % (42.2 - 75.2 %) 83.6 H 76.1 H Lymphocytes % (20.5 - 51.1 %) 10.4 L 10.8 L Monocytes % (1.7 - 9.3 %) 5.8 11.9 H Eosinophils % (0 - 5 %) 0.1 0.4 Basophils % (0.0 - 2.0 %) 0.1 0.8 Absolute Granulocytes (1.4 - 6.5 /CUMM) 5.4 8.8 H Absolute Lymphocytes (1.2 - 3.4 /CUMM) 0.7 L 1.3 Absolute Monocytes (0.10 - 0.60 /CUMM) 0.4 1.4 H Absolute Eosinophils (0.0 - 0.7 /CUMM) 0 0.1 Absolute Basophils (0.0 - 0.2 /CUMM) 0 0.1 PUBS MCHC (33.0 - 37.0 G/DL) 33.5 33.9 Serology A.phagocytophil DNA PCR Pending 03/26 1428 Immunology ANDREAS Titer ND Anti-Nuclear Antibody (NEG,1:40) NEG 1:40 IFA ASSAY Imaging/Other Studies: 03/26/2016: EKG- ST @ 102, nl axis, borderline prolonged QT interval, unifocal PVCs, no acute ischemic changes. 03/26/2016: XRY-CHEST XRAY, [place] AND LATERAL- No acute abnormality of the chest. Stable chronic changes. 03/26/2016: US ABDOMEN LIMITED (RUQ)- 1. Cholelithiasis with 1 cm stone in GB neck. No acute change of the gallbladder wall. Negative ultrasonic Hutchins sign. 2. Dilated CBD to a diameter of 1.7 cm without calcified stone within the visualized portions of the duct. Normal IHD. MRCP could be helpful for further assessment. 3. No liver lesion. No elodia-hepatic ascites. 03/26/2016: CT ANGIOGRAM OF THE CHEST WITH AND WITHOUT CONTRAST (CT PULMONARY ANGIOGRAM FOR PE)- 1. Adequate contrast opacification of the pulmonary arterial vasculature, without evidence of pulmonary embolism. 2. Unchanged architectural distortion within the bilateral upper lobes, notably within the right lung apex. 3. 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 4. Stable 5 mm pulmonary nodule within the lingula. This finding is entirely nonspecific. Recommend follow-up chest CT in one year to establish two-year stability, per Fleischner Society guidelines, as detailed below. 03/27/2016: *MR ABDOMEN WITHOUT CONTRAST/MRCP- 1. Abnormally dilated central intrahepatic bile ducts and extrahepatic bile ducts with a nonobstructing 0.8 cm stone seen within the distal common bile duct. Gallbladder with small intraluminal gallstones and layering sludge. No evidence of cholecystitis. 2. Diffuse hepatic steatosis. No focal liver mass. 3. Atrophic pancreas with mild 4 mm secondary dilatation of the pancreatic duct. No pancreatic mass. No pancreas divisum. 4. Small mass in right adrenal gland, most consistent with a benign finding, such as a small lipid rich adenoma versus nodular hypertrophy of the adrenal gland. 5. Chronic mild left-sided hydronephrosis and a few scattered subcentimeter sized renal cysts.
--- NOTE | 2016-03-29 10:42 | PN- Pulmonary ---
Subjective HPI/Critical Care Issues: Doing better Afebrile Awaiting ERCP Vital signs reviewed stable afebrile Eyes and nose reviewed patient did have a bowel movement yesterday No new imaging Significant data reviewed blood work reviewed stable as noted below bilirubin is normal, white count is elevated at 19.3 with thesignificant left shift however. Patient is on prednisone. Objective Current Medications: Current Medications Sig/Ade Start time Last Medication Dose Route Stop Time Status Admin Albuterol Sulfate 3 ML Q4-6 PRN PRN 03/26 2300 AC INH Albuterol Sulfate 2 PUF Q4-6 PRN PRN 03/26 2300 AC 03/28 INH 0903 Amlodipine Besylate 2.5 MG DAILY 03/27 1000 AC 03/29 PO 1002 Aspirin Buffered 81 MG DAILY 03/27 1000 AC 03/28 PO 0857 Fluticasone 2 PUF BID 03/28 1443 AC 03/29 Propionate INH 1003 Folic Acid 1 MG DAILY 03/27 1033 AC 03/29 PO 1002 Heparin Sodium 5,000 UNIT Q8 03/27 1400 AC (Porcine) SC Magnesium Sulfate 1 GM ONCE ONE 03/28 1445 DC 03/28 Dextrose/Water 100 ML IV 03/28 1844 1635 Methylprednisolone 40 MG Q12 03/27 2200 DC 03/28 IV 0855 Multivitamins 1 TAB DAILY 03/27 1033 AC 03/29 PO 1002 Patient Medication 1 ED .STK-MED ONE 03/28 1352 DC Teaching ED 03/28 1353 Prednisone 40 MG DAILY 03/29 1000 AC 03/29 PO 1002 Thiamine HCl 100 MG DAILY 03/27 1033 AC 03/29 PO 1002 Tiotropium [place] 1 PUF DAILY 03/27 1000 DC 03/28 INH 0857 Vital Signs & I&O Last 24 Hrs of Vitals and I&O: Vital Signs Date Time Temp Pulse Resp B/P Pulse O2 O2 Flow FiO2 Ox Delivery Rate 03/29 1002 85 136/89 03/29 0824 98.4 85 16 136/89 98 Room Air 03/29 0014 98.1 102 20 130/88 96 03/28 2258 95 Room Air Room Air 03/28 1600 Room Air 03/28 1559 98.0 94 18 132/92 96 Intake & Output 03/29 1600 03/29 0800 03/29 0000 Intake Total 730 Output Total 650 350 Balance -650 380 Intake, IV 130 Intake, Oral 600 Output, Urine 650 350 Impression/Plan Impression/Plan Impression/Plan: SIGNIFICANT DATA Room air sat when I checked it was 97% CT scan of the chest abdomen reviewed No pulmonary embolism, architectural distortion within the upper lobes especially in the right apex with significant pleural calcification within bilateral hemithoraces likely associate financial representative of asbestos related pleural disease and a 5 mm lung nodule. He does have right upper lobe distortion and bronchiectasis with His gallbladder showed dilated CBD MRI of the abdomen reviewed showed abnormally dilated central intrahepatic bile ducts with extrahepatic stone, diffuse hepatic steatosis, atrophic pancreas, probably benign adrenal adenoma with chronic mild left-sided hydronephrosis. IMPRESSION This is a 75-year-old gentleman who is followed at [facility], 30-pack- year smoking history quit in 1989, significant chronic obstructive and restrictive lung disease with previous history of tuberculosis with surgery done in early in the right upper lobe with status post anti-TB treatment, previous history of moderate alcohol use, history of paroxysmal atrial fibrillation not on anticoagulation, hypertension, previous history of C. difficile, cholelithiasis, anxiety and depression, previous history of asbestos exposure by his CT findings now comes in with * Shortness of breath which seems to have rapidly resolved in a gentleman with both obstructive and restrictive lung disease. * He has clinically moderate to severe COPD with significant restriction as well due to previous tuberculosis and mild pulmonary fibrosis. He also has restrictive lung disease with significant pleural plaque bilaterally, the pleural plaques appears to be more in the basal area probably related to pleurisy he may have had from tuberculosis. Asbestos related pleural plaque is a possibility but maybe less likely. * 5 mm lung nodule stable with one-year follow-up CT * Choledocholithiasis with elevated bilirubin * Previous history of alcohol use patient states that he has not been drinking in the past 2-4 weeks. Hence immunosuppressed * Proximal atrial fibrillation not on anticoagulation * Remote history of tuberculosis with right upper lobe surgery probably segmentectomy with chronic lung disease with bronchiectasis with no evidence suggestive of active TB recurrence * Chronic lung disease and patient is on oxygen on and off as needed depending on his O2 sat at this time not hypoxemic * Chronic hypomagnesemia probably related to GI loss. * Glucose intolerance with atrophic pancreas with previous history of alcoholic use * Previous history of C. difficile RECOMMENDATION * As he is not significantly wheezing discontinue Solu-Medrol, and discontinue steroids for now. * Xzvvo-eou-ftkwr nebulizer therapy with ipratropium and albuterol * Hold Spiriva till discharge * Start him on Flovent 222 puffs twice a day * Sputum culture * Antibiotics if needed for his biliary sepsis per GI. At this time no clinical evidence suggestive of active infection patient does not have significant leukocytosis or fever. If he does have any evidence of fever after his steroid stopped start him on high-dose Unasyn * Aggressive magnesium replacement intravenously * Watch for alcohol withdrawal * Patient can undergo ERCP today and could be intubated if needed he would need to be ventilated with lower tidal volumes as he has both obstructive restrictive lung disease. Discussed the risks and benefits of intubation with the patient and he agrees to go ahead with the procedure and accepts all risks. If he were to get intubated early extubation should be contemplated.
[2016-03-29] MEDS ORDERED: ONE DAILY MULT1 EAC2 PO (15:35)
[2016-03-29] MEDS ORDERED: VITAMIN B-1100 MG PO (15:35)
[2016-03-29] MEDS ORDERED: FOLIC ACID1 M1 PO (15:35)
--- NOTE | 2016-03-29 15:35 | Patient Discharge Instructions ---
Discharge Instructions General Discharge Information Special Instructions: Please follow up with PCP within 7 days of discharge Please dont take blood thinner and anticoagulation for next 48 hours Please follow up with GI with in a week of discharge. Acute Coronary Syndrome Inclusion Criteria At DC or during hospital stay patient has or had the following: ACS DIAGNOSIS No Discharge Core Measures Meds if any: Prescribed or Continued at Discharge Meds if any: NOT Prescribed or Continued at Discharge Congestive Heart Failure Inclusion Criteria At DC or during hospital stay patient has or had the following: CHF DIAGNOSIS No Discharge Core Measures Meds if any: Prescribed or Continued at Discharge Meds if any: NOT Prescribed or Continued at Discharge Cerebrovascular accident Inclusion Criteria At DC or during hospital stay patient has or had the following: CVA/TIA Diagnosis No Discharge Core Measures Meds if any: Prescribed or Continued at Discharge Meds if any: NOT Prescribed or Continued at Discharge Venous thromboembolism Inclusion Criteria VTE Diagnosis No VTE Type NONE VTE Confirmed by (Test) NONE Discharge Core Measures - Per Current guidelines, there needs to be overlap - treatment for the first 5 days of Warfarin therapy. - If discharged on Warfarin prior to 5 days of - overlap therapy, the patient will need to be - assessed for post discharge needs including - *Post discharge parental anticoagulation - *Warfarin and/or parental anticoagulation education - *Follow up date to check INR post discharge At least 5 days overlap therapy as Inpatient No Meds if any: Prescribed or Continued at Discharge Note: Overlap Therapy is Warfarin and Anticoagulant Meds if any: NOT Prescribed or Continued at Discharge
--- NOTE | 2016-03-29 16:23 | RADIOLOGY REPORT ---
EXAMINATION: XR BILIARY AND PANCREATIC ERCP CLINICAL INFORMATION: Cholelithiasis and choledocholithiasis. COMPARISON: MRI abdomen, 03/27/2016. TECHNIQUE: ERCP was performed under fluoroscopic assistance and twelve spot fluoroscopy images of the right upper abdomen are submitted into the electronic picture archive. FLUOROSCOPY TIME: 18 minutes, 34 seconds FINDINGS: A duodenoscope was advanced to the ampulla, common duct cannulated and iodinated contrast injected. Filling defect was present within the proximal segment of the dilated CBD (consistent with choledocholithiasis). A balloon was utilized to sweep the duct. The central right and left hepatic ducts were mildly dilated. Please refer to the procedure report from Dr. Garcia. IMPRESSION: - Fluoroscopic imaging assistance provided during performance of ERCP by Dr. Garcia. - Cholelithiasis and choledocholithiasis.
--- NOTE | 2016-03-29 17:22 | Proc Note ERCP ---
ERCP Procedure Procedure Date: 03/29/16 GI Procedure(s): ERCP with sphincterotomy/stone strap cutter: Emre Garcia M.D. ASA Classification: III Indications: Elevated liver enzymes Choledocholithiasis (demonstrated on MRCP) Instrument: duodenoscope Meds Received: PETE, TIVA Patient's Tolerance: good Complications: none Procedure: The patient signed informed consent, and was brought to operated room. He was intubated and medicated, and was turned into the prone position. Pulse oximetry , blood pressure and cardiac monitoring were performed continuously throughout the procedure. The Olympus high-definition V duodenoscope was inserted into the mouth and advanced to the duodenum. The stomach was not examined carefully. The duodenal mucosa and folds were normal. The papilla was normal. The common bile duct was cannulated and opacified. The pancreatic duct was not cannulated or injected. The cholangiogram demonstrated dilatation of the common bile duct, marked dilatation of common hepatic duct, and dilated hepatic ducts without other abnormality. There were 2 adjacent filling defects in the CHD. A large bloodless sphincterotomy was performed. The common bile duct was visible endoscopically. Filling defects were mobile, and floating in the dilated CHD. Balloon extraction was not successful. The larger stone was extracted with a 4 wire basket. The smaller stone could not be removed, despite use of 4 and 8 wire baskets, and reattempt at balloon extraction. Given the large sphincterotomy, and the small size of the filling defect (as well as known residual cholelithiasis without anticipated cholecystectomy), it was deemed reasonable to stop the procedure at this time. The patient was extubated successfully, and brought to the PACU for recovery. Impression: * Choledocholithiasis Recommendations: * Clear liquid diet tonight, and advance to regular diet tomorrow * No anticoagulation for 72 hours * No need for antibiotics * Outpatient GI follow-up CC: JAI MAHONEY APRN
[2016-03-29 17:37] VITALS: BP 154/99
[2016-03-29 23:45] VITALS: BP 128/78
[2016-03-30 07:53] VITALS: BP 130/70
[2016-03-30 08:35] LABS: ABSOLUTE BASOPHIL COUNT 0 /CUMM (0.0-0.2); ABSOLUTE EOSINOPHIL COUNT 0 /CUMM (0.0-0.7); ABSOLUTE GRANULOCYTE CT 11.1 /CUMM (1.4-6.5); ABSOLUTE LYMPH COUNT 2.4 /CUMM (1.2-3.4); ABSOLUTE MONOCYTE COUNT 2.2 /CUMM (0.10-0.60); BASOPHIL % 0.1 % (0.0-2.0); EOSINOPHIL % 0.2 % (0-5); GRANULOCYTE % 70.2 % (42.2-75.2); HEMATOCRIT 36.8 % (42-52); MEAN CORPUSCULAR HGB 33.3 PG (27.0-31.0); MEAN CORPUSCULAR HGB CONC 33.8 G/DL (33.0-37.0); MEAN CORPUSCULAR VOLUME 98.7 FL (80.0-94.0); MEAN PLATELET VOLUME 7.7 FL (7.4-10.4); PLATELET COUNT 277 /CUMM (130-400); RBC DISTRIBUTION WIDTH 15.5 % (11.5-14.5); RED BLOOD CELL CT 3.73 /CUMM (4.70-6.10); WHITE BLOOD CELL COUNT 15.9 /CUMM (4.8-10.8)
--- NOTE | 2016-03-30 08:54 | PN- Housestaff ---
STEFF KIDD 03/30/16 0854: Subjective Follow-up For: -Acute on chronic hypoxic respiratory failure -Choledocolithiasis s/p ERCP with sphincterotomy and stone extraction Complaints: no complaints Subjective: I have seen and examiend the patient today mmorning. She was sitting on the bed having his clear liquid breakfast last night he was advanced to clear liquid diet after ercp, however he had an episode of vomitng, today mroning he seems to be doign fine, we willadvance him to full liquid for lunch and watch how he toelrates. his vitals are stable, he is mildly tachycardic, white count coming down, lytes wnl, lft's not checked today, no abdominal pain, fever, nausea, vomiting. Review of Systems Constitutional: Reports: see HPI. Objective Last 24 Hrs of Vital Signs/I&O Vital Signs Date Time Temp Pulse Resp B/P Pulse O2 O2 Flow FiO2 Ox Delivery Rate 03/30 0839 116 130/70 03/30 0753 98.8 116 20 130/70 95 03/30 0000 Nasal 2.0L Cannula 03/29 2345 98.0 84 18 128/78 97 Room Air 03/29 1737 97.9 94 17 154/99 98 Room Air 03/29 1205 96 Room Air Intake & Output 03/30 1600 03/30 0800 03/30 0000 Intake Total 60 60 Output Total Balance 60 60 Intake, IV 10 10 Intake, Oral 50 50 Number 1 Bowel Movements Physical Exam General Appearance: Alert, Oriented X3, Cooperative, No Acute Distress Skin: No Rashes, No Breakdown, No Significant Lesion HEENT: Atraumatic, PERRLA, EOMI Lymphatic: no lad Cardiovascular: Normal S1, Normal S2, No Murmurs Lungs: Clear to Auscultation, Normal Air Movement Abdomen: Normal Bowel Sounds, Soft, No Tenderness Neurological: Strength at 5/5 X4 Ext, Normal Tone, Sensation Intact, Cranial Nerves 3-12 NL Extremities: No Clubbing, No Cyanosis, No Edema, Normal Pulses Vascular: Normal Pulses Current Medications: Current Medications Sig/Ade Start time Last Medication Dose Route Stop Time Status Admin Albuterol Sulfate 3 ML Q4-6 PRN PRN 03/26 2299 AC INH Albuterol Sulfate 2 PUF Q4-6 PRN PRN 03/26 2299 AC 03/28 INH 0903 Amlodipine Besylate 2.5 MG DAILY 03/27 1000 AC 03/30 PO 0839 Aspirin Buffered 81 MG DAILY 03/27 1000 AC 03/28 PO 0857 Fentanyl Citrate 200 MCG .STK-MED ONE 03/29 1256 DC IM 03/29 1257 Fluticasone 2 PUF BID 03/28 1443 AC 03/30 Propionate INH 0841 Folic Acid 1 MG DAILY 03/27 1033 AC 03/30 PO 0838 Glucagon 1 MG .STK-MED ONE 03/29 1541 DC IV 03/29 1542 Heparin Sodium 5,000 UNIT Q8 03/27 1400 AC (Porcine) SC Iopamidol 1 ML .STK-MED ONE 03/29 1541 DC IV 03/29 1542 Lidocaine 2 IZABELA .STK-MED ONE 03/29 1541 DC TOP 03/29 1542 Midazolam HCl 4 MG .STK-MED ONE 03/29 1256 DC IM 03/29 1257 Multivitamins 1 TAB DAILY 03/27 1033 AC 03/30 PO 0839 Ondansetron HCl 4 MG .STK-MED ONE 03/29 1523 DC IM 03/29 1524 Potassium Chloride 40 MEQ ONCE ONE 03/30 0945 DC PO 03/30 0946 Prednisone 40 MG DAILY 03/29 1000 DC 03/29 PO 1002 Thiamine HCl 100 MG DAILY 03/27 1033 AC 03/30 PO 0839 Last 24 Hrs of Lab/Figueroa Results Last 24 Hrs of Labs/Mics: Laboratory Tests 03/30/16 0632: CBC w Diff NO MAN DIFF REQ, RBC 3.73 L, MCV 98.7 H, MCH 33.3 H, RDW 15.5 H, MPV 7.7, Gran % 70.2, Lymphocytes % 15.4 L, Monocytes % 14.1 H, Eosinophils % 0.2, Basophils % 0.1, Absolute Granulocytes 11.1 H, Absolute Lymphocytes 2.4, Absolute Monocytes 2.2 H, Absolute Eosinophils 0, Absolute Basophils 0, PUBS MCHC 33.8 03/30/16 0630: Anion Gap 8, Estimated GFR > 60, BUN/Creatinine Ratio 29.0 H Lines/Diet/Fluids Restraints: none Assessment/Plan Assessment: Patient is 75-year-old male with past medical history of COPD on as needed 2L O2 , HTN, Afib not on AC, TB s/p RUL resection, who is followed at [facility], last admitted for COPDE (Mar 2015) is here for evaluation of weakness, lethargy, CARL[place] and cough productive of yellow phlegm Vitals were stable on admission except for tachycardia with a heart rate of 100 His Labs were significant for leukocytosis of WBC 11.6, macrocytic anemia, Mag 1.1, T. Bili 2.0, D. Bili 0.9, AST 71, ALT 64, trop neg, EKG showed: Sinus tachycardia, PVC's, Qtc 490. Chest x-ray negative for acute pulmonary pathology Ultrasound abdomen was significant for cholelithiasis and dilated common bile duct of 1.7 without a stone visualized Problem list/assessment and plan 1. Acute on chronic hypoxic respiratory failure * Patient has a history of COPD,there was no evidence of any pnuemonia. * CT trc nebs. * Sats today -95% on 2 litres, will taper off oxygen. * Sputum culture is negative * Patient was initially started on IV steroids in ER and was witched to po later , however this was dc's by pulmo * much better and stable now. 2. Cholelithiasis, with dilated CBD on ultrasound * Patient had an MRCP done yesterday. He has 0.8 cm non obstructing stone. * He was taken for ERCP 03/29 and had sphinterotomy with removal of stone. * He was advacned to clear liquid diet , he had one episode of vomting last night, today morning he was still on clear liquids, will advance him to full for lunch and watch how he tolerates. * He remains asymptomatic, no fever/chills/abdominal pain * Hepatitis panel was negative * If he tolerated lunch can consider discharge latter in afternoon. 3. Alcohol dependence * Patient has a history of alcohol abuse, according to him his last drink was one month ago. * Dc ciwa * Ct Mv, thiamine, folate. 4. HTN * Ct norvasc 2.5 mg daily * BP stable. Anticipate dc if toleates lunch well latter in afternoon, patient feels he feels more comfortalbe goiing tmrw, but will touch base again. DVT ppx Lovenox. Full code. Problem List: 1. Cholelithiasis 2. Abnormal LFTs 3. Dilated cbd, acquired 4. Fatty liver 5. COPD exacerbation Pain Ratin Pain Location: abdomen Pain Goal: Remain pain free Pain Plan: current plan ct Tomorrow's Labs & Rationales: not needed Discharge Plan Discharge Disposition: home YOLI AUKENJI 03/30/16 1635: Attending MD Review Statement Attending Statement Attending MD Statement: examined this patient, discuss w/resident/PA/YOUTH OFFICER, agreed w/resident/PA/YOUTH OFFICER, reviewed EMR data (avail) Attending Assessment/Plan: 75M PMH COPD on PRN home oxygen, HTN, alcohol use admitted with shortness of breath, cough, yellow sputum, elevated LFTs, found incidentally to have dilated CBD to 1.7cm. No evidence of cholangitis at this time. No evidence of pneumonia on imaging. ERCP performed 03/29, stone removed with sphincterotomy, smaller stone could not be removed. Patient tolerated the procedure well. He is tolerating small amounts of liquid diet today without abdominal pain or vomiting. 1. Acute exacerbation of COPD 2. Acute bronchitis 3. Dilated common bile duct 4. Elevated LFTs Plan - Continue on general medicine - Advance to regular diet - Follow GI and pulmonary recommendations - Discontinue steroids per pulmonology - TRC/nebulizer treatments - No antibiotics at this time - Continue home medications - DVT PPx - Discharge tomorrow if regular diet tolerated
--- NOTE | 2016-03-30 14:01 | PN- Pulmonary ---
Subjective HPI/Critical Care Issues: The patient is awake and alert. He denies any respiratory symptoms at present. Specifically, he has no shortness of breath, chest pain, chest congestion, wheezing, sputum production, fever or chills. His abdominal pain is improved. He is tolerating a clear liquid diet. Objective Current Medications: Current Medications Sig/Ade Start time Last Medication Dose Route Stop Time Status Admin Albuterol Sulfate 3 ML Q4-6 PRN PRN 03/26 2300 AC INH Albuterol Sulfate 2 PUF Q4-6 PRN PRN 03/26 2300 AC 03/28 INH 0903 Amlodipine Besylate 2.5 MG DAILY 03/27 1000 AC 03/30 PO 0839 Aspirin Buffered 81 MG DAILY 03/27 1000 AC 03/28 PO 0857 Fluticasone 2 PUF BID 03/28 1443 AC 03/30 Propionate INH 0841 Folic Acid 1 MG DAILY 03/27 1033 AC 03/30 PO 0838 Glucagon 1 MG .STK-MED ONE 03/29 1541 DC IV 03/29 1542 Heparin Sodium 5,000 UNIT Q8 03/27 1400 AC (Porcine) SC Iopamidol 1 ML .STK-MED ONE 03/29 1541 DC IV 03/29 1542 Lidocaine 2 IZABELA .STK-MED ONE 03/29 1541 DC TOP 03/29 1542 Multivitamins 1 TAB DAILY 03/27 1033 AC 03/30 PO 0839 Ondansetron HCl 4 MG .STK-MED ONE 03/29 1523 DC IM 03/29 1524 Potassium Chloride 40 MEQ ONCE ONE 03/30 0945 DC 03/30 PO 03/30 0946 1341 Thiamine HCl 100 MG DAILY 03/27 1033 AC 03/30 PO 0839 Vital Signs & I&O Last 24 Hrs of Vitals and I&O: Vital Signs Date Time Temp Pulse Resp B/P Pulse O2 O2 Flow FiO2 Ox Delivery Rate 03/30 0839 116 130/70 03/30 0753 98.8 116 20 130/70 95 03/30 0000 Nasal 2.0L Cannula 03/29 2345 98.0 84 18 128/78 97 Room Air 03/29 1737 97.9 94 17 154/99 98 Room Air Intake & Output 03/30 1600 03/30 0800 03/30 0000 Intake Total 60 60 Output Total Balance 60 60 Intake, IV 10 10 Intake, Oral 50 50 Number 1 Bowel Movements Exam General Appearance: no apparent distress, alert, awake, comfortable Head: atraumatic, normal appearance Neck: supple Respiratory: quiet respiration, decreased breath sounds, no wheezing Cardiovascular: regular rate/rhythm (heart sounds distant) Abdomen: normal bowel sounds, soft, non-tender Extremities: no edema Skin: intact, normal color, warm/dry Results Last 24 Hrs of Lab Results: Laboratory Tests 03/30/16 0632: CBC w Diff NO MAN DIFF REQ, RBC 3.73 L, MCV 98.7 H, MCH 33.3 H, RDW 15.5 H, MPV 7.7, Gran % 70.2, Lymphocytes % 15.4 L, Monocytes % 14.1 H, Eosinophils % 0.2, Basophils % 0.1, Absolute Granulocytes 11.1 H, Absolute Lymphocytes 2.4, Absolute Monocytes 2.2 H, Absolute Eosinophils 0, Absolute Basophils 0, PUBS MCHC 33.8 03/30/16 0630: Anion Gap 8, Estimated GFR > 60, BUN/Creatinine Ratio 29.0 H Last 24 Hrs of Micro Results: No culture data available Impression/Plan Impression/Plan Impression/Plan: 1. Cholelithiasis and choledocholithiasis, status post ERCP. 2. History of both obstructive and restrictive lung disease. The patient is clinically stable from a respiratory perspective today. 3. History of restrictive lung disease in the setting of previous tuberculosis and mild pulmonary fibrosis. He also has pleural plaques bilaterally. 4. 5 mm lung nodule which will require a 1 year follow-up CT scan. 5. Previous history of EtOH abuse, noting the patient has not been drinking for the past several weeks. 6. Proximal atrial fibrillation, not on anticoagulation. Recommendations: * Monitor off steroid therapy. * Continue rcadol-dmo-cegmh nebulizer treatments. * Continue Flovent 220 g, 2 puffs twice daily. * Follow-up sputum culture results. * Continue multivitamin, thiamine and folate. * Continue antihypertensive regimen. * Advance diet as tolerated. * Monitor off antibiotics as per GI. * DVT prophylaxis. * Continue all supportive care.
[2016-03-30 16:16] VITALS: BP 118/70
[2016-03-31] VITALS: BP 118/72
[2016-03-31 00:34] VITALS: BP 118/72
--- NOTE | 2016-03-31 08:58 | PN- Housestaff ---
LUZ MAR MD,GIANCARLO 03/31/16 0857: Subjective Follow-up For: Acute on chronic hypoxic respiratory failure Choledocolithiasis s/p ERCP with sphincterotomy and stone extraction Complaints: no complaints Tele-Events Since Last Visit: None Subjective: Patient was started on regular diet yesterday night and tolerated it Patient remained afebrile overnight Review of Systems Constitutional: Denies: chills, fever. EENTM: Denies: visual changes. Cardiovascular: Denies: chest pain, palpitations. Respiratory: Denies: short of breath. Gastrointestinal: Denies: abdominal pain, nausea. Musculoskeletal: Denies: back pain. Objective Last 24 Hrs of Vital Signs/I&O Vital Signs Date Time Temp Pulse Resp B/P Pulse O2 O2 Flow FiO2 Ox Delivery Rate 03/31 0034 98.7 78 20 118/72 98 Nasal Cannula 03/31 0000 98.7 78 20 118/72 03/31 0000 98 Nasal 2.0L Cannula 03/30 1616 98.8 74 20 118/70 96 Room Air Intake & Output 03/31 1600 03/31 0800 03/31 0000 Intake Total 120 410 Output Total 900 575 Balance -780 -165 Intake, IV 10 Intake, Oral 120 400 Number 1 Bowel Movements Output, Urine 900 575 Physical Exam General Appearance: Alert, Oriented X3, Cooperative, No Acute Distress Skin: No Rashes HEENT: Atraumatic Cardiovascular: Regular Rate, Normal S1, Normal S2 Lungs: Clear to Auscultation, Normal Air Movement Abdomen: Normal Bowel Sounds, Soft, No Tenderness Neurological: Normal Speech, Normal Tone Extremities: No Edema Current Medications: Current Medications Sig/Ade Start time Last Medication Dose Route Stop Time Status Admin Albuterol Sulfate 3 ML Q4-6 PRN PRN 03/26 2300 AC INH Albuterol Sulfate 2 PUF Q4-6 PRN PRN 03/26 2300 AC 03/28 INH 0903 Amlodipine Besylate 2.5 MG DAILY 03/27 1000 AC 03/30 PO 0839 Aspirin Buffered 81 MG DAILY 03/27 1000 AC 03/28 PO 0857 Fluticasone 2 PUF BID 03/28 1443 AC 03/30 Propionate INH 2128 Folic Acid 1 MG DAILY 03/27 1033 AC 03/30 PO 0838 Heparin Sodium 5,000 UNIT Q8 03/27 1400 AC (Porcine) SC Multivitamins 1 TAB DAILY 03/27 1033 AC 03/30 PO 0839 Potassium Chloride 40 MEQ ONCE ONE 03/30 1400 DC 03/30 PO 03/30 1401 1636 Potassium Chloride 40 MEQ ONCE ONE 03/30 0945 DC PO 03/30 0946 Thiamine HCl 100 MG DAILY 03/27 1033 AC 03/30 PO 0839 Lines/Diet/Fluids Fluids/Infusions: none Restraints: none Assessment/Plan Assessment: Patient is 75-year-old male with past medical history of COPD on as needed on 2L O2, HTN, Afib not on AC, TB s/p RUL resection, who is followed at the [facility], last admitted for COPDE (Mar 2015) is here for evaluation of weakness, lethargy, CARLTON and productive cough. Vitals were stable on admission except for tachycardia with a heart rate of 100 His Labs were significant for leukocytosis of WBC 11.6, macrocytic anemia, Mag 1.1, T. Bili 2.0, D. Bili 0.9, AST 71, ALT 64, trop neg, EKG showed: Sinus tachycardia, PVC's, Qtc 490. Chest x-ray negative for acute pulmonary pathology Ultrasound abdomen was significant for cholelithiasis and dilated common bile duct of 1.7 without a stone visualized Problem list/assessment and plan Acute on chronic hypoxic respiratory failure Patient has a history of COPD,there was no evidence of current respiratory symptoms. Continue TRC nebs Oxygen saturation today -97% on room air Patient was initially started on IV steroids in ER and was witched to po later and currently patient is off steroids as per pulmonology recommendations Patient is being followed off antibiotics and remained afebrile overnight Continue Flovent 2 puffs twice daily Cholelithiasis, status post ERCP Patient had an MRCP done. He has 0.8 cm non obstructing stone. He was taken for ERCP 03/29 and had sphinterotomy with removal of stone. He was advacned to clear liquid diet , with an episode of vomting last initially , progressively diet was advanced to full liquid and to regular diet yesterday dinner. He remains asymptomatic, no fever/chills/abdominal pain Hepatitis panel was negative If he tolerates lunch can consider discharge latter in afternoon. Alcohol dependence Patient has a history of alcohol abuse, according to him his last drink was one month ago. Dc ciwa Ct Mv, thiamine, folate. HTN Continue amlodipine 2.5 mg daily BP stable. DVT ppx Lovenox. Full code. Problem List: 1. Alcohol withdrawal 2. Abnormal LFTs 3. Dilated cbd, acquired 4. S/P ERCP Pain Ratin Pain Location: Abdomen Pain Goal: Pain 4 or less Pain Plan: no pain medications needed Tomorrow's Labs & Rationales: Not needed DVT/Prophylaxis: pharmacological Discharge Plan Discharge Disposition: home YOLI AULETICIAMERCEDES 03/31/16 1231: Attending MD Review Statement Attending Statement Attending MD Statement: examined this patient, discuss w/resident/PA/ELECTRICIAN APPRENTICE, agreed w/resident/PA/ELECTRICIAN APPRENTICE, reviewed EMR data (avail) Attending Assessment/Plan: 75M PMH COPD on PRN home oxygen, HTN, alcohol use admitted with shortness of breath, cough, yellow sputum, elevated LFTs, found incidentally to have dilated CBD to 1.7cm. No evidence of cholangitis at this time. No evidence of pneumonia on imaging. ERCP performed 03/29, stone removed with sphincterotomy, smaller stone could not be removed. Patient tolerated the procedure well. He is tolerating small amounts of liquid diet today without abdominal pain or vomiting. 1. Acute exacerbation of COPD 2. Acute bronchitis 3. Dilated common bile duct 4. Elevated LFTs Plan - Stable for discharge home - Follow GI and pulmonary recommendations - Continue home medications
[2016-03-31 09:00] VITALS: BP 116/70
--- NOTE | 2016-03-31 11:21 | PN- Pulmonary ---
Subjective HPI/Critical Care Issues: The patient is awake and alert. He is feeling markedly improved. He reports feeling well enough to go home. He has no shortness of breath, cough or chest congestion. He offers no complaints at present. Objective Current Medications: Current Medications Sig/Ade Start time Last Medication Dose Route Stop Time Status Admin Albuterol Sulfate 3 ML Q4-6 PRN PRN 03/26 2300 AC INH Albuterol Sulfate 2 PUF Q4-6 PRN PRN 03/26 2300 AC 03/28 INH 0903 Amlodipine Besylate 2.5 MG DAILY 03/27 1000 AC 03/30 PO 0839 Aspirin Buffered 81 MG DAILY 03/27 1000 AC 03/28 PO 0857 Fluticasone 2 PUF BID 03/28 1443 AC 03/30 Propionate INH 2128 Folic Acid 1 MG DAILY 03/27 1033 AC 03/30 PO 0838 Heparin Sodium 5,000 UNIT Q8 03/27 1400 AC (Porcine) SC Multivitamins 1 TAB DAILY 03/27 1033 AC 03/30 PO 0839 Potassium Chloride 40 MEQ ONCE ONE 03/30 1400 DC 03/30 PO 03/30 1401 1636 Thiamine HCl 100 MG DAILY 03/27 1033 AC 03/30 PO 0839 Vital Signs & I&O Last 24 Hrs of Vitals and I&O: Vital Signs Date Time Temp Pulse Resp B/P Pulse O2 O2 Flow FiO2 Ox Delivery Rate 03/31 09 98.0 109 18 116/70 97 Room Air 03/31 0034 98.7 78 20 118/72 98 Nasal Cannula 03/31 0000 98.7 78 20 118/72 03/31 0000 98 Nasal 2.0L Cannula 03/30 1616 98.8 74 20 118/70 96 Room Air Intake & Output 03/31 1600 03/31 0800 03/31 0000 Intake Total 120 410 Output Total 900 575 Balance -780 -165 Intake, IV 10 Intake, Oral 120 400 Number 1 Bowel Movements Output, Urine 900 575 Exam General Appearance: no apparent distress, alert, awake, comfortable Head: atraumatic, normal appearance Neck: supple Respiratory: quiet respiration, decreased breath sounds, no wheezing Cardiovascular: regular rate/rhythm (heart sounds distant) Abdomen: normal bowel sounds, soft, non-tender Extremities: no edema Skin: intact, normal color, warm/dry Impression/Plan Impression/Plan Impression/Plan: 1. Cholelithiasis and choledocholithiasis, status post ERCP. 2. History of both obstructive and restrictive lung disease. The patient is clinically stable from a respiratory perspective today. 3. History of restrictive lung disease in the setting of previous tuberculosis and mild pulmonary fibrosis. He also has pleural plaques bilaterally. 4. 5 mm lung nodule which will require a 1 year follow-up CT scan. 5. Previous history of EtOH abuse, noting the patient has not been drinking for the past several weeks. 6. Proximal atrial fibrillation, not on anticoagulation. Recommendations: * Monitor off steroid therapy. * Resume home inhaler regimen upon discharge. * Continue antihypertensive regimen. * Diet as tolerated. * Monitor off antibiotics as per GI. * DVT prophylaxis. * Continue all supportive care. * For discharge later today.
[2016-03-31 12:02] VITALS: BP 120/62
--- NOTE | 2016-04-04 13:55 | Discharge Summary ---
Visit Information Visit Dates Admission Date: 03/26/16 Discharge Date: 03/31/16 Hospital Course Course Attending Physician: KENJI KENT MD Primary Care Physician: JAI MAHONEY APRN Hospital Course: Patient is 75-year-old male with past medical history of COPD on as needed on 2L O2, HTN, Afib not on AC, TB s/p RUL resection, who was followed at the [facility], last admitted for COPD (Mar 2015) was treated for evaluation of weakness, lethargy, CARLTON and productive cough. Vitals were stable on admission except for tachycardia with a heart rate of 100 His Labs were significant for leukocytosis of WBC 11.6, macrocytic anemia, Mag 1.1, T. Bili 2.0, D. Bili 0.9, AST 71, ALT 64, trop neg, EKG showed: Sinus tachycardia, PVC's, Qtc 490. Chest x-ray negative for acute pulmonary pathology Ultrasound abdomen was significant for cholelithiasis and dilated common bile duct of 1.7 without a stone visualized Patient was seen and treated for the following medical problems; Acute on chronic hypoxic respiratory failure Patient had a history of COPD. Patient was continued on TRC nebs his oxygen saturation on the day of discharge were 97% on room air. On admission he was started on IV steroids, and later they were d/cd as he was not wheezing anymore. Pulmonary consult service was on board. Patient was followed off antibiotics. He was continued on Flovent 2 puffs twice daily. Cholelithiasis, status post ERCP Patient had an MRCP done. He had 0.8 cm non obstructing stone. He was taken for ERCP on 03/29 and had sphinterotomy with removal of stone. Later the diet was restarted and patient was tolerating it well. Patient remained asymptomatic, no fever/chills/abdominal pain. His Hepatitis panel was also negative Allergies: Coded Allergies: NO KNOWN ALLERGIES (04/07/15) Disposition Summary Disposition Principal Diagnosis: Hypoxic respiratory failure Additional Diagnosis: Cholelithiasis s/p cholecystectomy Discharge Disposition: home or self care Discharge Instructions General Discharge Information Code Status: Full Code Patient's Diet: heart healthy Patient's Activity: as tolerated Follow-Up Instructions/Appts: Please follow up with PCP upon discharge Medications at Discharge Discharge Medications: Continue taking these medications: Aspirin (Ecotrin*) 81 MG TABLET. 1 Tablet ORAL DAILY Comments: Last Taken: 04/15/16 Time: 0800 Albuterol Sulfate (Proair Hfa) 90 MCG HFA.AER.AD 2 Puff Inhale through mouth EVERY 4-6 HOURS NEEDED as needed for COPD Comments: Last Taken: 03/28/16 Time: 9:00 AM Tiotropium [place] (Spiriva) 18 MCG CAP.W.DEV 1 Capsule Inhale through mouth DAILY Comments: Last Taken: 04/15/16 Time: 0800 Albuterol Sulfate (Albuterol Sulfate) 2.5 MG/3 ML (0.083 %) VIAL.NEB 1 Vial Inhale Solution as needed for COPD Comments: NOT GIVEN IN HOSPITAL Start taking the following new medications: Folic Acid (Folic Acid) 1 MG TABLET 1 Milligram ORAL DAILY Days = 30 No Refills Comments: Last Taken: 04/15/16 Time: 0800 Multivitamin (One Daily Multivitamin) 1 EACH TABLET 1 Tablet ORAL DAILY Days = 30 No Refills Comments: Last Taken: 04/15/16 Time: 0800 Thiamine HCl (Vitamin B-1) 100 MG TABLET 100 Milligram ORAL DAILY Days = 30 No Refills Comments: Last Taken: 04/15/16 Time: 0800 Copies To: YOLI AU,KENJI; FREYA AU,WILNER Tripp; JAI MAHONEY APRN
[2016-07-20] MEDS ORDERED: PREDNISONE20 M1 PO (12:51)
== END 2016-03-31 15:45 | DRG 190 ==
LOC: ENRESERVDT → ENRESERVTM → ERH 14:15 → ERHI 19:39 → 1NO 19:39 → ENPENDDIS 19:39 → 1NO 22:05
PROVIDERS: Internal Medicine; Physician Assistant; ADMIT Student in an Organized Health Care Education/Training Program
PROC: 0FC98ZZ Extirpation of Matter from Common Bile Duct, Via Natural or Artificial Opening Endoscopic (ICD-10-PCS; principal; 2016-03-29)
DX: J44.1 Chronic obstructive pulmonary disease with (acute) exacerbation (principal); J96.21 Acute and chronic respiratory failure with hypoxia; I48.0 Paroxysmal atrial fibrillation; F10.20 Alcohol dependence, uncomplicated; K80.20 Calculus of gallbladder without cholecystitis without obstruction; R91.1 Solitary pulmonary nodule; Z87.891 Personal history of nicotine dependence; I10 Essential (primary) hypertension; E55.9 Vitamin D deficiency, unspecified; G47.33 Obstructive sleep apnea (adult) (pediatric); F41.8 Other specified anxiety disorders
CPT/HCPCS: 1NSP; 74181; 87798; 36415; 82436; 87040; 87389; 93005; 93010; 96374; 96375; J1610; J1644; J1650; J2405; J2920; J2930; J3490; Q9967

== ENCOUNTER 2016-04-11 18:32 | Inpatient (IN) | payer OTHER ==
[~2016-04-11] VITALS: Ht 177.8 cm; Wt 79.4 kg
[~2016-04-11 18:32] MED LIST changes: +ALBUTEROL2.5 MG/3 M INH/SOL; +ASPIRIN EC81 M1 PO; +BP PO; +FOLIC ACID1 M1 PO; +ONE DAILY MULT1 EAC2 PO; +PROAIR HFA8.5 GM INH; +SPIRIVA18 MCG INH; +VITAMIN B-1100 MG PO
--- NOTE | 2016-04-11 18:45 | ED DYSPNEA/ASTHMA COMPLAINT ---
History of Present Illness General Chief Complaint: Dizziness Stated Complaint: BIBA FOR DIZZINESS AND SHORTNESS OF BREATH Source: patient, old records, EMS Exam Limitations: no limitations Vital Signs & Intake/Output Vital Signs & Intake/Output Vital Signs Date Time Temp Pulse Resp B/P Pulse O2 O2 Flow FiO2 Ox Delivery Rate 04/11 1911 97 Nasal 2.0L Cannula 04/11 1843 99 Room Air 04/11 1842 98.7 93 18 116/82 100 Room Air Allergies Coded Allergies: NO KNOWN ALLERGIES (04/07/15) Reconcile Medications Albuterol Sulfate (Proair Hfa) 90 MCG HFA.AER.AD 2 PUF INH Q4-6 PRN PRN COPD (Reported) Albuterol Sulfate 2.5 MG/3 ML (0.083 %) VIAL.NEB 1 Vial INH/KARTHIKEYAN PRN COPD ( Reported) Aspirin (Ecotrin*) 81 MG TABLET.DR 1 TAB PO DAILY HEART/BLOOD (Reported) Folic Acid 1 MG TABLET 1 MG PO DAILY supplement Multivitamin (One Daily Multivitamin) 1 EACH TABLET 1 TAB PO DAILY supplement Thiamine HCl (Vitamin B-1) 100 MG TABLET 100 MG PO DAILY supplement Tiotropium [place] (Spiriva) 18 MCG CAP.W.DEV 1 CAP INH DAILY COPD (Reported) Triage Note: PT TO ED FOR GENERALIZED WEAKNESS AND SOB THAT WORSENED SINCE LAST NIGHT, PT STATING HE IS BASELINE SOB DUE TO COPD (WEARS 2LNC AT HOME). DENIES FEVER, CP, PALPITATIONS, NAUSEA, VOMITING, DIARRHEA, EDEMA, DENIES ANY URINARY S/S. Triage Nurses Notes Reviewed? yes Onset: Abrupt Duration: day(s): (1), constant Timing: recent history Severity: moderate, severe Activities at Onset: activity Prior Episodes/Possible Cause: occasional episodes Modifying Factors: Worsens With: movement. Associated Symptoms: weakness HPI: 75-year-old male with PMH of COPD on 2 L oxygen at home, HTN, Afib not on anti- coagulation, JOANNE, TB infection (s/p right upper lobectomy 30 years ago) presents brought in by ambulance for generalized weakness associated with progressively worsening shortness of breath worse with exertion however present at rest since last night. The patient has been on 2 L of oxygen at baseline since being discharged from this hospital one week ago for COPD exacerbation. He is not currently on any prednisone. He denies cough fever chills chest pain abdominal pain nausea vomiting or diarrhea. Symptoms are worse with exertion better at rest there are no other associated symptoms (TAWANDA MAY) Past History Travel History Traveled to [place] past 21 day No Medical History Any Pertinent Medical History? 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 compliance), Oxygen What is your primary language Bhutanese Tobacco Use: Never used ETOH Use: denies use Illicit Drug Use: denies illicit drug use Family History Family History, If Any: FATHER, , Age 52; Cause: Myocardial infarction. MOTHER, , Age 93; Cause: Old age. SON, , Age 50-60. Relation not specified for: FH: myocardial infarction Hx Contributory? No (TAWANDA MAY) Review of Systems Review of Systems Constitutional: Reports: see HPI. All Other Systems: Reviewed and Negative Comments Review of systems: See HPI, All other systems negative. Constitutional, no chills no fever, no malaise HEENT: No visual changes no sore throat no congestion Cardiovascular: No chest pain , no palpitation , no orthopnea no ankle swelling Skin, no jaundice no rashes, no change in skin Respiratory: No dyspnea no cough no sputum no hemoptysis GI: No nausea no vomiting, no diarrhea : No dysuria Muscle skeletal: No joint pain, no joint swelling, no back pain, no neck pain, Neurologic: No numbness, no headache Psych: No stress,. Heme/endocrine: No bruising no bleeding Immunology: No lymphadenopathy (TAWANDA MAY) Physical Exam Physical Exam General Appearance: well developed/nourished, alert, awake Respiratory: wheezing, respiratory distress Comments: Well-developed well-nourished person in no acute distress HEENT: Normal EENT exam; PERRL, EOMI,. HEAD is atraumatic. moist mucous membranes. Neck: Supple, normal range of motion Back: Nontender, no CVA tenderness. Full range of motion Cardiovascular: Regular rate and rhythms no murmurs rubs Respiratory: Chest nontender.There were no bony deformities, no asymmetry. No respiratory distress. Patient speaking in full complete sentences. Breath sounds clear to auscultation bilaterally: NO W/R/R Abdomen: Soft, nontender nondistended, no appreciable organomegaly. Normal bowel sounds. No rebound/guarding, No appreciable enlargement of the abdominal aorta, No ascites. Extremity: No edema, full range of motion of extremities Neuro: Alert oriented x3, motor sensory normal, There were no obvious focal neurologic abnormalities. Skin: No appreciable rash on exposed skin, skin is warm and dry. Psych: Mood and affect is normal, memory and judgment is normal. Core Measures ACS in differential dx? No Severe Sepsis Present: No Septic Shock Present: No (HEIKE MYRICK,TAWANDA) Progress Differential Diagnosis: AMI, bronchitis, costochondritis, CHF, COPD, musculoskeletal pain, pericarditis, pulmonary embolism, pneumonia, pneumothorax, unstable angina Plan of Care: Orders Procedure Date/time Status Regular Diet 04/12 B Active Patient Data 04/11 2143 Active Saline Lock 04/11 2031 Active Admit to inpatient 04/11 2031 Active Vital Signs 04/11 2031 Active Activity/Ambulation 04/11 2031 Active Code Status 04/11 2031 Active ARTERIAL BLOOD GAS (GEN) 04/11 1956 Active Intake & Output 04/11 1942 Active Saline Lock 04/11 1856 Active TROPONIN LEVEL 04/11 1856 Complete COMPREHENSIVE METABOLIC PANEL 04/11 1856 Complete CBC WITHOUT DIFFERENTIAL 04/11 1856 Complete B-TYPE NATRIURETIC PEP (BNP) 04/11 1856 Complete EKG 04/11 183 Active Laboratory Tests 04/11/16 2005: pH 7.57 H, pCO2 21 L, pO2 121 H, HCO3 19 L, ABG O2 Sat (Measured) 98.0, P-50 (Temp Corrected) N, Carboxyhemoglobin 0.2 L, O2 Concentration % 1.5L, Temperature 98.7, O2 Delivery Method NC, Phlebotomy Draw Site RIGHT RADIAL 04/11/161939: Anion Gap 18 H, Estimated GFR > 60, BUN/Creatinine Ratio 15.6, Glucose 125 H, Calcium 9.3, Total Bilirubin 1.2, AST 37, ALT 28, Alkaline Phosphatase 102, Troponin I < 0.01, Wnv-Z-Ovjmjaljiew Pept 94.3, Total Protein 7.8, Albumin 4.2, Globulin 3.6, Albumin/Globulin Ratio 1.2, CBC w Diff NO MAN DIFF REQ, RBC 4.22 L, MCV 96.4 H, MCH 32.6 H, RDW 15.6 H, MPV 6.0 L, Gran % 73.8, Lymphocytes % 16.7 L, Monocytes % 9.0, Eosinophils % 0.2, Basophils % 0.3, Absolute Granulocytes 5.9, Absolute Lymphocytes 1.3, Absolute Monocytes 0.7 H, Absolute Eosinophils 0, Absolute Basophils 0, PUBS MCHC 33.8 Labs ordered DuoNeb soluMedrol IV ordered Repeat evaluation patient reports no improvement in symptoms with DuoNeb, lungs with only minimal wheezing no rales or rhonchi discussed with him with his x-ray results, ABG ordered d/w dr saunders Discussed with the patient plan of care believe premature discharge revealed medically harmful which she is in agreement with. case d/w dr amato will admit , Recent CTA was reviewed by myself from previous admission-IMPRESSION: 1. Adequate contrast opacification of the pulmonary arterial vasculature, without evidence of pulmonary embolism. 2. Unchanged architectural distortion within the bilateral upper lobes, notably within the right lung apex. 3. 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 4. Stable 5 mm pulmonary nodule within the lingula. This finding is entirely nonspecific. Recommend follow-up chest CT in one year to establish two-year stability, per Fleischner Society guidelines, as detailed below. Various management parameters for solitary pulmonary nodules are in the literature. According to the Fleischner Society, recommendations for pulmonary nodules are as follows: Nodule size > 4-6 mm in LOW RISK PATIENTS: Follow up CT at 12 months; if unchanged, no further follow up. Nodule size > 4-6 mm in HIGH RISK PATIENTS: Initial follow up CT at 6-12 months, then at 18-24 months if no change. VTE: Negative. DICTATED BY: RIO GOODWIN MD DATE/TIME DICTATED:03/26/161841 BROILER MANAGER:TE DATE/TIME TRANSCRIBED:03/26/161841 (TAWANDA MAY) Diagnostic Imaging: Viewed by Me: Radiology Read. Discussed w/RAD: Radiology Read. Radiology Impression: PATIENT: YUVAL MANSFIELD PRESENT AGE: 75 PATIENT ACCOUNT NO: [id number] : 42 LOCATION: [facility] ORDERING PHYSICIAN: TAWANDA MYRICK SERVICE DATE: 04/11/16 EXAM TYPE: RAD - XRY-PORTABLE CHEST XRAY EXAMINATION: XR PORTABLE CHEST CLINICAL INFORMATION: Dyspnea. COMPARISON: 03/26/2016 TECHNIQUE: Portable AP view of the chest was obtained. FINDINGS: Cardiac leads overlie the chest there is persistent blunting at the left costophrenic angle consistent with known pleural thickening and pleural calcifications. Right apical scarring and bronchiectasis again noted. Left apical scarring noted. No new consolidation. No effusion. No pneumothorax. The cardiomediastinal silhouette is unchanged. No acute osseous abnormality. IMPRESSION: Multiple chronic changes. No acute findings. DICTATED BY: JAMISON FERREIRA MD DATE/TIME DICTATED:04/11/161948 BROILER MANAGER: TE DATE/TIME TRANSCRIBED:04/11/161948 CONFIDENTIAL, DO NOT COPY WITHOUT APPROPRIATE AUTHORIZATION. <Electronically signed in Other Vendor System> SIGNED BY: JAMISON FERREIRA MD 04/11/161956 Initial ED EKG: SINUS TACH MULTIPLE pvcS, NO ACUTE st SEGMENT CHANGES NORMAL AXIS Prior EKG: unchanged (03/26/16) Rhythm Strip: sinus tachycardia (TAWANDA MAY) Departure Departure Time of Disposition: 2049 Disposition: STILL A PATIENT Condition: Stable Clinical Impression Primary Impression: COPD exacerbation Referrals: JAI MAHONEY APRN (PCP/Family) Departure Forms: Customer Survey General Discharge Information Admission Note Spoke With: ELISHA AMATO MD Documentation of Exam: Documentation of any treatments & extenuating circumstances including Concerns Regarding Discharge (functional status, medication knowledge or non-compliance, living conditions, etc.) that warrant an admission rather than observation:, Pulmonology consult IV steroids premature discharge would BE medically harmful patient is not at baseline he is a fall risk was at home alone failed outpatient therapy. (TAWANDA MAY) PA/CUSTOMER SUCCESS SPECIALIST Co-Sign Statement Statement: ED Attending supervision documentation- x I saw and evaluated the patient. I have also reviewed all the pertinent lab results and diagnostic results. I agree with the findings and the plan of care as documented in the PA's/CUSTOMER SUCCESS SPECIALIST's documentation. [] I have reviewed the ED Record and agree with the PA's/CUSTOMER SUCCESS SPECIALIST's documentation. [] Additions or exceptions (if any) to the PAs/CUSTOMER SUCCESS SPECIALIST's note and plan are summarized below: [] (NAA AU,AKITY) Critical Care Note Critical Care Note Critical Care Time: non-applicable (TAWANDA MAY)
[2016-04-11 19:48] LABS: ABSOLUTE BASOPHIL COUNT 0 /CUMM (0.0-0.2); ABSOLUTE EOSINOPHIL COUNT 0 /CUMM (0.0-0.7); ABSOLUTE GRANULOCYTE CT 5.9 /CUMM (1.4-6.5); ABSOLUTE LYMPH COUNT 1.3 /CUMM (1.2-3.4); ABSOLUTE MONOCYTE COUNT 0.7 /CUMM (0.10-0.60); BASOPHIL % 0.3 % (0.0-2.0); EOSINOPHIL % 0.2 % (0-5); GRANULOCYTE % 73.8 % (42.2-75.2); HEMATOCRIT 40.7 % (42-52); MEAN CORPUSCULAR HGB 32.6 PG (27.0-31.0); MEAN CORPUSCULAR HGB CONC 33.8 G/DL (33.0-37.0); MEAN CORPUSCULAR VOLUME 96.4 FL (80.0-94.0); PLATELET COUNT 297 /CUMM (130-400); RBC DISTRIBUTION WIDTH 15.6 % (11.5-14.5); RED BLOOD CELL CT 4.22 /CUMM (4.70-6.10)
--- NOTE | 2016-04-11 19:57 | RADIOLOGY REPORT ---
EXAMINATION: XR PORTABLE CHEST CLINICAL INFORMATION: Dyspnea. COMPARISON: 03/26/2016 TECHNIQUE: Portable AP view of the chest was obtained. FINDINGS: Cardiac leads overlie the chest there is persistent blunting at the left costophrenic angle consistent with known pleural thickening and pleural calcifications. Right apical scarring and bronchiectasis again noted. Left apical scarring noted. No new consolidation. No effusion. No pneumothorax. The cardiomediastinal silhouette is unchanged. No acute osseous abnormality. IMPRESSION: Multiple chronic changes. No acute findings.
[2016-04-12] VITALS (7 sets, daily range): BP systolic 124–150; BP diastolic 70–88
--- NOTE | 2016-04-12 03:12 | History & Physical ---
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 difficile, history of alcohol abuse. He was recently here at [facility] for acute on chronic hypoxic respiratory failure secondary to COPD exacerbation. He was also found to have cholelithiasis and choledocholithiasis and got ERCP. He presented to ER with complaint of worsening of shortness of breath started last night. He has chronic productive cough. According to patient even minimal exertion was making him very short of breath. He denies any fever, chills, chest pain or discomfort, palpitations, chest congestion, wheezing, dizziness or lightheadedness, leg swelling. He also denies any nausea, vomiting, abdominal pain, any changes in urinary or bowel habits. His former smoker. Drinks half pain to vodka once a week per patient. Denies use of recreational drugs. He lives alone. Allergies/Medications Allergies: Coded Allergies: NO KNOWN ALLERGIES (04/07/15) Home Med list Albuterol Sulfate (Proair Hfa) 90 MCG HFA.AER.AD 2 PUF INH Q4-6 PRN PRN COPD (Reported) Albuterol Sulfate 2.5 MG/3 ML (0.083 %) VIAL.NEB 1 Vial INH/KARTHIKEYAN PRN COPD ( Reported) Aspirin (Ecotrin*) 81 MG TABLET.DR 1 TAB PO DAILY HEART/BLOOD (Reported) Folic Acid 1 MG TABLET 1 MG PO DAILY supplement Multivitamin (One Daily Multivitamin) 1 EACH TABLET 1 TAB PO DAILY supplement Thiamine HCl (Vitamin B-1) 100 MG TABLET 100 MG PO DAILY supplement Tiotropium [place] (Spiriva) 18 MCG CAP.W.DEV 1 CAP INH DAILY COPD (Reported) Past History Travel History Traveled to [place] past 21 day No Medical History Blood Transfusion Hx: No Neurological: NONE EENT: NONE Cardiovascular: AFIB (PAF, currently NSR, w/o A/C tx), hypertension Respiratory: COPD, obstructive sleep apnea, 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 TUBERCULOSIS Gastrointestinal: C.difficile x 2, last 5 yrs ago Hepatic: cholelithiasis (incidental on previous CT) Renal: NONE Musculoskeletal: fracture, right hip fracture 10 years ago- R THR @ [facility] Psychiatric: anxiety, mild to mod EtOH, 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 MOTHER, , Age 93; Cause: Old age. SON, , Age 50-60. Relation not specified for: FH: myocardial infarction Psychosocial History Where do you live? Home Who Do You Live With? self Services at Home: Oxygen Primary Language: Nepalese Smoking Status: Former Smoker ETOH Use: denies use Illicit Drug Use: denies illicit drug use Living Will? no Power of Corn Husker/HCP? no Functional Ability ADLs Independent: dressing, eating, toileting, bathing. Ambulation: independent IADLs Independent: shopping, housework, finances, food prep, telephone, transportation , medication admin. Review of Systems Review of Systems Constitutional: Reports: see HPI. Exam & Diagnostic Data Last 24 Hrs of Vital Signs/I&O Vital Signs Date Time Temp Pulse Resp B/P Pulse O2 O2 Flow FiO2 Ox Delivery Rate 04/12 0100 97 Nasal 2.0L Cannula 04/12 0029 97.8 109 20 124/70 98 Nasal 2.0L Cannula 04/12 0004 96.3 110 20 147/85 96 Nasal 2.0L Cannula 04/12 0000 97.8 109 20 124/70 04/11 2218 97.5 113 20 159/91 95 Nasal 2.0L Cannula 04/11 1912 97 Nasal 2.0L Cannula 04/11 1844 99 Room Air 04/11 1843 98.7 93 18 116/82 100 Room Air Intake & Output 04/12 0800 04/12 0000 04/11 1600 Intake Total 240 Output Total Balance 240 Intake, Oral 240 Patient 175 lb 178 lb Weight Physical Exam General Appearance Alert, Oriented X3, Cooperative, No Acute Distress HEENT Mucous Membr. moist/pink Neck Supple Cardiovascular tachycardia Lungs Clear to Auscultation, Normal Air Movement Abdomen Normal Bowel Sounds, Soft, No Tenderness Neurological Normal Speech, Strength at 5/5 X4 Ext, Sensation Intact, Cranial Nerves 3-12 NL Extremities No Edema, Normal Pulses Last 24 Hrs of Labs/[place]: Laboratory Tests 04/11/162004: pH 7.57 H, pCO2 21 L, pO2 121 H, HCO3 19 L, ABG O2 Sat (Measured) 98.0, P-50 (Temp Corrected) N, Carboxyhemoglobin 0.2 L, O2 Concentration % 1.5L, Temperature 98.7, O2 Delivery Method NC, Phlebotomy Draw Site RIGHT RADIAL 04/11/161939: Anion Gap 18 H, Estimated GFR > 60, BUN/Creatinine Ratio 15.6, Glucose 125 H, Calcium 9.3, Total Bilirubin 1.2, AST 37, ALT 28, Alkaline Phosphatase 102, Troponin I < 0.01, Ble-V-Rvzzhekdffp Pept 94.3, Total Protein 7.8, Albumin 4.2, Globulin 3.6, Albumin/Globulin Ratio 1.2, CBC w Diff NO MAN DIFF REQ, RBC 4.22 L, MCV 96.4 H, MCH 32.6 H, RDW 15.6 H, MPV 6.0 L, Gran % 73.8, Lymphocytes % 16.7 L, Monocytes % 9.0, Eosinophils % 0.2, Basophils % 0.3, Absolute Granulocytes 5.9, Absolute Lymphocytes 1.3, Absolute Monocytes 0.7 H, Absolute Eosinophils 0, Absolute Basophils 0, PUBS MCHC 33.8, Serum Alcohol 91.0 Microbiology 04/12 139 LOWER RESP: Respiratory Culture - ORD 04/12 139 LOWER RESP: Gram Stain - ORD Diagnostic Data EKG Results Sinus tachycardia. 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 difficile, history of alcohol abuse. He was recently here at [facility] for acute on chronic hypoxic respiratory failure secondary to COPD exacerbation. He was also found to have cholelithiasis and choledocholithiasis and got ERCP. His oxygen saturation remained 96-99% on 2 L that is his baseline. In ER he was given nebulization treatment, Solu-Medrol 125 mg IV 1 and lorazepam 1 mg IV 1. Problem list 1. Worsening shortness of breath. Seems less likely secondary to COPD exacerbation. Could be due to anxiety/panic attack because patient oxygen requirement did not increase as he was saturating well on his baseline and his dyspnea improved after getting IV Ativan. 2. History of alcohol abuse. Serum alcohol 91. 3. History of obstructive and restrictive lung disease. 4. History of 5 mm lung nodule Plan We will admit patient to general medicine floor. Vitals every shift. Continue supplemental oxygen and keep oxygen saturation more than 92%. Patient is already on his baseline. Will check oxygen saturation on ambulation. We will give patient a quick taper of steroids. Sputum cultures. If respiratory status worsens then we can obtain Pulm consult. Continue TRC nebs. We will put patient on CIWA protocol and IV Ativan as needed per CIWA. Continue multivitamins, folate and thiamine. Pain management pathway. Regular diet. Subcutaneous Lovenox for DVT prophylaxis. Full code. As Ranked By This Provider Problem List: 1. Dyspnea Core Measures/Miscellaneous Acute Coronary Syndrome ACS Diagnosis: No Cerebrovascular Accident CVA/TIA Diagnosis: No Congestive Heart Failure CHF Diagnosis: No Venous Thromboembolism VTE Risk Factors: Acute medical illness, Age > 40 VTE Prophylaxis Ordered Inpt: Pharm- [facility]ovenox [facility] prophylaxis d/t: No contraindications No VTE Pharm Prophylaxis d/t: No contraindications VTE Diagnosis: No VTE Type: NONE VTE Confirmed by (Test): NONE Severe Sepsis Severe Sepsis Present: No Septic Shock Septic Shock Present: No Miscellaneous Documentation Attending Case Discussed With: ELISHA AMATO MD Primary Care Physician: JAI MAHONEY APRN Patient sees these Specialists none Level of Patient Care: General Medicine FARZAD AMATO MD 04/12/16 0621: Attending MD Review Statement Attending Statement Attending MD Statement: examined this patient, discuss w/resident/PA/BOILER COVERER, agreed w/resident/PA/BOILER COVERER Attending Assessment/Plan: 75 yo M with h/o COPD (obstructive and restrictive lung disease) on PRN 2L O2, HTN, Afib not on AC, TB s/p RUL resection, who is followed at the [facility], last admitted to [facility] (03/26 03/31) treated for choledocholithaisis s/p ERCP with spincterotomy and stone extraction and mild COPDE, comes back for weakness and sudden onset shortness of breath with chronic productive cough. He has a h/o alcohol dependence, and reports his last drink was 2 weeks back. He denies fever /chills, nausea, vomiting, abdominal pain or diarrhea. On ER evaluation, patient was SOB at rest, with use of accessory muscles. He received nebs with no improvement. ABG showed respiratory alkalosis. He also received IV steroids for minimal wheezing. He was medicated with ativan and was noted to be less distressed. I had a feeling that he is not reporting his alcohol intake accurately. Alcohol level was added which was 91. Vitals are stable except for tachycardia 100-110's, trop neg, alcohol 91. AB.57/21/121/19. EKG: Sinus tachycardia, PVC's, Qtc 461. CXR nothing acute. 1. Chronic hypoxic respiratory failure with some decompensation ?COPDE ?anxiety. Maintaining sats on 2L, TRC nebs, sputum culture, rapid taper of prednisone 30- 20-10, Pulm consult (Dr. Streeter). 2. Alcohol dependence. Monitor CIWA and provide IV ativan per CIWA. Banana bag daily. 3. Weakness, deconditioning, macrocytic anemia. Check TSH, B12, folic acid and vit D. PT eval. DVT ppx Lovenox. Full code.
--- NOTE | 2016-04-12 05:13 | PN- Housestaff ---
LIONEL AU,AILYN 04/12/16 0512: Subjective Follow-up For: COPD exacerbation Subjective: complains of being weak and worseing shortness of breath. Review of Systems Constitutional: Reports: see HPI. Objective Last 24 Hrs of Vital Signs/I&O Vital Signs Date Time Temp Pulse Resp B/P Pulse O2 O2 Flow FiO2 Ox Delivery Rate 04/12 0823 Nasal 2.0L Cannula 04/12 0705 99.1 101 20 146/84 98 Nasal 2.0L Cannula 04/12 0100 97 Nasal 2.0L Cannula 04/12 0029 97.8 109 20 124/70 98 Nasal 2.0L Cannula 04/12 0004 96.3 110 20 147/85 96 Nasal 2.0L Cannula 04/12 0000 97.8 109 20 124/70 04/11 2218 97.5 113 20 159/91 95 Nasal 2.0L Cannula 04/11 1912 97 Nasal 2.0L Cannula 04/11 1844 99 Room Air 04/11 1843 98.7 93 18 116/82 100 Room Air Intake & Output 04/12 1600 04/12 0800 04/12 0000 Intake Total 240 240 Output Total 275 Balance -35 240 Intake, Oral 240 240 Number 1 Bowel Movements Output, Urine 275 Patient 175 lb 178 lb Weight Physical Exam General Appearance: Alert, Oriented X3 Cardiovascular: Normal S1, Normal S2 Lungs: b/l decreased airway entrya and shortness of breath Assessment/Plan Assessment: 75-year-old male with a past medical history of COPD on 2 L of oxygen, history of active tuberculosis treated 25 years back status post partial pneumonectomy presented to the [facility] with worsening shortness of breath persisted weakness. Assessment 1. COPD exacerbation vs Restrictive lung disease 2. Persistent weakness and lethargic 3. History of restrictive lung disease in the setting of previous tuberculosis and mild pulmonary fibrosis. He also has pleural plaques bilaterally. 4. 5 mm lung nodule which will require a 1 year follow-up CT scan. 5. Prior history of alcohol abuse 6. Proximal atrial fibrillation, not on anticoagulation. Plan 1. The general medicine floor AV start the patient on by mouth prednisone 40 mg and then stop in 4 days without the taper PT evaluation to help in deciding the final disposition Continue with oxygen supplementation currently requiring the baseline oxygen requirement of 2 L at home The patient needs follow-up CAT scan for his [address] Gwoda will evluate the patient today DVT prophylaxis at all times Patient is full code Problem List: 1. COPD exacerbation 2. Failure to thrive Pain Ratin Pain Location: alll over Pain Goal: Remain pain free Pain Plan: po tylelnol Tomorrow's Labs & Rationales: none REBECCA MAZARIEGOS MD 04/12/16 1452: Attending MD Review Statement Attending Statement Attending MD Statement: examined this patient, discuss w/resident/PA/LAUNDRY SUPERINTENDENT, agreed w/resident/PA/LAUNDRY SUPERINTENDENT, reviewed EMR data (avail), discussed with nursing, amended to note Attending Assessment/Plan: The patient was seen and discussed with house staff. Appreciate pulmonary input. Note: Patient's PCP is Dr. Tutu Cortez at [facility] (not [facility] listed on chart). I called admitting to correct.
--- NOTE | 2016-04-12 06:12 | Admission Certification ---
Admission Certification Certification Statement - As attending physician, I certify that at the time of - admission, based on clinical presentation, severity of - symptoms, need for further diagnostic testing and - therapeutic interventions, and risk of adverse outcomes - without in-hospital treatment, in my clinical assessment, - this patient requires an acute hospital stay for a minimum - of two nights or longer. I have also considered psychsocial - factors such as support system, advanced age, financial - issues, cognitive issues, and failed out-patient treatments, - past re-admission history, safety of patient, and lack of - compliance as applicable. Specific rationale supporting this admission is: Chronic hypoxic respiratory failure, COPD exacerbation and alcohol dependence.
--- NOTE | 2016-04-12 14:07 | Cons- Pulmonary ---
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 difficile, history of alcohol abuse. He was recently here at [facility] for acute on chronic hypoxic respiratory failure secondary to COPD exacerbation. He was also found to have cholelithiasis and choledocholithiasis and got ERCP. He presented to ER with complaint of worsening of shortness of breath started last night. He has chronic productive cough. According to patient even minimal exertion was making him very short of breath. He denies any fever, chills, chest pain or discomfort, palpitations, chest congestion, wheezing, dizziness or lightheadedness, leg swelling. He also denies any nausea, vomiting, abdominal pain, any changes in urinary or bowel habits. His former smoker. Drinks half pain to vodka once a week per patient. Denies use of recreational drugs. He lives alone. Allergies/Medications Allergies: Coded Allergies: NO KNOWN ALLERGIES (04/07/15) Home Med List: Albuterol Sulfate (Proair Hfa) 90 MCG HFA.AER.AD 2 PUF INH Q4-6 PRN PRN COPD (Reported) Albuterol Sulfate 2.5 MG/3 ML (0.083 %) VIAL.NEB 1 Vial INH/KARTHIKEYAN PRN COPD ( Reported) Aspirin (Ecotrin*) 81 MG TABLET.DR 1 TAB PO DAILY HEART/BLOOD (Reported) Folic Acid 1 MG TABLET 1 MG PO DAILY supplement Multivitamin (One Daily Multivitamin) 1 EACH TABLET 1 TAB PO DAILY supplement Thiamine HCl (Vitamin B-1) 100 MG TABLET 100 MG PO DAILY supplement Tiotropium [place] (Spiriva) 18 MCG CAP.W.DEV 1 CAP INH DAILY COPD (Reported) Review of Systems Review of Systems Constitutional: Reports: see HPI. 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 MOTHER, , Age 93; Cause: Old age. SON, , Age 50-60. Relation not specified for: FH: myocardial infarction Psychosocial History Where Do You Live? Home Who Do You Live With? self Services at Home: Oxygen Primary Language: Samoan Smoking Status: Former Smoker ETOH Use: denies use Illicit Drug Use: denies illicit drug use Living Will? no Power of Transfusion Aide/HCP? no Functional Ability ADLs Independent: dressing, eating, toileting, bathing. Ambulation: independent IADLs Independent: shopping, housework, finances, food prep, telephone, transportation , medication admin. Exam & Diagnostic Data Last 24 Hrs of Vital Signs/I&O Vital Signs Date Time Temp Pulse Resp B/P Pulse O2 O2 Flow FiO2 Ox Delivery Rate 04/12 1357 98.2 99 20 150/70 97 Room Air 04/12 0823 Nasal 2.0L Cannula 04/12 0800 Nasal 2.0L Cannula 04/12 0705 99.1 101 20 146/84 98 Nasal 2.0L Cannula 04/12 0100 97 Nasal 2.0L Cannula 04/12 0029 97.8 109 20 124/70 98 Nasal 2.0L Cannula 04/12 0004 96.3 110 20 147/85 96 Nasal 2.0L Cannula 04/12 0000 97.8 109 20 124/70 04/11 2218 97.5 113 20 159/91 95 Nasal 2.0L Cannula 04/11 1912 97 Nasal 2.0L Cannula 04/11 1844 99 Room Air 04/11 1843 98.7 93 18 116/82 100 Room Air Intake & Output 04/12 1600 04/12 0800 04/12 0000 Intake Total 240 240 Output Total 275 Balance -35 240 Intake, Oral 240 240 Number 1 Bowel Movements Output, Urine 275 Patient 175 lb 178 lb Weight Last 48 Hrs of Labs/[place]: Laboratory Tests 04/12/16 1200: Methadone Screen Pending, Barbiturate Screen Pending, Ur Phencyclidine Scrn Pending, Amphetamines Screen Pending, U Benzodiazepines Scrn Pending, Urine Cocaine Screen Pending, Urine Cannabis Screen Pending 04/11/162004: pH 7.57 H, pCO2 21 L, pO2 121 H, HCO3 19 L, ABG O2 Sat (Measured) 98.0, P-50 (Temp Corrected) N, Carboxyhemoglobin 0.2 L, O2 Concentration % 1.5L, Temperature 98.7, O2 Delivery Method NC, Phlebotomy Draw Site RIGHT RADIAL 04/11/161939: Anion Gap 18 H, Estimated GFR > 60, BUN/Creatinine Ratio 15.6, Glucose 125 H, Calcium 9.3, Total Bilirubin 1.2, AST 37, ALT 28, Alkaline Phosphatase 102, Troponin I < 0.01, Pst-G-Vqgolvyptjr Pept 94.3, Total Protein 7.8, Albumin 4.2, Globulin 3.6, Albumin/Globulin Ratio 1.2, Cortisol PM Sample 18.7 H, CBC w Diff NO MAN DIFF REQ, RBC 4.22 L, MCV 96.4 H, MCH 32.6 H, RDW 15.6 H, MPV 6.0 L, Gran % 73.8, Lymphocytes % 16.7 L, Monocytes % 9.0, Eosinophils % 0.2, Basophils % 0.3, Absolute Granulocytes 5.9, Absolute Lymphocytes 1.3, Absolute Monocytes 0.7 H, Absolute Eosinophils 0, Absolute Basophils 0, PUBS MCHC 33.8, Serum Alcohol 91.0 Assessment/Plan Impression/Plan: SIGNIFICANT DATA Chest x-ray showed multiple chronic changes no acute Previous MRI of the abdomen reviewed Lateral work showed initial anion gap of 18 his alcohol level was elevated and his p.m. cortisol level was normal white count was 8000 with no significant left shift hemoglobin of 13.8 ABG reviewed which showed he is more alkalotic with a PCO2 of 21 with O2 121 on 1.5 L Is now saturating well on room air IMPRESSION This is a 75-year-old gentleman who is followed at [facility], 30-pack- year smoking history quit in 1989, significant chronic obstructive and restrictive lung disease with previous history of tuberculosis with surgery done in early in the right upper lobe with status post anti-TB treatment, previous history of moderate alcohol use now with ongoing etoh use, history of paroxysmal atrial fibrillation not on anticoagulation, hypertension, previous history of C. difficile, cholelithiasis now with choledocholitiasis s/p ercp and removal of stone with no biliary sepsis at that time, anxiety and depression, previous history of asbestos exposure by his CT findings now comes in with * Shortness of breath which seems to have rapidly resolved in a gentleman with both obstructive and restrictive lung disease, may have been worsened by anxiety and etoh use with no clinical evidence of bacterial bronchitis. He does have evidence of ACOPDE * He has clinically moderate to severe COPD with significant restriction as well due to previous tuberculosis and mild pulmonary fibrosis. He also has restrictive lung disease with significant pleural plaque bilaterally, the pleural plaques appears to be more in the basal area probably related to pleurisy he may have had from tuberculosis. Asbestos related pleural plaque is a possibility but maybe less likely. * 5 mm lung nodule stable with one-year follow-up CT * Choledocholithiasis with elevated bilirubin recently now resolved with ercp * History of alcohol use patient, Hence immunosuppressed * Proximal atrial fibrillation not on anticoagulation * Remote history of tuberculosis with right upper lobe surgery probably segmentectomy with chronic lung disease with bronchiectasis with no evidence suggestive of active TB recurrence * Chronic lung disease and patient is on oxygen on and off as needed depending on his O2 sat his room air sat has been good * Chronic hypomagnesemia probably related to GI loss. * Glucose intolerance with atrophic pancreas with previous history of alcoholic use * Previous history of C. difficile RECOMMENDATION * As he is not significantly wheezing reduce prednisone to 30 mg and wean off in three days * [id number] nebulizer therapy with ipratropium and albuterol if needed for wheezing * Start spiriva in am * Start him on Flovent 222 puffs twice a day * Sputum culture * Dc abx for now as he has had cdiff * Mag replacement * Watch for alcohol withdrawal * Recheck labs this pm to eval anion gap etc * Banana bag if not already given Consult Acknowledgment - Thank you for your consult request.
[2016-04-13 07:01] VITALS: BP 122/76
--- NOTE | 2016-04-13 08:23 | PN- Housestaff ---
CARLY AU,TUSHAR 04/13/16 0823: Subjective Follow-up For: COPD exacerbation Complaints: no complaints Subjective: I saw and examined the patient today morning. He is doing much better, refusing alps and lovenox. Over all improves, but still had cough with shortness of breath. Currently on 2L of oxygen which appears to be his baseline. Able to walk to the rest room (with a walker). Otherwise feels better. No chest pain, nausea, vomiting, fever, chills. Review of Systems Constitutional: Reports: see HPI. Comments: ROS negative except the above. Objective Last 24 Hrs of Vital Signs/I&O Vital Signs Date Time Temp Pulse Resp B/P Pulse O2 O2 Flow FiO2 Ox Delivery Rate 04/13 0701 98.6 98 18 122/76 97 Room Air 04/13 0000 Nasal 3.0L Cannula 04/12 2245 99.0 72 20 140/80 95 04/12 2039 96 Nasal 2.0L Cannula 04/12 1947 105 20 04/12 1741 98.7 109 22 148/88 96 04/12 1600 Nasal 2.0L Cannula 04/12 1600 98.2 99 20 150/70 04/12 1357 98.2 99 20 150/70 97 Room Air Intake & Output 04/13 1600 04/13 0800 04/13 0000 Intake Total 100 600 Output Total 400 Balance -300 600 Intake, IV 500 Intake, Oral 100 100 Output, Urine 400 Physical Exam General Appearance: Alert, Oriented X3, Cooperative, No Acute Distress Skin: No Rashes, No Breakdown HEENT: Atraumatic, PERRLA, EOMI Neck: Supple Cardiovascular: Regular Rate, Normal S1, Normal S2, No Murmurs Lungs: Clear to Auscultation, Normal Air Movement Abdomen: Normal Bowel Sounds, Soft, No Tenderness Neurological: Normal Gait, Normal Speech, Normal Tone Extremities: No Clubbing, No Cyanosis, scant edema over both the feet. Vascular: Pulses Symmetrical Current Medications: Current Medications Sig/Ade Start time Last Medication Dose Route Stop Time Status Admin Acetaminophen 650 MG Q6P PRN 04/12 0145 AC PO Albuterol Sulfate 3 ML BID 04/12 1000 AC 04/13 INH 1439 Albuterol Sulfate 3 ML Q4 HRS NEEDED PRN 04/12 0145 AC INH Aspirin Buffered 81 MG DAILY 04/12 1000 AC 04/13 PO 0812 Cyanocobalamin/ 1 BAG ONCE ONE 04/12 1500 DC 04/12 Thiamine/Pyridoxine IV 04/12 2259 1841 Dextrose/Water 1,000 ML Enoxaparin Sodium 40 MG DAILY 04/12 1000 AC 04/12 SC 0925 Fluticasone 2 PUF BID 04/12 1446 AC 04/13 Propionate INH 0814 Folic Acid 1 MG DAILY 04/12 1000 AC 04/13 PO 0812 Ipratropium [place] 2.5 ML BID 04/12 1000 AC 04/13 INH 1439 Ipratropium [place] 2.5 ML Q4 HRS NEEDED PRN 04/12 0200 AC INH Lorazepam 0.5 MG TID PRN 04/12 0815 AC PO 04/19 0814 Melatonin 5 MG AT BEDTIME 04/13 2200 UNVr PO Multivitamins 1 TAB DAILY 04/12 1000 AC 04/13 Therapeutic PO 0812 Prednisone 30 MG DAILY 04/13 1000 AC 04/13 PO 04/15 1001 0812 Thiamine HCl 100 MG DAILY 04/12 1000 AC 04/13 PO 0812 Tiotropium [place] 1 PUF DAILY 04/12 1000 AC 04/13 INH 1148 Last 24 Hrs of Lab/[place] Results Last 24 Hrs of Labs/Mics: Microbiology 04/12 1722 LOWER RESP: Respiratory Culture - CAN Cancelled: SPECIMEN NOT RECEIVED IN LABORATORY 04/12 172 LOWER RESP: Gram Stain - CAN Cancelled: SPECIMEN NOT RECEIVED IN LABORATORY Lines/Diet/Fluids Lines: peripheral lines Assessment/Plan Assessment: 75-year-old male with a past medical history of COPD on 2 L of oxygen, 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 Assessment 1. COPD exacerbation vs Restrictive lung disease 2. Persistent weakness and lethargic 3. History of restrictive lung disease in the setting of previous tuberculosis and mild pulmonary fibrosis. He also has pleural plaques bilaterally. 4. 5 mm lung nodule which will require a 1 year follow-up CT scan. 5. Prior history of alcohol abuse 6. Proximal atrial fibrillation, not on anticoagulation. Plan 1. The general medicine floor 2. On by mouth prednisone 30 mg till . 3. PT evaluation - suggested STR 4. Continue with oxygen supplementation currently requiring the baseline 2 L at home 5. The patient needs follow-up CAT scan for his 5 mm lung nodule 6. Dr. Streeter will evluate the patient today 7. DVT prophylaxis SC lovenox Patient is full code Problem List: 1. COPD exacerbation 2. Failure to thrive Pain Ratin Pain Location: n/a Pain Goal: Pain 4 or less Pain Plan: Tylenol PRN Tomorrow's Labs & Rationales: NONE BING AU,MANCERA 04/13/16 1339: Attending MD Review Statement Attending Statement Attending MD Statement: examined this patient, discuss w/resident/PA/SALVAGE MEND WORKER, agreed w/resident/PA/SALVAGE MEND WORKER, reviewed EMR data (avail), discussed with nursing, reviewed images, amended to note Attending Assessment/Plan: Patient with a history of both obstructive and restrictive take lung disease is being admitted with COPD exacerbation. Pulmonology is on board. Please follow- up the recommendations from pulmonology and wean off the prednisone in 2 days by giving 20 mg tomorrow and 10 mg on Friday.
--- NOTE | 2016-04-13 13:46 | PN- Pulmonary ---
Subjective HPI/Critical Care Issues: pt seen and examined 97% room air oximetry afebrile feeling better still with dyspnea however no n/v/d/c Objective Current Medications: Current Medications Sig/Ade Start time Last Medication Dose Route Stop Time Status Admin Acetaminophen 650 MG Q6P PRN 04/12 0145 AC PO Albuterol Sulfate 3 ML BID 04/12 1000 AC 04/12 INH 1907 Albuterol Sulfate 3 ML Q4 HRS NEEDED PRN 04/12 0145 AC INH Aspirin Buffered 81 MG DAILY 04/12 1000 AC 04/13 PO 0812 Azithromycin 500 MG DAILY 04/12 1000 DC 04/12 PO 1056 Cyanocobalamin/ 1 BAG ONCE ONE 04/12 1500 DC 04/12 Thiamine/Pyridoxine IV 04/12 2259 1841 Dextrose/Water 1,000 ML Enoxaparin Sodium 40 MG DAILY 04/12 1000 AC 04/12 SC 0925 Fluticasone 2 PUF BID 04/12 1446 AC 04/13 Propionate INH 0814 Folic Acid 1 MG DAILY 04/12 1000 AC 04/13 PO 0812 Ipratropium [place] 2.5 ML BID 04/12 1000 AC 04/12 INH 1905 Ipratropium [place] 2.5 ML Q4 HRS NEEDED PRN 04/12 0200 AC INH Lorazepam 0.5 MG TID PRN 04/12 0815 AC PO 04/19 0814 Multivitamins 1 TAB DAILY 04/12 1000 AC 04/13 Therapeutic PO 0812 Patient Medication 1 ED .STK-MED ONE 04/12 1356 [place] [facility] 04/12 1357 Prednisone 30 MG DAILY 04/13 1000 AC 04/13 PO 04/15 1001 0812 Prednisone 40 MG DAILY 04/12 1000 DC 04/12 PO 1057 Thiamine HCl 100 MG DAILY 04/12 1000 AC 04/13 PO 0812 Tiotropium [place] 1 PUF DAILY 04/12 1000 AC 04/13 INH 1148 Vital Signs & I&O Last 24 Hrs of Vitals and I&O: Vital Signs Date Time Temp Pulse Resp B/P Pulse O2 O2 Flow FiO2 Ox Delivery Rate 04/13 0800 97 04/13 0701 98.6 98 18 122/76 97 Room Air 04/13 0000 Nasal 3.0L Cannula 04/12 2244 99.0 72 20 140/80 95 04/129 96 Nasal 2.0L Cannula 04/12 1947 105 20 04/12 1741 98.7 109 22 148/88 96 04/12 1600 Nasal 2.0L Cannula 04/12 1600 98.2 99 20 150/70 04/12 1357 98.2 99 20 150/70 97 Room Air Intake & Output 04/13 1600 04/13 0800 04/13 0000 Intake Total 100 600 Output Total 400 Balance -300 600 Intake, IV 500 Intake, Oral 100 100 Output, Urine 400 Exam Other Physical Findings: Gen awake and alert Heent ncat Cvs s1, s2 Lungs rare rhonchi Abd soft, bs+ Ext without edema Impression/Plan Impression/Plan Impression/Plan: Impression 75 year old man - COPD exacerbation, possibly bronchitis - hx of TB - restrictive lung disease - lung nodule Plan - steroid taper as ordered - trc/nebs - inhalers as recommended by Dr. Streeter - f/u sputum cx DVT prophylaxis at all times
[2016-04-13 14:50] VITALS: BP 122/80
[2016-04-13 16:00] VITALS: BP 122/80
[2016-04-13 18:13] VITALS: BP 130/80
[2016-04-13 20:00] VITALS: BP 130/80
[2016-04-13 22:02] VITALS: BP 134/70
[2016-04-14 06:50] VITALS: BP 136/74
--- NOTE | 2016-04-14 09:17 | PN- Housestaff ---
See Addendum Subjective Follow-up For: Shortness of breath 2/2 to COPD Hx ETOH Abuse/dependence Complaints: mild exertional shortness of breath Subjective: Patient was visited and examined this morning. Shortness of breath has improved. He is not in respiratory distress not wearing oxygen at the moment using full sentences. Patient mentions that as of breath with slight exertion. His weakness and dehydration, subjectively, improved. Vital signs reviewed. No incident overnight. Review of Systems Constitutional: Reports: weakness. Denies: chills, diaphoresis, fever, malaise, unexplained weight loss. EENTM: Reports: see HPI. Denies: blurred vision, double vision, visual changes, eye pain, eye drainage, eye tearing, icterus, ear discharge, ear pain, ear redness, hearing changes, nasal congestion, epistaxis, nasal pain, throat pain, throat swelling, mouth pain, tooth pain. Cardiovascular: Reports: see HPI. Denies: no symptoms, chest pain, edema, orthopena, palpitations, peripheral edema, syncope. Respiratory: Reports: see HPI. Gastrointestinal: Reports: see HPI. Denies: abdominal pain, bloating, constipation, diarrhea, distention, bowel incontinence, melena, nausea, bloody stool, changes in stool, vomiting, steatorrhea. Genitourinary: Reports: see HPI. Denies: discharge, dysuria, frequency, hematuria, hesitation, nocturia, pain, urgency. Musculoskeletal: Denies: back pain, gout, joint pain, joint swelling, muscle pain, muscle stiffness, neck pain. Skin: Denies: cysts, change in skin color, change in hair/nails, dryness, erythema, jaundice, lesions, lymphangitis, lumps, moles, rash. Objective Last 24 Hrs of Vital Signs/I&O Vital Signs Date Time Temp Pulse Resp B/P Pulse O2 O2 Flow FiO2 Ox Delivery Rate 04/14 0650 98.4 80 18 136/74 97 Room Air 04/14 0000 98 Room Air 04/132 97.9 84 20 134/70 99 Room Air 04/13 2120 98 Room Air 04/13 1999 98.6 103 20 130/80 04/13 1838 103 04/13 1813 98.6 114 20 130/80 96 Room Air 04/13 1600 Nasal 2.0L Cannula 04/13 1600 97.6 98 20 122/80 04/13 1450 97.6 98 20 122/80 98 Room Air 04/13 1442 99 Nasal 2.0L Cannula Intake & Output 04/14 1600 04/14 0800 04/14 0000 Intake Total 120 450 Output Total Balance 120 450 Intake, Oral 120 450 Number 0 Bowel Movements Physical Exam General Appearance: Alert, Oriented X3, No Acute Distress Skin: No Rashes, No Breakdown, No Significant Lesion HEENT: mucous membranes are dry Neck: Supple Lymphatic: Axillary nl, Cervical nl Cardiovascular: Regular Rate, Normal S1, Normal S2, No Murmurs, Gallops, Rubs Lungs: Clear to Auscultation, Normal Air Movement, prolonged expiration, no wheezing Abdomen: Soft, No Tenderness Neurological: Normal Gait, Normal Speech Extremities: No Edema, Normal Pulses Current Medications: Current Medications Sig/Ade Start time Last Medication Dose Route Stop Time Status Admin Acetaminophen 650 MG Q6P PRN 04/12 0145 AC PO Albuterol Sulfate 3 ML BID 04/12 1000 AC 04/13 INH 2122 Albuterol Sulfate 3 ML Q4 HRS NEEDED PRN 04/12 0145 AC INH Aspirin Buffered 81 MG DAILY 04/12 1000 AC 04/14 PO 0948 Enoxaparin Sodium 40 MG DAILY 04/12 1000 AC 04/12 SC 0925 Fluticasone 2 PUF BID 04/12 1446 AC 04/14 Propionate INH 0948 Folic Acid 1 MG DAILY 04/12 1000 AC 04/14 PO 0947 Ipratropium [place] 2.5 ML BID 04/12 1000 AC 04/13 INH 2122 Ipratropium [place] 2.5 ML Q4 HRS NEEDED PRN 04/12 0200 AC INH Lorazepam 0.5 MG TID PRN 04/12 0815 AC PO 04/19 0814 Melatonin 5 MG AT BEDTIME 04/13 2200 AC 04/13 PO 2113 Multivitamins 1 TAB DAILY 04/12 1000 AC 04/14 Therapeutic PO 0948 Prednisone 10 MG DAILY 04/15 1000 AC 04/14 PO 04/15 1001 0947 Prednisone 20 MG DAILY 04/14 1000 AC 04/14 PO 04/14 1001 0948 Prednisone 20 MG ONCE 04/13 1830 DC PO 04/15 1829 Prednisone 30 MG DAILY 04/13 1000 DC 04/13 PO 04/15 1001 0812 Thiamine HCl 100 MG DAILY 04/12 1000 AC 04/14 PO 0948 Tiotropium [place] 1 PUF DAILY 04/12 1000 AC 04/14 INH 0948 Assessment/Plan Assessment: 75-year-old male with a past medical history of COPD on 2 L of oxygen, 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 Assessment 1. COPD exacerbation vs Restrictive lung disease 2. Persistent weakness and lethargic 3. History of restrictive lung disease in the setting of previous tuberculosis and mild pulmonary fibrosis. He also has pleural plaques bilaterally. 4. 5 mm lung nodule which will require a 1 year follow-up CT scan. 5. Prior history of alcohol abuse 6. Proximal atrial fibrillation, not on anticoagulation. Plan 1. The general medicine floor-possible discharge 2. On by mouth prednisone 30 mg till . 3. PT evaluation - suggested STR 4. Oxygen as needed for exertion-on home oxygen 2 L when necessary and for exertion 5. The patient needs follow-up CAT scan for his 5 mm lung nodule 6. Ativan 0.5 mg by mouth 3 times a day, Ativan 1 mg IV every hour per CIWA protocol 7. DVT prophylaxis SC lovenox Patient is full code Problem List: 1. Alcohol drinker 2. COPD exacerbation Pain Ratin Pain Location: Back Pain Goal: Pain 4 or less Pain Plan: Tylenol 650 every 6 as needed Tomorrow's Labs & Rationales: No labs for tomorrow Discharge Plan Discharge Disposition: STR/NH Stable for Discharge? Yes Anticipated Discharge (Day): tomorrow
--- NOTE | 2016-04-14 13:41 | PN- Pulmonary ---
Subjective HPI/Critical Care Issues: pt seen and examined improved significantly feels better afebrile 98% room air oximetry Objective Current Medications: Current Medications Sig/Ade Start time Last Medication Dose Route Stop Time Status Admin Acetaminophen 650 MG Q6P PRN 04/12 0145 AC PO Albuterol Sulfate 3 ML BID 04/12 1000 AC 04/13 INH 2122 Albuterol Sulfate 3 ML Q4 HRS NEEDED PRN 04/12 0145 AC INH Aspirin Buffered 81 MG DAILY 04/12 1000 AC 04/14 PO 0948 Enoxaparin Sodium 40 MG DAILY 04/12 1000 AC 04/12 SC 0925 Fluticasone 2 PUF BID 04/12 1446 AC 04/14 Propionate INH 0948 Folic Acid 1 MG DAILY 04/12 1000 AC 04/14 PO 0947 Ipratropium [place] 2.5 ML BID 04/12 1000 AC 04/13 INH 2122 Ipratropium [place] 2.5 ML Q4 HRS NEEDED PRN 04/12 0200 AC INH Lorazepam 0.5 MG TID PRN 04/12 0815 AC PO 04/19 0814 Melatonin 5 MG AT BEDTIME 04/13 2200 AC 04/13 PO 2113 Multivitamins 1 TAB DAILY 04/12 1000 AC 04/14 Therapeutic PO 0948 Prednisone 10 MG DAILY 04/15 1000 AC 04/14 PO 04/15 1001 0947 Prednisone 20 MG DAILY 04/14 1000 DC 04/14 PO 04/14 1001 0948 Prednisone 20 MG ONCE 04/13 1830 DC PO 04/15 1829 Prednisone 30 MG DAILY 04/13 1000 DC 04/13 PO 04/15 1001 0812 Thiamine HCl 100 MG DAILY 04/12 1000 AC 04/14 PO 0948 Tiotropium [place] 1 PUF DAILY 04/12 1000 AC 04/14 INH 0948 Vital Signs & I&O Last 24 Hrs of Vitals and I&O: Vital Signs Date Time Temp Pulse Resp B/P Pulse O2 O2 Flow FiO2 Ox Delivery Rate 04/14 1141 98 Room Air Room Air 04/14 0650 98.4 80 18 136/74 97 Room Air 04/14 0000 98 Room Air 04/13 2201 97.9 84 20 134/70 99 Room Air 04/13 2120 98 Room Air 04/13 2000 98.6 103 20 130/80 04/13 1838 103 04/13 1813 98.6 114 20 130/80 96 Room Air 04/13 1600 Nasal 2.0L Cannula 04/13 1600 97.6 98 20 122/80 04/13 1450 97.6 98 20 122/80 98 Room Air 04/13 1442 99 Nasal 2.0L Cannula Intake & Output 04/14 1600 04/14 0800 04/14 0000 Intake Total 600 120 450 Output Total Balance 600 120 450 Intake, Oral 600 120 450 Number 2 0 Bowel Movements Exam Other Physical Findings: Gen awake and alert Heent ncat Cvs s1, s2 Lungs rare rhonchi Abd soft, bs+ Ext without edema Impression/Plan Impression/Plan Impression/Plan: Impression 75 year old man - COPD exacerbation, possibly bronchitis - hx of TB - restrictive lung disease - lung nodule Plan - steroid taper as ordered - trc/nebs - inhalers as recommended by Dr. Streeter - f/u sputum cx DVT prophylaxis at all times
[2016-04-14 15:40] VITALS: BP 110/70
--- NOTE | 2016-04-14 21:17 | Discharge Summary ---
See Addendum Visit Information Visit Dates Admission Date: 04/11/16 Discharge Date: 04/15/16 Hospital Course Course Attending Physician: CLEVELAND AMATO MDElliot Primary Care Physician: MARU AU,[facility] Course: 75 yo M with h/o COPD (obstructive and restrictive lung disease) on PRN 2L O2, HTN, Afib not on AC, TB s/p RUL resection, who is followed at the [facility], presented with weakness and sudden onset shortness of breath with chronic productive cough. He has a h/o alcohol dependence, and reports his last drink was 2 weeks back. He denied fever/chills, nausea, vomiting, abdominal pain or diarrhea. On ER evaluation, patient was SOB at rest, with use of accessory muscles. He received nebs with no improvement. ABG showed respiratory alkalosis. He also received IV steroids for minimal wheezing. He was medicated with ativan and was noted to be less distressed. Physical Exam General Appearance Alert, Oriented X3, Cooperative, No Acute Distress HEENT Mucous Membr. moist/pink Neck Supple Cardiovascular tachycardia Lungs Clear to Auscultation, Normal Air Movement Abdomen Normal Bowel Sounds, Soft, No Tenderness Neurological Normal Speech, Strength at 5/5 X4 Ext, Sensation Intact, Cranial Nerves 3-12 NL Extremities No Edema, Normal Pulses Laboratory Tests 04/11/162004: pH 7.57 H, pCO2 21 L, pO2 121 H, HCO3 19 L, ABG O2 Sat (Measured) 98.0, P-50 (Temp Corrected) N, Carboxyhemoglobin 0.2 L, O2 Concentration % 1.5L, Temperature 98.7, O2 Delivery Method NC, Phlebotomy Draw Site RIGHT RADIAL 04/11/161939: Anion Gap 18 H, Estimated GFR > 60, BUN/Creatinine Ratio 15.6, Glucose 125 H, Calcium 9.3, Total Bilirubin 1.2, AST 37, ALT 28, Alkaline Phosphatase 102, Troponin I < 0.01, Ybg-[id number]-Jecnluqvqmo Pept 94.3, Total Protein 7.8, Albumin 4.2, Globulin 3.6, Albumin/Globulin Ratio 1.2, CBC w Diff NO MAN DIFF REQ, RBC 4.22 L, MCV 96.4 H, MCH 32.6 H, RDW 15.6 H, MPV 6.0 L, Gran % 73.8, Lymphocytes % 16.7 L, Monocytes % 9.0, Eosinophils % 0.2, Basophils % 0.3, Absolute Granulocytes 5.9, Absolute Lymphocytes 1.3, Absolute Monocytes 0.7 H, Absolute Eosinophils 0, Absolute Basophils 0, PUBS MCHC 33.8, Serum Alcohol 91.0 The patients was admitted and treated in the hospital for the following problems : 1. Acute Hypoxiac Resp failure secondary Restrictive lung disease 2. Persistent weakness and lethargic 3. History of restrictive lung disease in the setting of previous tuberculosis and mild pulmonary fibrosis. He also has pleural plaques bilaterally. 4. 5 mm lung nodule which will require a 1 year follow-up CT scan. 5. Prior history of alcohol abuse 6. Proximal atrial fibrillation, not on anticoagulation. The patient was treated for the Allergies: Coded Allergies: NO KNOWN ALLERGIES (04/07/15) Disposition Summary Disposition Principal Diagnosis: Acute Hypoxiac respuratory failure Additional Diagnosis: 2. Persistent weakness and lethargic 3. History of restrictive lung disease in the setting of previous tuberculosis and mild pulmonary fibrosis. He also has pleural plaques bilaterally. 4. 5 mm lung nodule which will require a 1 year follow-up CT scan. 5. Prior history of alcohol abuse 6. Proximal atrial fibrillation, not on anticoagulation. Discharge Disposition: SNF Discharge Instructions General Discharge Information Code Status: Full Code Patient's Diet: As tolerated Patient's Activity: Please F/u with your pcp in 1 week Follow-Up Instructions/Appts: F/u with your PCP in1 week Medications at Discharge Discharge Medications: Continue taking these medications: Aspirin (Ecotrin*) 81 MG TABLET.DR 1 Tablet ORAL DAILY Comments: Last Taken: 04/15/16 Time: 0800 Albuterol Sulfate (Proair Hfa) 90 MCG HFA.AER.AD 2 Puff Inhale through mouth EVERY 4-6 HOURS NEEDED as needed for COPD Comments: Last Taken: 03/28/16 Time: 9:00 AM Tiotropium [place] (Spiriva) 18 MCG CAP.W.DEV 1 Capsule Inhale through mouth DAILY Comments: Last Taken: 04/15/16 Time: 0800 Albuterol Sulfate (Albuterol Sulfate) 2.5 MG/3 ML (0.083 %) VIAL.NEB 1 Vial Inhale Solution as needed for COPD Comments: NOT GIVEN IN HOSPITAL Folic Acid (Folic Acid) 1 MG TABLET 1 Milligram ORAL DAILY Days = 30 Comments: Last Taken: 04/15/16 Time: 0800 Multivitamin (One Daily Multivitamin) 1 EACH TABLET 1 Tablet ORAL DAILY Days = 30 Comments: Last Taken: 04/15/16 Time: 0800 Thiamine HCl (Vitamin B-1) 100 MG TABLET 100 Milligram ORAL DAILY Days = 30 Comments: Last Taken: 04/15/16 Time: 0800 Start taking the following new medications: Fluticasone Propionate (Flovent Hfa) 110 MCG/ACTUATION AER.W.ADAP 2 Puff Inhale through mouth TWICE DAILY Qty = 3 No Refills Copies To: DIANA MAHONEY MD Attending MD Review Statement Documenting Attending: REBECCA MAZARIEGOS MD Other Findings: The patient was seen and discussed with house staff. Agree with the plan of care as outlined.
[2016-04-14 23:42] VITALS: BP 124/74
[2016-04-15 06:21] VITALS: BP 122/70
--- NOTE | 2016-04-15 07:27 | PN- Housestaff ---
LIONEL AU,AILYN 04/15/16 0727: Subjective Follow-up For: Acute hypoxic respiratory failure History of restrictive lung disease Subjective: Patient is doing better. Review of Systems Constitutional: Reports: see HPI. Objective Last 24 Hrs of Vital Signs/I&O Vital Signs Date Time Temp Pulse Resp B/P Pulse O2 O2 Flow FiO2 Ox Delivery Rate 04/15 0800 Room Air 04/15 0621 97.8 92 20 122/70 97 Room Air 04/15 0000 Room Air 04/14 2342 98.8 79 20 124/74 96 Room Air 04/14 2035 96 Room Air 04/14 1540 98.6 90 20 110/70 95 04/14 1141 98 Room Air Room Air Intake & Output 04/15 1600 04/15 0800 04/15 0000 Intake Total 100 100 Output Total 300 Balance -200 100 Intake, Oral 100 100 Output, Urine 300 Physical Exam General Appearance: Alert, Oriented X3, Cooperative Skin: No Rashes, No Breakdown HEENT: Atraumatic, PERRLA Neck: Supple, No JVD Lymphatic: Axillary nl, Cervical nl Cardiovascular: Regular Rate, Normal S1, Normal S2 Lungs: DECREASED AIRWAY ENTRY Abdomen: Normal Bowel Sounds, Soft, No Tenderness Assessment/Plan Assessment: 75-year-old male with a past medical history of COPD on 2 L of oxygen, 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 Assessment 1. COPD exacerbation vs Restrictive lung disease 2. Persistent weakness and lethargic 3. History of restrictive lung disease in the setting of previous tuberculosis and mild pulmonary fibrosis. He also has pleural plaques bilaterally. 4. 5 mm lung nodule which will require a 1 year follow-up CT scan. 5. Prior history of alcohol abuse 6. Proximal atrial fibrillation, not on anticoagulation. Plan 1. The general medicine floor-possible discharge 2.Last dose of prednisaone taper today 3. PT evaluation - suggested home 4. Oxygen as needed for exertion-on home oxygen 2 L when necessary and for exertion 5. The patient needs follow-up CAT scan for his 5 mm lung nodule 6. Alcohol absatince advised 7. DVT prophylaxis SC lovenox Patient is full code Problem List: 1. Dyspnea 2. Fatty liver Pain Ratin Pain Location: no sp[ecifc point Pain Goal: Remain pain free Pain Plan: po tylenol as needed Tomorrow's Labs & Rationales: none YAIR AU,REBECCA 04/15/16 1504: Attending MD Review Statement Attending Statement Attending MD Statement: examined this patient, discuss w/resident/PA/PULMONOLOGIST/INTENSIVIST, agreed w/resident/PA/PULMONOLOGIST/INTENSIVIST, reviewed EMR data (avail), discussed with nursing, discussed with case mgmt, amended to note Attending Assessment/Plan: The patient was seen and discussed with house staff. Agree with the plan of care as outlined.
--- NOTE | 2016-04-15 09:55 | Patient Discharge Instructions ---
Discharge Instructions General Discharge Information You were seen/treated for: acute hypoxiac respiratorty failure Special Instructions: please f/u with your pcp in 1week of discharge Acute Coronary Syndrome Inclusion Criteria At DC or during hospital stay patient has or had the following: ACS DIAGNOSIS No Discharge Core Measures Meds if any: Prescribed or Continued at Discharge Meds if any: NOT Prescribed or Continued at Discharge Congestive Heart Failure Inclusion Criteria At DC or during hospital stay patient has or had the following: CHF DIAGNOSIS No Discharge Core Measures Meds if any: Prescribed or Continued at Discharge Meds if any: NOT Prescribed or Continued at Discharge Cerebrovascular accident Inclusion Criteria At DC or during hospital stay patient has or had the following: CVA/TIA Diagnosis No Discharge Core Measures Meds if any: Prescribed or Continued at Discharge Meds if any: NOT Prescribed or Continued at Discharge Venous thromboembolism Inclusion Criteria VTE Diagnosis No VTE Type NONE VTE Confirmed by (Test) NONE Discharge Core Measures - Per Current guidelines, there needs to be overlap - treatment for the first 5 days of Warfarin therapy. - If discharged on Warfarin prior to 5 days of - overlap therapy, the patient will need to be - assessed for post discharge needs including - *Post discharge parental anticoagulation - *Warfarin and/or parental anticoagulation education - *Follow up date to check INR post discharge At least 5 days overlap therapy as Inpatient No Meds if any: Prescribed or Continued at Discharge Note: Overlap Therapy is Warfarin and Anticoagulant Meds if any: NOT Prescribed or Continued at Discharge
--- NOTE | 2016-04-15 10:51 | PN- Pulmonary ---
Subjective HPI/Critical Care Issues: Patient is doing better. No sig complaints Review of Systems Constitutional: Reports: see HPI. Objective Current Medications: Current Medications Sig/Ade Start time Last Medication Dose Route Stop Time Status Admin Acetaminophen 650 MG Q6P PRN 04/12 0145 AC PO Albuterol Sulfate 3 ML BID 04/12 1000 AC 04/14 INH 2035 Albuterol Sulfate 3 ML Q4 HRS NEEDED PRN 04/12 0145 AC INH Aspirin Buffered 81 MG DAILY 04/12 1000 AC 04/15 PO 0755 Enoxaparin Sodium 40 MG DAILY 04/12 1000 AC 04/12 SC 0925 Fluticasone 2 PUF BID 04/12 1446 AC 04/15 Propionate INH 0756 Folic Acid 1 MG DAILY 04/12 1000 AC 04/15 PO 0755 Ipratropium [place] 2.5 ML BID 04/12 1000 AC 04/14 INH 2035 Ipratropium [place] 2.5 ML Q4 HRS NEEDED PRN 04/12 0200 AC INH Lorazepam 0.5 MG TID PRN 04/12 0815 AC 04/15 PO 04/19 0814 0755 Melatonin 5 MG AT BEDTIME 04/13 2200 AC 04/14 PO 2226 Multivitamins 1 TAB DAILY 04/12 1000 AC 04/15 Therapeutic PO 0755 Prednisone 10 MG DAILY 04/15 1000 DC 04/15 PO 04/15 1001 0755 Thiamine HCl 100 MG DAILY 04/12 1000 AC 04/15 PO 0755 Tiotropium [place] 1 PUF DAILY 04/12 1000 AC 04/15 INH 0755 Microbiology Date/Time Procedure - Status Source Growth 04/12 1722 Respiratory Culture - CAN LOWER RESP Cancelled: SPECIMEN NOT RECEIVED IN LABORATORY 04/12 1722 Gram Stain - CAN LOWER RESP Cancelled: SPECIMEN NOT RECEIVED IN LABORATORY 04/12 1130 Respiratory Culture - CAN LOWER RESP Cancelled: NUMBER OF SQUAMOUS CELLS INDICATES POOR QUALITY SPECIMEN 04/12 1130 Gram Stain - CAN LOWER RESP Cancelled: NUMBER OF SQUAMOUS CELLS INDICATES POOR QUALITY SPECIMEN Vital Signs & I&O Last 24 Hrs of Vitals and I&O: Vital Signs Date Time Temp Pulse Resp B/P Pulse O2 O2 Flow FiO2 Ox Delivery Rate 04/15 0800 Room Air 04/15 0621 97.8 92 20 122/70 97 Room Air 04/15 0000 Room Air 04/14 2342 98.8 79 20 124/74 96 Room Air 04/14 2034 96 Room Air 04/14 1540 98.6 90 20 110/70 95 04/14 1141 98 Room Air Room Air Intake & Output 04/15 1600 04/15 0800 04/15 0000 Intake Total 100 100 Output Total 300 Balance -200 100 Intake, Oral 100 100 Output, Urine 300 Impression/Plan Impression/Plan Impression/Plan: SIGNIFICANT DATA Chest x-ray showed multiple chronic changes no acute IMPRESSION This is a 75-year-old gentleman who is followed at [facility], 30-pack- year smoking history quit in 1989, significant chronic obstructive and restrictive lung disease with previous history of tuberculosis with surgery done in early in the right upper lobe with status post anti-TB treatment, previous history of moderate alcohol use now with ongoing etoh use, history of paroxysmal atrial fibrillation not on anticoagulation, hypertension, previous history of C. difficile, cholelithiasis now with choledocholitiasis s/p ercp and removal of stone with no biliary sepsis at that time, anxiety and depression, previous history of asbestos exposure by his CT findings now comes in with * Shortness of breath which seems to have rapidly resolved in a gentleman with both obstructive and restrictive lung disease, may have been worsened by anxiety and etoh use with no clinical evidence of bacterial bronchitis. He does have evidence of ACOPDE * He has clinically moderate to severe COPD with significant restriction as well due to previous tuberculosis and mild pulmonary fibrosis. He also has restrictive lung disease with significant pleural plaque bilaterally, the pleural plaques appears to be more in the basal area probably related to pleurisy he may have had from tuberculosis. Asbestos related pleural plaque is a possibility but maybe less likely. * 5 mm lung nodule stable with one-year follow-up CT * Choledocholithiasis with elevated bilirubin recently now resolved with ercp * History of alcohol use patient, Hence immunosuppressed * Proximal atrial fibrillation not on anticoagulation * Remote history of tuberculosis with right upper lobe surgery probably segmentectomy with chronic lung disease with bronchiectasis with no evidence suggestive of active TB recurrence * Chronic lung disease and patient is on oxygen on and off as needed depending on his O2 sat his room air sat has been good * Chronic hypomagnesemia probably related to GI loss. * Glucose intolerance with atrophic pancreas with previous history of alcoholic use * Previous history of C. difficile RECOMMENDATION * Wean steroids to off * nebs prn * Start spiriva in am * Flovent 222 puffs twice a day * Watch for alcohol withdrawal * Stable
[2016-04-15] MEDS ORDERED: FLOVENT HFA12 G1 INH (11:35)
[2016-07-20] MEDS ORDERED: PREDNISONE20 M1 PO (12:51)
== END 2016-04-15 12:57 | DRG 190 ==
LOC: ENRESERVTM → ENRESERVDT → ERH 18:32 → ERHI 20:32 → ENPENDDIS 20:32 → 2NA 20:32
PROVIDERS: Physician Assistant Medical; ADMIT Student in an Organized Health Care Education/Training Program
DX: J44.1 Chronic obstructive pulmonary disease with (acute) exacerbation (principal); J96.21 Acute and chronic respiratory failure with hypoxia; E87.3 Alkalosis; Z99.81 Dependence on supplemental oxygen; F10.20 Alcohol dependence, uncomplicated; I10 Essential (primary) hypertension; I48.91 Unspecified atrial fibrillation; Z86.11 Personal history of tuberculosis
CPT/HCPCS: 2NASP; ERO; 80307; 87070; 93005; 93010; 96374; 97110-GO; 97116-GO; 97161-GP; 97530-GO; G0480; J0456; J1650; J2930; J3490; J7060; J7512

== ENCOUNTER 2016-07-14 09:38 | Inpatient (IN) | payer OTHER ==
[~2016-07-14] VITALS: Ht 177.8 cm; Wt 79.4 kg
[~2016-07-14 09:38] MED LIST changes: +FLOVENT HFA12 G1 INH
--- NOTE | 2016-07-14 09:44 | NUR ---
TRIAGE: 76 Y/O MALE BIBA FROM HOME C/O SOB SINCE YESTERDAY. ROOM AIR SPO2 UPON ARRIVAL: 96%. RESP RATE 24-26. AFEBRILE UPON ARRIVAL: 97.2. SKIN APPEARS DRY.
--- NOTE | 2016-07-14 09:50 | NUR ---
RYANN RAMOS AT BEDSIDE.
--- NOTE | 2016-07-14 09:55 | ED DYSPNEA/ASTHMA COMPLAINT ---
History of Present Illness General Chief Complaint: Dyspnea (COPD, CHF, Other) Stated Complaint: DIFF BREATHING Source: patient, old records, EMS Exam Limitations: poor historian Vital Signs & Intake/Output Vital Signs & Intake/Output Vital Signs Date Time Temp Pulse Resp B/P B/P Pulse O2 O2 Flow FiO2 Mean Ox Delivery Rate 07/15 0920 96 Room Air Room Air 07/15 0900 114 20 150/104 95 07/15 0800 98.5 114 20 148/100 07/15 0800 98.5 114 20 148/100 94 Room Air 07/15 0746 97.5 116 20 144/119 100 Room Air 07/15 0658 105 20 158/115 07/15 0445 104 20 144/116 07/15 0000 Room Air 07/15 0000 97.9 98 20 140/80 07/14 2256 Room Air Room Air 07/14 2200 105 20 140/80 95 Room Air 07/14 2132 105 140/80 07/14 2022 97.9 108 20 160/80 07/14 2022 96 Room Air 07/14 2022 97.9 108 20 160/80 96 Room Air 07/14 1840 98.2 101 18 160/98 96 Room Air 07/14 1834 110 20 154/108 99 Room Air 07/14 1737 98.9 110 20 156/100 07/14 1737 98.4 108 28 156/100 96 Room Air 07/14 1604 97.7 111 22 162/94 97 Room Air 07/14 1602 97.7 111 18 162/94 07/14 1500 97 Room Air Room Air 07/14 1452 99.2 102 22 127/79 96 Room Air 07/14 1345 99.0 113 18 164/103 07/14 1340 99.0 113 18 164/103 98 Room Air 07/14 1200 97.9 100 20 174/78 96 Room Air 07/14 1130 98.0 113 20 166/95 ED Intake and Output 07/15 0000 07/14 1200 Intake Total 660 Output Total 1175 Balance -515 Intake, Oral 660 Output, Urine 1175 Patient 175 lb 170 lb Weight Weight Reported by Patient Reported by Patient Measurement Method Allergies Coded Allergies: NO KNOWN ALLERGIES (04/07/15) Reconcile Medications Albuterol Sulfate (Proair Hfa) 90 MCG HFA.AER.AD 2 PUF INH Q4-6 PRN PRN COPD (Reported) Albuterol Sulfate 2.5 MG/3 ML (0.083 %) VIAL.NEB 1 Vial INH/KARTHIKEYAN PRN COPD ( Reported) Fluticasone Propionate (Flovent Hfa) 110 MCG/ACTUATION AER.W.ADAP 2 PUF INH BID copd Tiotropium [place] (Spiriva) 18 MCG CAP.W.DEV 1 CAP INH DAILY COPD (Reported) Triage Note: TRIAGE: 76 Y/O MALE BIBA FROM HOME C/O SOB SINCE YESTERDAY. ROOM AIR SPO2 UPON ARRIVAL: 96%. RESP RATE 24-26. AFEBRILE UPON ARRIVAL: 97.2. SKIN APPEARS DRY. Triage Nurses Notes Reviewed? yes Onset: Abrupt Duration: hour(s):, constant, continues in ED Timing: recent history Severity: moderate, severe HPI: 76-year-old male comes into emergency room for further evaluation of shortness of breath has been going on since this morning. Denies any chest pain. Denies any cough fever chills. Denies any vomiting. Denies any other associated symptoms. Symptoms are gone progressively worse. History of COPD. Patient is currently not any oxygen. Denies any other associated symptoms. (PHILIP ALBARRAN) Past History Travel History Traveled to [place] past 21 day No Medical History Any Pertinent Medical History? 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 MOTHER, , Age 93; Cause: Old age. SON, , Age 50-60. Relation not specified for: FH: myocardial infarction Hx Contributory? No (PHILIP ALBARRAN) Review of Systems Review of Systems Constitutional: Reports: see HPI. EENTM: Reports: no symptoms. Respiratory: Reports: see HPI. Cardiovascular: Reports: no symptoms. GI: Reports: no symptoms. Genitourinary: Reports: no symptoms. Musculoskeletal: Reports: no symptoms. Skin: Reports: no symptoms. Neurological/Psychological: Reports: no symptoms. Hematologic/Endocrine: Reports: no symptoms. Immunologic/Allergic: Reports: no symptoms. All Other Systems: Reviewed and Negative (PHILIP ALBARRAN) Physical Exam Physical Exam General Appearance: alert, awake, comfortable (poor hygiene) Head: atraumatic, normal appearance Eyes: Bilateral: normal appearance. Ears, Nose, Throat: normal pharynx, normal ENT inspection Neck: normal inspection Respiratory: respiratory distress (mild) Cardiovascular: regular rate/rhythm, tachycardia Gastrointestinal: soft, non-tender Extremities: normal inspection, no edema Neurologic/Psych: awake, alert, oriented x 3 Skin: intact, normal color Core Measures ACS in differential dx? Yes Severe Sepsis Present: No Septic Shock Present: No (PHILIP ALBARRAN) Progress Differential Diagnosis: asthma, AMI, bronchitis, costochondritis, CHF, COPD, musculoskeletal pain, pericarditis, pulmonary embolism, pneumonia, pneumothorax, rib fracture, unstable angina Plan of Care: Orders Procedure Date/time Status Regular Diet 07/15 B Active CBC WITHOUT DIFFERENTIAL 07/15 06 Complete BASIC ELECTROLYTES PLUS BUN&CR 07/15 06 Complete Regular Diet 07/14 D Complete RT: Reevaluation 07/14 2225 Active RT: Evaluation 07/14 2225 Active Precautions 07/14 2158 Complete Pathway - chart 07/15 2023 Active Vital Signs 07/14 2020 Active Teach/Educate 07/14 2020 Active Pain Treatment and Response 07/14 2020 Active Nutritional Intake, Monitor 07/14 2020 Active Isolation 07/14 2020 Active Intake & Output 07/14 2020 Active Patient Care Conference 07/14 2020 Active Activity/Ambulation 07/14 2020 Active Pathway - chart 07/14 173 Active Patient Data 07/14 173 Active Code Status 07/14 173 Active Misc Message 07/14 1634 Active ED Holding Orders 07/14 1634 Active Admit to inpatient 07/14 1634 Active Vital Signs 07/14 1634 Active Code Status 07/14 1634 Complete Patient Data 07/14 1631 Active TROPONIN LEVEL 07/14 1400 Complete EKG 07/14 1400 Active Add-on Test (ER Only) 07/14 1126 Active CIWA 07/14 1126 Active ETHANOL 07/14 0956 Complete Intake & Output 07/14 0940 Active TRC EVALUATION (GEN) 07/14 UNK Complete THERAPIST ORDERS 07/14 UNK Complete PEAK FLOW MEASUREMENT (GEN) 07/14 UNK Complete PT Evaluate & Treat 07/14 UNK Active MEDS - Standard pathway meds 07/14 UNK Active House Staff 07/14 UNK Active VTE Mechanical Prophylaxis 07/14 UNK Active Vital Signs 07/14 UNK Complete CIWA 07/14 UNK Complete Activity/Ambulation 07/14 UNK Active Current Medications Sig/Ade Start time Last Medication Dose Stop Time Status Admin Albuterol Sulfate 3 ML BID 07/15 1000 AC 07/15 (Proventil) 0918 Aspirin 81 MG DAILY 07/15 1000 AC 07/15 (Aspirin) 0903 Sodium Chloride 1,000 ML Q13H 07/14 2230 AC 07/14 (Normal Saline 0.9%) 2235 Acetaminophen 650 MG Q6P PRN 07/14 2030 AC (Tylenol) Enoxaparin Sodium 40 MG DAILY 07/14 1951 AC 07/14 (Lovenox) 2132 Azithromycin 500 MG DAILY@1800 07/14 1800 AC 07/14 (Zithromax) 1804 Sodium Chloride 250 ML (Normal Saline 0.9%) Tiotropium Success 1 PUF DAILY 07/14 1748 AC 07/15 (Spiriva) 0903 Lorazepam 2 MG Q8 07/14 1747 AC 07/15 (Ativan) 0612 Lorazepam 1 MG Q4P PRN 07/14 1745 AC 07/15 (Ativan) 0448 Al Hydroxide/Mg 30 ML Q6-PRN PRN 07/14 1730 AC Hydroxide (Maalox Plus) Thiamine HCl 100 MG DAILY 07/14 1730 AC 07/15 (Vitamin B1) 0903 Multivitamins 1 TAB DAILY 07/14 1725 AC 07/15 (Theragran Vitamins) 0903 Folic Acid 1 MG DAILY 07/14 1724 AC 07/15 (Folic Acid) 0904 Methylprednisolone 40 MG Q8 07/14 1724 AC 07/15 (Solumedrol) 07/18 0601 0612 Laboratory Tests 07/15/16 0640: Anion Gap 13, Estimated GFR > 60, BUN/Creatinine Ratio 12.9, CBC w Diff NO MAN DIFF REQ, RBC 4.34 L, MCV 94.8 H, MCH 31.8 H, RDW 15.8 H, MPV 7.3 L, Gran % 85.2 H, Lymphocytes % 9.7 L, Monocytes % 4.2, Eosinophils % 0.7, Basophils % 0.2, Absolute Granulocytes 5.9, Absolute Lymphocytes 0.7 L, Absolute Monocytes 0.3, Absolute Eosinophils 0, Absolute Basophils 0, PUBS MCHC 33.6 07/14/16 1400: Troponin I < 0.01 07/14/16 1207: Urine Color YEL, Urine Clarity CLEAR, Urine pH 8.0, Ur Specific [place] 1.010, Urine Protein NEG, Urine Ketones NEG, Urine Nitrite NEG, Urine Bilirubin NEG, Urine Urobilinogen 0.2, Ur Leukocyte Esterase NEG, Ur Microscopic EXAM NOT REQUIRED, Urine Hemoglobin NEG, Urine Glucose NEG Diagnostic Imaging: Viewed by Me: Radiology Read, CT Scan. Discussed w/RAD: Radiology Read, CT Scan. Radiology Impression: SERVICE DATE: 07/14/16 EXAM TYPE: RAD - XRY- PORTABLE CHEST XRAY EXAMINATION: XR PORTABLE CHEST CLINICAL INFORMATION: Shortness of breath. COMPARISON: Chest done on 04/11/2016. TECHNIQUE: Portable frontal view of the chest was obtained. FINDINGS: Persistent stable asymmetric low lung volume is noted within the left hemithorax with postsurgical changes at left suprahilar region, pleuroparenchymal presumed scar at right upper lobe, mild emphysematous changes at both upper lobes, and bilateral calcified as well as noncalcified pleural plaques. The cardiomediastinal silhouette is within normal limits, unchanged. Overall, no significant change since 04/11/2016. IMPRESSION: 1. Stable appearance of the chest, unchanged since 04/11/2016. 2. No radiographically detectable superimposed acute cardiopulmonary disease. DICTATED BY: KIMI GAUTAM MD DATE/TIME DICTATED:07/14/161015 CASING MAN: TE Initial ED EKG: normal intervals, normal p-waves, normal sinus rhythm, rate (107 ) Repeat EKG: unchanged Comments: SERVICE DATE: 07/14/16 EXAM TYPE: CAT - CTA CHEST-PULMONARY EMBOLISM EXAMINATION: CT ANGIOGRAM OF THE CHEST WITH AND WITHOUT CONTRAST (CT PULMONARY ANGIOGRAM FOR PE) CLINICAL INFORMATION: Rule ouf pulmonary embolus, shortness of breath, tachycardia. COMPARISON: CT of the chest done on 03/26/2016. TECHNIQUE: Prior to contrast administration, noncontrast localization images were obtained. Subsequently, multidetector volumetric imaging was performed from the thoracic inlet to below the diaphragms following the administration of 95 mL Optiray 350 intravenous contrast. No contrast reaction reported. Sagittal, coronal, and MIP oblique sagittal reformatted images were obtained on the CT workstation, uploaded to PACS, and reviewed. Total exam dose-length product 390.05 mGy-cm. FINDINGS: QUALITY OF STUDY/CONTRAST BOLUS: Satisfactory PULMONARY ARTERIES: The proximal part of both right as well as the left main pulmonary arteries show artifacts and grossly appear unremarkable. The remainder of the pulmonary artery otherwise appear unremarkable. THORACIC AORTA: Atherosclerotic changes are noted within the aorta and its branches including coronary arterial calcifications. There is no evidence of any aneurysm and/or dissection present. LUNG: Emphysematous changes are noted throughout both lung rubio predominantly involving both upper lobes with superimposed presumed pleural parenchymal scar at both upper lobes (right greater than left). There is a stable 5 mm nodule identified within the lingula, unchanged. There is a stable calcified granuloma noted at superior segment of right lower lobe of the lung, unchanged as well. No new abnormalities. PLEURA: Extensive predominantly calcified as well as noncalcified pleural plaques are noted bilaterally (left greater than right), unchanged. There is no discrete superimposed focal soft tissue mass identified within the pleural space on either side, unchanged. There is no pleural effusion present. The findings are most consistent with prior asbestosis exposure. MEDIASTINUM: Atherosclerotic disease including coronary artery calcifications are present. There are no pathologically enlarged mediastinal, hilar or lymphadenopathy present. No evidence of septal bowing or right heart strain. CHEST WALL/AXILLA: Previously documented nonspecific subcutaneous nodule involving the right anterior chest wall at the level of the aortopulmonary window, arch of the aorta measuring approximately 1.6 cm appear unchanged. There is a smaller similar appearing abnormality also noted to the left of the midline just inferior to the right-sided abnormality (see the polanco images), unchanged. OSSEOUS STRUCTURES: No acute or suspicious osseous abnormality. UPPER ABDOMEN: There is a calcified gallstone and thickening of the right adrenal gland noted and unchanged. Mild hepatic steatosis is present. No new abnormalities. No reflux of contrast into the hepatic veins to suggest elevated right heart pressures. IMPRESSION: 1. The proximal part of both right and left main pulmonary arteries show artifacts, suboptimally evaluated, otherwise, the remainder of the pulmonary arterial tree appear unremarkable, unchanged. 2. Compared to most recent prior CT of the chest dated 03/26/2016, otherwise, no other significant interval change present. 3. Specifically, previously identified 5 mm lingular lung nodule appears stable. VTE: negative. Various management parameters for solitary pulmonary nodules are in the literature. According to the Fleischner Society, recommendations for pulmonary nodules are as follows: Nodule size < or = to 4 mm in LOW RISK PATIENTS: No follow up needed. Nodule size < or = to 4 mm in HIGH RISK PATIENTS: Follow up CT at 12 months; if unchanged, no further follow up. Nodule size > 4-6 mm in LOW RISK PATIENTS: Follow up CT at 12 months; if unchanged, no further follow up. Nodule size > 4-6 mm in HIGH RISK PATIENTS: Initial follow up CT at 6-12 months, then at 18-24 months if no change. Nodule size > 6-8 mm in LOW RISK PATIENTS: Initial follow up CT at 6-12 months, then at 18-24 months if no change. Nodule size > 6-8 mm in HIGH RISK PATIENTS: Initial follow up CT at 3-6 months, then 9-12 months and 24 months if no change. Nodule size > 8 mm in LOW RISK PATIENTS: Follow up CT at around 3, 9, and 24 months, dynamic contrast-enhanced CT, PET, and/or biopsy. Nodule size > 8 mm in HIGH RISK PATIENTS: Same as for low-risk patients. DICTATED BY: KIMI GAUTAM MD DATE/TIME DICTATED:07/14/161209 CASING MAN:TE DATE/TIME TRANSCRIBED:07/14/161209 (PHILIP ALBARRAN) Departure Departure Disposition: STILL A PATIENT Condition: Stable Clinical Impression Primary Impression: COPD (chronic obstructive pulmonary disease) Secondary Impressions: Alcohol dependence, Multifactorial gait disorder Referrals: DIANA MAHONEY MD (PCP/Family) Departure Forms: Customer Survey General Discharge Information Admission Note Spoke With: CARLIN MADRIGAL MD Documentation of Exam: Documentation of any treatments & extenuating circumstances including Concerns Regarding Discharge (functional status, medication knowledge or non-compliance, living conditions, etc.) that warrant an admission rather than observation: Patient was in moderate respiratory distress upon arrival. Patient will require further workup for COPD. Patient also showing signs of alcohol withdrawal with elevated heart rate and elevated high blood pressure. Patient unable to ambulate here in the emergency room. Patient unsteady at home. Home is not suitable for living at this time. Patient will require serial labs. Patient has increased weakness. Unsafe at home. (PHILIP ALBARRAN) PA/CLINIC SPECIALIST Co-Sign Statement Statement: ED Attending supervision documentation- [X] I saw and evaluated the patient. I have also reviewed all the pertinent lab results and diagnostic results. I agree with the findings and the plan of care as documented in the PA's/CLINIC SPECIALIST's documentation. [] I have reviewed the ED Record and agree with the PA's/CLINIC SPECIALIST's documentation. [] Additions or exceptions (if any) to the PAs/CLINIC SPECIALIST's note and plan are summarized below: [] (EWA AU,JASMYN Rodrigez) Critical Care Note Critical Care Note Critical Care Time: non-applicable (PHILIP ALBARRAN) ED Attending Observation Initial Observation Note: I have seen and personally examined YUVAL MANSFIELD on 07/14/16 at 1159. I agree with the current emergency department documentation. The disposition (admission or discharge) is uncertain at this time, he needs a period of observation for the following reason(s): The ED Nurse caring for this patient has been personally informed as to what the patient is being observed for. (PHILIP ALBARRAN)
--- NOTE | 2016-07-14 09:59 | NUR ---
2 SST, 2 LAV, 1 BLUE, 1 MAIER TOP TUBE SENT TO LAB.
--- NOTE | 2016-07-14 10:05 | NUR ---
PORTABLE CHEST XRAY IN PLACE.
[2016-07-14 10:19] LABS: ABSOLUTE BASOPHIL COUNT 0 /CUMM (0.0-0.2); ABSOLUTE EOSINOPHIL COUNT 0 /CUMM (0.0-0.7); ABSOLUTE GRANULOCYTE CT 6.4 /CUMM (1.4-6.5); ABSOLUTE MONOCYTE COUNT 1.1 /CUMM (0.10-0.60); BASOPHIL % 0.3 % (0.0-2.0); EOSINOPHIL % 0.5 % (0-5); GRANULOCYTE % 74.8 % (42.2-75.2); MEAN CORPUSCULAR HGB 31.8 PG (27.0-31.0); MEAN CORPUSCULAR HGB CONC 33.8 G/DL (33.0-37.0); MEAN PLATELET VOLUME 6.2 FL (7.4-10.4); PLATELET COUNT 397 /CUMM (130-400); RBC DISTRIBUTION WIDTH 15.8 % (11.5-14.5); RED BLOOD CELL CT 4.15 /CUMM (4.70-6.10); WHITE BLOOD CELL COUNT 8.6 /CUMM (4.8-10.8)
--- NOTE | 2016-07-14 10:36 | RADIOLOGY REPORT ---
EXAMINATION: XR PORTABLE CHEST CLINICAL INFORMATION: Shortness of breath. COMPARISON: Chest done on 04/11/2016. TECHNIQUE: Portable frontal view of the chest was obtained. FINDINGS: Persistent stable asymmetric low lung volume is noted within the left hemithorax with postsurgical changes at left suprahilar region, pleuroparenchymal presumed scar at right upper lobe, mild emphysematous changes at both upper lobes, and bilateral calcified as well as noncalcified pleural plaques. The cardiomediastinal silhouette is within normal limits, unchanged. Overall, no significant change since 04/11/2016. IMPRESSION: 1. Stable appearance of the chest, unchanged since 04/11/2016. 2. No radiographically detectable superimposed acute cardiopulmonary disease.
--- NOTE | 2016-07-14 10:42 | NUR ---
AWAITING LAB RESULTS.
--- NOTE | 2016-07-14 10:58 | NUR ---
PATIENT TO CT SCAN VIA STRETCHER AT THIS TIME.
[2016-07-14 11:30] VITALS: BP 166/95
--- NOTE | 2016-07-14 11:51 | NUR ---
PATIENT RETURNS FROM CT SCAN. REPLACED ON PET CREMATORY WORKER AND SPO2 MONITOR. RESP RATE 28 AND LABORED. ROOM AIR SPO2 96-97%. RATE 113 ON MONITOR.
--- NOTE | 2016-07-14 13:00 | NUR ---
PATIENT RESTING COMFORTABLY AT PRESENT. REMAINS ON INVESTIGATIONS MANAGER - RATE 110. WILL CONTINUE TO MONITOR.
--- NOTE | 2016-07-14 13:17 | CT SCAN REPORT ---
EXAMINATION: CT ANGIOGRAM OF THE CHEST WITH AND WITHOUT CONTRAST (CT PULMONARY ANGIOGRAM FOR PE) CLINICAL INFORMATION: Rule ouf pulmonary embolus, shortness of breath, tachycardia. COMPARISON: CT of the chest done on 03/26/2016. TECHNIQUE: Prior to contrast administration, noncontrast localization images were obtained. Subsequently, multidetector volumetric imaging was performed from the thoracic inlet to below the diaphragms following the administration of 95 mL Optiray 350 intravenous contrast. No contrast reaction reported. Sagittal, coronal, and MIP oblique sagittal reformatted images were obtained on the CT workstation, uploaded to PACS, and reviewed. Total exam dose-length product 390.05 mGy-cm. FINDINGS: QUALITY OF STUDY/CONTRAST BOLUS: Satisfactory PULMONARY ARTERIES: The proximal part of both right as well as the left main pulmonary arteries show artifacts and grossly appear unremarkable. The remainder of the pulmonary artery otherwise appear unremarkable. THORACIC AORTA: Atherosclerotic changes are noted within the aorta and its branches including coronary arterial calcifications. There is no evidence of any aneurysm and/or dissection present. LUNG: Emphysematous changes are noted throughout both lung rubio predominantly involving both upper lobes with superimposed presumed pleural parenchymal scar at both upper lobes (right greater than left). There is a stable 5 mm nodule identified within the lingula, unchanged. There is a stable calcified granuloma noted at superior segment of right lower lobe of the lung, unchanged as well. No new abnormalities. PLEURA: Extensive predominantly calcified as well as noncalcified pleural plaques are noted bilaterally (left greater than right), unchanged. There is no discrete superimposed focal soft tissue mass identified within the pleural space on either side, unchanged. There is no pleural effusion present. The findings are most consistent with prior asbestosis exposure. MEDIASTINUM: Atherosclerotic disease including coronary artery calcifications are present. There are no pathologically enlarged mediastinal, hilar or lymphadenopathy present. No evidence of septal bowing or right heart strain. CHEST WALL/AXILLA: Previously documented nonspecific subcutaneous nodule involving the right anterior chest wall at the level of the aortopulmonary window, arch of the aorta measuring approximately 1.6 cm appear unchanged. There is a smaller similar appearing abnormality also noted to the left of the midline just inferior to the right-sided abnormality (see the polanco images), unchanged. OSSEOUS STRUCTURES: No acute or suspicious osseous abnormality. UPPER ABDOMEN: There is a calcified gallstone and thickening of the right adrenal gland noted and unchanged. Mild hepatic steatosis is present. No new abnormalities. No reflux of contrast into the hepatic veins to suggest elevated right heart pressures. IMPRESSION: 1. The proximal part of both right and left main pulmonary arteries show artifacts, suboptimally evaluated, otherwise, the remainder of the pulmonary arterial tree appear unremarkable, unchanged. 2. Compared to most recent prior CT of the chest dated 03/26/2016, otherwise, no other significant interval change present. 3. Specifically, previously identified 5 mm lingular lung nodule appears stable. VTE: negative. Various management parameters for solitary pulmonary nodules are in the literature. According to the Fleischner Society, recommendations for pulmonary nodules are as follows: Nodule size < or = to 4 mm in LOW RISK PATIENTS: No follow up needed. Nodule size < or = to 4 mm in HIGH RISK PATIENTS: Follow up CT at 12 months; if unchanged, no further follow up. Nodule size > 4-6 mm in LOW RISK PATIENTS: Follow up CT at 12 months; if unchanged, no further follow up. Nodule size > 4-6 mm in HIGH RISK PATIENTS: Initial follow up CT at 6-12 months, then at 18-24 months if no change. Nodule size > 6-8 mm in LOW RISK PATIENTS: Initial follow up CT at 6-12 months, then at 18-24 months if no change. Nodule size > 6-8 mm in HIGH RISK PATIENTS: Initial follow up CT at 3-6 months, then 9-12 months and 24 months if no change. Nodule size > 8 mm in LOW RISK PATIENTS: Follow up CT at around 3, 9, and 24 months, dynamic contrast-enhanced CT, PET, and/or biopsy. Nodule size > 8 mm in HIGH RISK PATIENTS: Same as for low-risk patients.
[2016-07-14 13:45] VITALS: BP 164/103
--- NOTE | 2016-07-14 14:08 | NUR ---
PATIENT REPORTS DRINKS $18 WORTH OF PLASTIC BOTTLE VODKA EVERY 2 WEEKS. DENIES WITHDRAWAL AT PRESENT. RATE ON POLICE COMMANDING OFFICER REMAINS 110.
--- NOTE | 2016-07-14 15:15 | NUR ---
RESTING ON STRETCHER, AWAITING DISPOSITION.
--- NOTE | 2016-07-14 15:56 | NUR ---
INCONTINENT LARGE AMOUNT SOFT BORWON STOOL. LINEN CHANGED, NO SKIN BREAKDOWN. EXTREMETIES SHAKY.
[2016-07-14 16:02] VITALS: BP 162/94
--- NOTE | 2016-07-14 16:42 | NUR ---
REFUSED DINNER, AWAITING BED ASSIGNMENT.
--- NOTE | 2016-07-14 16:59 | NUR ---
PT ROOM ASSINNED TO 210 BED2 NURSE INFORMED
--- NOTE | 2016-07-14 17:10 | History & Physical ---
CARLY AU,TUSHAR 07/14/16 9609: General Information and HPI MD Statement: I have seen and personally examined YUVAL MANSFIELD and documented this H&P. The patient is a 76 year old M who presented with a patient stated chief complaint of [shortness of breath]. Source of Information: patient Exam Limitations: no limitations History of Present Illness: Patient is a 76 YO M with PMH significant for COPD (on 1-2L home oxygen PRN), hypertension, paroxysmal atrial fibrillation (not a anticoagulation), obstetric sleep apnea, tuberculosis, cholelithiasis came to the ER with chief concern of shortness of breath. He woke up yesterday with shortness of breath suddenly, unable to get out of the bed. It progressively got worse today. He usually wheelchair, roller walker at home lives alone and lives alone. He takes care of himself. He does have some dry cough at baseline. He does report some decreased per oral intake. He was last hospitalized 6 weeks ago for similar condition, usually gets hospitalized once every 2 months for COPD exacerbation. He denies any fever, recent infections, nausea, vomiting. He does have loose bowel movements at baseline with last one being in ER today. He had a history of C. difficile several times. Alcohol - vodka around 3 shots every week end, denies regular intake. Reports never hospitalized for alcohol withdrawals/RELATED seizures. smoking - 30 years ago when he developed tuberculosis. Denies any illicit drug use. He usually goes to [facility] and follows with Dr. Mahoney. [facility] call to [facility]. Significant Family history HI in father at 52 Surgical - hip fracture 10 years ago, right upper lobectomy of lung for tuberculosis scarring. Allergies/Medications Allergies: Coded Allergies: NO KNOWN ALLERGIES (04/07/15) Home Med list Albuterol Sulfate (Proair Hfa) 90 MCG HFA.AER.AD 2 PUF INH Q4-6 PRN PRN COPD (Reported) Albuterol Sulfate 2.5 MG/3 ML (0.083 %) VIAL.NEB 1 Vial INH/KARTHIKEYAN PRN COPD ( Reported) Fluticasone Propionate (Flovent Hfa) 110 MCG/ACTUATION AER.W.ADAP 2 PUF INH BID copd Tiotropium [place] (Spiriva) 18 MCG CAP.W.DEV 1 CAP INH DAILY COPD (Reported) Past History Travel History Traveled to [place] past 21 day No Medical History Neurological: NONE EENT: NONE Cardiovascular: AFIB (PAF, currently NSR, w/o A/C tx), hypertension Respiratory: COPD, obstructive sleep apnea, 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 TUBERCULOSIS Gastrointestinal: C.difficile x 2, last 5 yrs ago Hepatic: cholelithiasis (incidental on previous CT) Renal: NONE Musculoskeletal: fracture, right hip fracture 10 years ago- R THR @ [facility] Psychiatric: anxiety, mild to mod EtOH, 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 MOTHER, , Age 93; Cause: Old age. SON, , Age 50-60. Relation not specified for: FH: myocardial infarction Psychosocial History Who Do You Live With? self Services at Home: Oxygen Primary Language: Ghanaian ETOH Use: occasional use Illicit Drug Use: denies illicit drug use Living Will? no Power of Calculus Tutor/HCP? no Functional Ability ADLs Independent: dressing, eating, toileting, bathing. Ambulation: independent IADLs Independent: shopping, housework, finances, food prep, telephone, transportation , medication admin. Review of Systems Review of Systems Constitutional: Reports: see HPI. EENTM: Reports: no symptoms. Respiratory: Reports: see HPI, cough, short of breath. Denies: orthopnea, sputum production. GI: Reports: diarrhea, changes in stool. Denies: bloody stool. Genitourinary: Reports: see HPI. Exam & Diagnostic Data Last 24 Hrs of Vital Signs/I&O Vital Signs Date Time Temp Pulse Resp B/P B/P Pulse O2 O2 Flow FiO2 Mean Ox Delivery Rate 07/14 1604 97.7 111 22 162/94 97 Room Air 07/14 1602 97.7 111 18 162/94 07/14 1500 97 Room Air Room Air 07/14 1452 99.2 102 22 127/79 96 Room Air 07/14 1345 99.0 113 18 164/103 07/14 1340 99.0 113 18 164/103 98 Room Air 07/14 1200 97.9 100 20 174/78 96 Room Air 07/14 1130 98.0 113 20 166/95 07/14 1113 98.0 113 20 166/95 98 Room Air 07/14 1016 97.9 117 20 135/72 94 07/14 1001 97 07/14 0944 97 Room Air Room Air 07/14 0944 97.2 109 26 159/104 97 Room Air Room Air Intake & Output 07/14 1600 07/14 0800 07/14 0000 Intake Total 180 Output Total 450 Balance -270 Intake, Oral 180 Output, Urine 450 Patient 77.111 kg Weight Weight Reported by Patient Measurement Method Physical Exam General Appearance Alert, Oriented X3, Cooperative Skin No Rashes, No Breakdown, seborrheic dermatitis on face HEENT Atraumatic, PERRLA, EOMI Neck Supple Cardiovascular Normal S1, Normal S2 Lungs Clear to Auscultation, Normal Air Movement Abdomen Normal Bowel Sounds, Soft, No Tenderness Neurological Normal Tone, Sensation Intact, Cranial Nerves 3-12 NL, Reflexes 2+ Extremities No Clubbing, No Cyanosis, No Edema Body Front and Back (Adult) 1) Seborrhoeic dermatitis Last 24 Hrs of Labs/Figueroa: Laboratory Tests 07/14/16 1400: Troponin I < 0.01 07/14/16 1207: Urine Color YEL, Urine Clarity CLEAR, Urine pH 8.0, Ur Specific Harriet 1.010, Urine Protein NEG, Urine Ketones NEG, Urine Nitrite NEG, Urine Bilirubin NEG, Urine Urobilinogen 0.2, Ur Leukocyte Esterase NEG, Ur Microscopic EXAM NOT REQUIRED, Urine Hemoglobin NEG, Urine Glucose NEG 07/14/16 0956: Anion Gap 16, Estimated GFR > 60, BUN/Creatinine Ratio 13.8, Glucose 111 H, Calcium 9.9, Total Bilirubin 0.9, AST 44, ALT 46, Alkaline Phosphatase 104, Troponin I < 0.01, Jkz-N-Gruifmxaqjg Pept 90.4, Total Protein 8.1, Albumin 4.5, Globulin 3.6, Albumin/Globulin Ratio 1.3, CBC w Diff NO MAN DIFF REQ, RBC 4.15 L, MCV 94.0, MCH 31.8 H, RDW 15.8 H, MPV 6.2 L, Gran % 74.8, Lymphocytes % 11.8 L, Monocytes % 12.6 H, Eosinophils % 0.5, Basophils % 0.3, Absolute Granulocytes 6.4, Absolute Lymphocytes 1.0 L, Absolute Monocytes 1.1 H, Absolute Eosinophils 0, Absolute Basophils 0, PUBS MCHC 33.8, Serum Alcohol < 10.0 Diagnostic Data EKG Results Normal sinus rhythm Assessment/Plan Assessment: Patient is a 76-year-old male with history of COPD, tuberculosis status post right upper lobeectomy, nondiabetic, recurrent hospitalizations once every 2 months for COPD at [facility] came to the [place] ER with progressive worsening of shortness of breath. The ruled out PE is low although tachycardic and suboptimally mobile, given CT angiogram negative. Infection ruled out as remained afebrile without any leukocytosis. Given history of COPD, extensive wheezing at this point I lean toward COPD exacerbation as the reason behind his presentation. Patient is very weak in ER and also needs a placement, as doesn't have any home health services currently. ER course Vital signs Tmax of 99.2, pulse of 117, blood pressure 159/104 mmHg, on room air Labs are unremarkable Imaging Chest x-ray 1. Stable appearance of the chest, unchanged since 04/11/2016 2. No radiographically detectable superimposed acute cardiopulmonary disease. CT - angiogram Ruled out PE, stable lingual pulmonary nodule present Plan Medication list needs to be confirmed. Patient reports his sister is going to bring the pill box. He [facility] all [facility] medications [facility] COPD exacerbation * Started on IV Solu-Medrol 40 every 8, IV azithromycin * TRC nebs * Gentle hydration Alcohol withdrawal * [facility] protocol with lorazepam 2 mg every 8, lorazepam when necessary 1 mg every 4 * Thiamine/folic acid/multivitamin * Gentle hydration with IV normal saline @75ml/hr * Social consult History of hypertension * He is unable to recall his medications * It's safe to start with thiazide as patient is tachycardic at this point and nondiabeti DVT prophylaxis * Subcutaneous Lovenox CODE STATUS * Full code As Ranked By This Provider Problem List: 1. COPD exacerbation 2. Alcohol dependence 3. Tachycardia Core Measures/Miscellaneous Acute Coronary Syndrome ACS Diagnosis: No Cerebrovascular Accident CVA/TIA Diagnosis: No Congestive Heart Failure CHF Diagnosis: No Venous Thromboembolism VTE Risk Factors: Immobility, paresis No Mech VTE prophylaxis d/t: No contraindications No VTE Pharm Prophylaxis d/t: No contraindications VTE Diagnosis: No VTE Type: NONE VTE Confirmed by (Test): NONE Severe Sepsis Severe Sepsis Present: No Septic Shock Septic Shock Present: No Miscellaneous Documentation Attending Case Discussed With: CARLIN MADRIGAL MD Primary Care Physician: DIANA MAHONEY MD Patient sees these Specialists Unknown Level of Patient Care: General Medicine CARLIN MADRIGAL 07/14/16 1710: Attending MD Review Statement Attending Statement Attending MD Statement: examined this patient, discuss w/resident/PA/COMMIS CHEF, agreed w/resident/PA/COMMIS CHEF, discussed with family, reviewed EMR data (avail), discussed with nursing, discussed with case mgmt, reviewed images, amended to note Attending Assessment/Plan: 76 O/m with PMH of COPD, h/o Afib currently in sinus tachycardia, hypertension, JOANNE, alcohol abuse, h/o TB with lung resection in past, h/o c diff in past comes with tachycardia, sob, CTA negative being admitted for copd exacerbation and alcohol withdrawal. Patient started on i/v steroids, abx, bronchodilators , oxygen supplementation as needed, IVF gentle hydration, ciwa and Ativan prn. PT consult, case management consult. gi/dvt prophyalxis full code. TYSON CORRAL MD 07/14/161958: Resident Review Statement Resident Statement: examined this patient, discussed with audit intern, agreed with audit intern Other Findings: 76-year-old male with past medical history of afib, hypertension, COPD on 2 L home O2 as needed, history of tuberculosis status post upper left lobectomy who presents with worsening SOB and a mild cough x 1 day. He also drinks 4-5 shots over a day, but says his last drink was about 3 weeks ago. He uses spiriva, albuterol and nebs but did not get any relief. He takes a low dose aspirin. He was on warfarin at some point but he had bleeding issues and was taken off it a couple of years ago. He has a chronic Rt leg tremor that has been going on for about a year now but he has seen no doctor for it. He uses a cane, a walker and wheelchair as needed for ambulation but is independent of his ADLs. He also has a sister lived at home provided by the [facility]. He takes BP medication but does not remember the name of it and says his meds are mailed to him from the [facility] at [facility]. He was found to be unable to ambulate in the ER. He sees Dr. Mahoney at the [facility]. O/E- patient is AAO 3, unkempt, bilateral hand tremors and tremor of his right leg, chest clear to auscultation, nontender abdomen with normal bowel sounds, no pedal edema. CT chest and CXR show no new abnormalities Assessment Mild COPD exaxcerbation Possible EtOH withdrawal Hypertension Plan Admit to [facility] IV Solumedrol PO aspirin PO thiamine,folate and multivitamin CIWA ativan and scheduled ativan 2mg Q8hrs Monitor CIWA closely IV azithromycin Monitor BP closely and give amlodipine if BP steadily climbs over 160mmHg (one dose of po amlodipine 5mg already given) TRC deirdres PT consult SC lovenox for DVT ppx Mild pain pathway FC [facility] [place] [facility] [place] as pt cannot remember the names of his medication including his BP med.
[2016-07-14 17:37] VITALS: BP 156/100
--- NOTE | 2016-07-14 17:42 | NUR ---
CIWA+ 8, SINUS TACHYCARDIA ON MONITOR WITH FREQUENT PVCS.
--- NOTE | 2016-07-14 18:41 | NUR ---
DR. MILLER CALLED, INFORMED OF BP AND HEART RATE. PT TO RECIEVE MORE ATIVAN (2MG PO)
--- NOTE | 2016-07-14 19:18 | NUR ---
REPORT TO 2N (AMBREEN KENNEDY)
--- NOTE | 2016-07-14 19:44 | NUR ---
THIS RN ASSUMED CARE OF PT PER BRENT CORTES, BRENT CORTES CALLED TO GIVE REPORT ON PT.
[2016-07-14 20:22] VITALS: BP 160/80
--- NOTE | 2016-07-14 21:53 | NUR ---
LATE ENTRY: PATIENT ARRIVED TO FLOOR AT 2006 FROM ER, DX COPD EXAC, ETOH VS 97.9 108 20 160/80 96% ROOM AIR, LUNGS CLEAR, DIMINISHED, PATIENT USES 1-2L O2 AT HOME PRN. A&O TO SELF AND PLACE, USES A WALKER AND CANE AT BASELINE, IS FEELING "SHAKY" NOW, AX1, FALL PRECAUTIONS IN PLACE. INC OF BOWEL, USES URINAL. SKIN IS DRY, INTACT, PSORIASIS TO FACE. IV #22 TO RH, HEP LOCKED. ALPS ARE ON. ORIENTED TO ROOM AND CALL MCNEIL. CONTINUE TO MONITOR.
[2016-07-14 22:00] VITALS: BP 140/80
[2016-07-15] VITALS (8 sets, daily range): BP systolic 90–158; BP diastolic 60–119
--- NOTE | 2016-07-15 07:06 | NUR ---
PT'S BLOOD PRESSURE @ 0448 WAS 144/116. 1MG IV ATIVAN GIVEN PER CIWA PROTOCOL. 2MG PO ATIVAN GIVEN @ 0600. PT'S BLOOD PRESSURE 158/115. PATIENT RESTING COMFORTABLY WITH NO S/S. MD SALEEM RÍOS NOTIFIED. WILL CONTINUE TO MONITOR AND NOTIFY DAY NURSE
--- NOTE | 2016-07-15 07:35 | PN- Housestaff ---
CARLY AU,TUSHAR 07/15/16 0732: Subjective Follow-up For: COPD exacerbation Alcohol withdrawl Subjective: I saw and examined the patient today morning He is feeling much better, energetic, working with physical therapy. Scoring well on CIWA. Unable to sleep well over night. Still short of breath, unable to speak in full sentences. On room air. Review of Systems Constitutional: Reports: see HPI. Objective Last 24 Hrs of Vital Signs/I&O Vital Signs Date Time Temp Pulse Resp B/P B/P Pulse O2 O2 Flow FiO2 Mean Ox Delivery Rate 07/15 0658 105 20 158/115 07/15 0445 104 20 144/116 07/15 0000 Room Air 07/15 0000 97.9 98 20 140/80 07/14 2256 Room Air Room Air 07/14 2200 105 20 140/80 95 Room Air 07/14 2132 105 140/80 07/14 2021 97.9 108 20 160/80 07/14 2021 96 Room Air 07/14 2021 97.9 108 20 160/80 96 Room Air 07/14 1840 98.2 101 18 160/98 96 Room Air 07/14 1834 110 20 154/108 99 Room Air 07/14 1737 98.9 110 20 156/100 07/14 1737 98.4 108 28 156/100 96 Room Air 07/14 1604 97.7 111 22 162/94 97 Room Air 07/14 1602 97.7 111 18 162/94 07/14 1500 97 Room Air Room Air 07/14 1452 99.2 102 22 127/79 96 Room Air 07/14 1345 99.0 113 18 164/103 07/14 1340 99.0 113 18 164/103 98 Room Air 07/14 1200 97.9 100 20 174/78 96 Room Air 07/14 1130 98.0 113 20 166/95 07/14 1113 98.0 113 20 166/95 98 Room Air 07/14 1016 97.9 117 20 135/72 94 07/14 1001 97 07/14 0944 97 Room Air Room Air 07/14 0944 97.2 109 26 159/104 97 Room Air Room Air Intake & Output 07/15 0800 07/15 0000 07/14 1600 Intake Total 740 480 180 Output Total 725 450 Balance 740 -245 -270 Intake, IV 620 Intake, Oral 120 480 180 Output, Urine 725 450 Patient 79.379 kg 77.111 kg Weight Weight Reported by Patient Reported by Patient Measurement Method Physical Exam General Appearance: Alert, Oriented X3 Skin: No Rashes, No Breakdown HEENT: Atraumatic, PERRLA, EOMI Neck: Supple Cardiovascular: Normal S1, Normal S2 Lungs: Clear to Auscultation, Normal Air Movement Abdomen: Normal Bowel Sounds, Soft, No Tenderness Neurological: Strength at 5/5 X4 Ext, Normal Tone, Sensation Intact, tremors on both hands and right leg Extremities: No Clubbing, No Cyanosis Vascular: Normal Pulses Current Medications: Current Medications Sig/Ade Start time Last Medication Dose Route Stop Time Status Admin Acetaminophen 650 MG Q6P PRN 07/14 2030 AC PO Al Hydroxide/Mg 30 ML Q6-PRN PRN 07/14 1730 AC Hydroxide PO Albuterol Sulfate 3 ML BID 07/15 1000 AC 07/14 INH 2223 Albuterol Sulfate 3 ML ONCE ONE 07/14 1000 DC 07/14 INH 07/14 1001 1000 Amlodipine Besylate 5 MG ONCE ONE 07/14 2045 DC 07/14 PO 07/14 2046 2132 Aspirin 81 MG DAILY 07/15 1000 AC PO Azithromycin 500 MG DAILY@1800 07/14 1800 AC 07/14 Sodium Chloride 250 ML IV 1804 Enoxaparin Sodium 40 MG DAILY 07/14 1951 AC 07/14 SC 2132 Folic Acid 0 .STK-MED ONE 07/14 1759 DC PO Folic Acid 1 MG DAILY 07/14 1724 AC 07/14 PO 1804 Ipratropium [place] 2.5 ML ONCE ONE 07/14 1000 DC 07/14 INH 07/14 1001 1000 Lorazepam 0 .STK-MED ONE 07/14 1849 DC PO Lorazepam 0 .STK-MED ONE 07/14 1751 DC .ROUTE Lorazepam 2 MG Q8 07/14 1747 AC 07/15 PO 0612 Lorazepam 1 MG Q4P PRN 07/14 1745 AC 07/15 IV 0448 Lorazepam 1 MG ONCE ONE 07/14 1745 DC 07/14 IV 07/14 1746 1751 Methylprednisolone 0 .STK-MED ONE 07/14 1752 DC .ROUTE Methylprednisolone 40 MG Q8 07/14 1724 AC 07/15 IV 07/18 0601 0612 Multivitamins 0 .STK-MED ONE 07/14 1759 DC PO Multivitamins 1 TAB DAILY 07/14 1725 AC 07/14 PO 1804 Sodium Chloride 1,000 ML Q13H 07/14 2230 07/14 IV 2235 Thiamine HCl 0 .STK-MED ONE 07/14 1800 DC PO Thiamine HCl 100 MG DAILY 07/14 1730 AC 07/14 PO 1804 Thiamine HCl 100 MG DAILY 07/14 1724 DC PO Tiotropium [place] 1 PUF DAILY 07/14 1748 AC 07/14 INH 2131 Last 24 Hrs of Lab/Fig[place] Results Last 24 Hrs of Labs/Mics: Laboratory Tests 07/15/16 0640: Sodium Pending, Potassium Pending, Chloride Pending, Carbon Dioxide Pending, Anion Gap Pending, BUN Pending, Creatinine Pending, BUN/Creatinine Ratio Pending , CBC w Diff Pending, WBC Pending, RBC Pending, Hgb Pending, Hct Pending, MCV Pending, MCH Pending, RDW Pending, Plt Count Pending, MPV Pending, PUBS MCHC Pending 07/14/16 1400: Troponin I < 0.01 07/14/16 1207: Urine Color YEL, Urine Clarity CLEAR, Urine pH 8.0, Ur Specific [place] 1.010, Urine Protein NEG, Urine Ketones NEG, Urine Nitrite NEG, Urine Bilirubin NEG, Urine Urobilinogen 0.2, Ur Leukocyte Esterase NEG, Ur Microscopic EXAM NOT REQUIRED, Urine Hemoglobin NEG, Urine Glucose NEG 07/14/16 0956: Anion Gap 16, Estimated GFR > 60, BUN/Creatinine Ratio 13.8, Glucose 111 H, Calcium 9.9, Total Bilirubin 0.9, AST 44, ALT 46, Alkaline Phosphatase 104, Troponin I < 0.01, Ndn-P-Uzszmjzvsjf Pept 90.4, Total Protein 8.1, Albumin 4.5, Globulin 3.6, Albumin/Globulin Ratio 1.3, CBC w Diff NO MAN DIFF REQ, RBC 4.15 L, MCV 94.0, MCH 31.8 H, RDW 15.8 H, MPV 6.2 L, Gran % 74.8, Lymphocytes % 11.8 L, Monocytes % 12.6 H, Eosinophils % 0.5, Basophils % 0.3, Absolute Granulocytes 6.4, Absolute Lymphocytes 1.0 L, Absolute Monocytes 1.1 H, Absolute Eosinophils 0, Absolute Basophils 0, PUBS MCHC 33.8, Serum Alcohol < 10.0 Assessment/Plan Assessment: Patient is a 76-year-old male with history of COPD, tuberculosis status post right upper lobeectomy, nondiabetic, recurrent hospitalizations once every 2 months for COPD at [facility] came to the [place] ER with progressive worsening of shortness of breath. The ruled out PE is low although tachycardic and suboptimally mobile, given CT angiogram negative. Infection ruled out as remained afebrile without any leukocytosis. Given history of COPD, extensive wheezing at this point I lean toward COPD exacerbation as the reason behind his presentation. Patient is very weak in ER and also needs a placement, as doesn't have any home health services currently. Imaging Chest x-ray 1. Stable appearance of the chest, unchanged since 04/11/2016 2. No radiographically detectable superimposed acute cardiopulmonary disease. CT - angiogram Ruled out PE, stable lingual pulmonary nodule present Plan Medication list needs to be confirmed. Patient reports his sister is going to bring the pill box. He gets all his medications from the [facility] Mild COPD exacerbation * Started on IV Solu-Medrol 40 every 12, IV azithromycin * [facility] nebs * Physical therapy consult Alcohol withdrawal * CIWA protocol with lorazepam 2 mg every 8, lorazepam when necessary 1 mg every 4 * CIWA scores are considerably high 10-16 overnight, so we will continue the regimen. * Thiamine/folic acid/multivitamin * Social consult History of hypertension * He is unable to recall his medications * Clonidine 0.1mg TID for now. DVT prophylaxis * Subcutaneous Lovenox CODE STATUS * full code Problem List: 1. Alcohol dependence 2. Multifactorial gait disorder 3. Dyspnea 4. COPD exacerbation 5. Failure to thrive Pain Ratin Pain Location: n/a Pain Goal: Pain 4 or less Pain Plan: tylenol prn Tomorrow's Labs & Rationales: none CARLIN MADRIGAL 07/15/16 1146: Attending MD Review Statement Attending Statement Attending MD Statement: examined this patient, discuss w/resident/PA/CHILD SUPPORT OFFICER, agreed w/resident/PA/CHILD SUPPORT OFFICER, discussed with family, reviewed EMR data (avail), discussed with nursing, discussed with case mgmt, reviewed images, amended to note Attending Assessment/Plan: 76 O/m with PMH of COPD, h/o Afib currently in sinus tachycardia, hypertension, JOANNE, alcohol abuse, h/o TB with lung resection in past, h/o c diff in past comes with tachycardia, sob, CTA negative being admitted for copd exacerbation and alcohol withdrawal. Hypertension uncontrolled. Patient started on i/v steroids taper, abx, bronchodilators , oxygen supplementation as needed, ciwa and Ativan taper. clonidine for bp control. PT consult, case management consult. gi/dvt prophyalxis full code.
[2016-07-15 09:01] LABS: ABSOLUTE BASOPHIL COUNT 0 /CUMM (0.0-0.2); ABSOLUTE EOSINOPHIL COUNT 0 /CUMM (0.0-0.7); ABSOLUTE GRANULOCYTE CT 5.9 /CUMM (1.4-6.5); ABSOLUTE LYMPH COUNT 0.7 /CUMM (1.2-3.4); ABSOLUTE MONOCYTE COUNT 0.3 /CUMM (0.10-0.60); BASOPHIL % 0.2 % (0.0-2.0); EOSINOPHIL % 0.7 % (0-5); GRANULOCYTE % 85.2 % (42.2-75.2); HEMATOCRIT 41.2 % (42-52); MEAN CORPUSCULAR HGB 31.8 PG (27.0-31.0); MEAN CORPUSCULAR HGB CONC 33.6 G/DL (33.0-37.0); MEAN CORPUSCULAR VOLUME 94.8 FL (80.0-94.0); MEAN PLATELET VOLUME 7.3 FL (7.4-10.4); PLATELET COUNT 323 /CUMM (130-400); RBC DISTRIBUTION WIDTH 15.8 % (11.5-14.5); RED BLOOD CELL CT 4.34 /CUMM (4.70-6.10)
[2016-07-15 10:22] LABS: WHITE BLOOD CELL COUNT 6.9 /CUMM (4.8-10.8)
--- NOTE | 2016-07-15 17:44 | NUR ---
POCKET KNIFE, SCIZZORS, RAZORS, REPLACEMENT HEADS AND NAIL CLIPPERS FOUND IN PATIENT'S ROOM. THESE ITEMS ARE NOW IN THE SAFE WITH SECURITY. PATIENT AWARE, SIGNED THE PAPERWORK, BUT IS FORGETFUL.
[2016-07-16 07:20] VITALS: BP 98/68
--- NOTE | 2016-07-16 07:32 | PN- Housestaff ---
CARLY AU,TUSHAR 07/16/16 0732: Subjective Follow-up For: mild COPD exacerbation Alcohol withdrawl Subjective: I saw and examined the patient today morning He is doing well, able to walk around with physical therapy. Unable to speak in full sentences. His blood pressure is on the lower side, started on fluids. He reports sleeping well. Improving in terms of food intake and energy. Review of Systems Constitutional: Reports: see HPI. Comments: ROS negative except the above Objective Last 24 Hrs of Vital Signs/I&O Vital Signs Date Time Temp Pulse Resp B/P B/P Pulse O2 O2 Flow FiO2 Mean Ox Delivery Rate 07/16 0720 97.6 101 18 98/68 94 Room Air 07/16 0000 93 Room Air 07/15 2221 98.8 106 15 90/60 96 Room Air 07/15 2214 110 120/84 07/15 1631 110 120/84 07/15 1447 98.2 110 20 120/84 96 Room Air 07/15 1247 118 140/98 07/15 0920 96 Room Air Room Air 07/15 0900 114 20 150/104 07/15 0900 114 20 150/104 95 07/15 0800 98.5 114 20 148/100 07/15 0800 98.5 114 20 148/100 94 Room Air 07/15 0746 97.5 116 20 144/119 100 Room Air Intake & Output 07/16 0800 07/16 0000 07/15 1600 Intake Total 50 200 700 Output Total 400 Balance 50 200 300 Intake, Oral 50 200 700 Output, Urine 400 Physical Exam General Appearance: Alert, Oriented X3, Cooperative, No Acute Distress Skin: No Rashes, No Breakdown HEENT: Atraumatic, PERRLA, EOMI Neck: Supple Cardiovascular: Normal S1, Normal S2 Lungs: Clear to Auscultation, Normal Air Movement Abdomen: Normal Bowel Sounds, Soft, No Tenderness Neurological: Normal Speech, Strength at 5/5 X4 Ext, Normal Tone, Sensation Intact, Cranial Nerves 3-12 NL, right leg tremor present Extremities: No Clubbing, No Cyanosis, No Edema Vascular: Normal Pulses, Pulses Symmetrical Current Medications: Current Medications Sig/Ade Start time Last Medication Dose Route Stop Time Status Admin Acetaminophen 650 MG Q6P PRN 07/14 2030 AC PO Al Hydroxide/Mg 30 ML Q6-PRN PRN 07/14 1730 AC Hydroxide PO Albuterol Sulfate 3 ML BID 07/15 1000 AC 07/16 INH 1927 Aspirin 81 MG DAILY 07/15 1000 AC 07/16 PO 0939 Azithromycin 500 MG DAILY@1800 07/14 1800 AC 07/16 Sodium Chloride 250 ML IV 1719 Clonidine 0.1 MG TID 07/15 1151 DC 07/15 PO 2214 Enoxaparin Sodium 40 MG DAILY 07/14 1951 AC 07/16 SC 0940 Folic Acid 1 MG DAILY 07/14 1724 AC 07/16 PO 0940 Lorazepam 1 MG TID 07/17 1000 AC PO Lorazepam 1.5 MG Q8 07/16 2200 AC PO 07/16 2300 Lorazepam 2 MG Q8 07/14 1747 DC 07/16 PO 1207 Lorazepam 1 MG Q4P PRN 07/14 1745 AC 07/15 IV 1630 Methylprednisolone 40 MG Q12 07/15 2200 AC 07/16 IV 07/16 2300 0940 Multivitamins 1 TAB DAILY 07/14 1725 AC 07/16 PO 0939 Patient Medication 1 ED .ST-MED ONE 07/16 1347 [place] Teaching ED 07/16 1348 Prednisone 10 MG DAILY 07/23 1000 AC PO 07/25 0959 Prednisone 20 MG DAILY 07/21 1000 AC PO 07/23 0959 Prednisone 30 MG DAILY 07/19 1000 AC PO 07/21 0959 Prednisone 40 MG DAILY 07/17 1000 CAN PO 07/25 0959 Prednisone 40 MG DAILY 07/17 1000 AC PO 07/19 0959 Sodium Chloride 1,000 ML Q13H 07/16 0915 AC 07/16 IV 07/16 2214 0924 Thiamine HCl 100 MG DAILY 07/14 1730 AC 07/16 PO 0940 Tiotropium [place] 1 PUF DAILY 07/14 1748 AC 07/16 INH 0929 Last 24 Hrs of Lab/[place] Results Last 24 Hrs of Labs/Mics: Laboratory Tests 07/16/16 0911: Urinalysis LIGHT H, Urine Color COLT, Urine Clarity CLEAR, Urine pH 6.0, Ur Specific [place] >= 1.030, Urine Protein 30 H, Urine Ketones TRACE H, Urine Nitrite NEG, Urine Bilirubin NEG@ICTO, Urine Urobilinogen 1.0, Ur Leukocyte Esterase NEG, Ur Microscopic SEDIMENT EXAMINED, Urine WBC 1-3 H, Ur Epithelial Cells FEW, Urine Bacteria MANY H, Urine Mucus MOD H, Urine Hemoglobin NEG, Urine Glucose NEG Assessment/Plan Assessment: Patient is a 76-year-old male with history of COPD, tuberculosis status post right upper lobeectomy, nondiabetic, recurrent hospitalizations once every 2 months for COPD at [facility] came to the [place] ER with progressive worsening of shortness of breath. The ruled out PE is low although tachycardic and suboptimally mobile, given CT angiogram negative. Infection ruled out as remained afebrile without any leukocytosis. Given history of COPD, extensive wheezing at this point I lean toward COPD exacerbation as the reason behind his presentation. Patient is very weak in ER, unable to walk. He doesn't have any home health services currently. Imaging Chest x-ray 1. Stable appearance of the chest, unchanged since 04/11/2016 2. No radiographically detectable superimposed acute cardiopulmonary disease. CT - angiogram Ruled out PE, stable lingual pulmonary nodule present Plan Medication list needs to be confirmed. Patient reports his sister is going to bring the pill box. He gets all his medications from the [facility] Requested records via fax Mild COPD exacerbation * Started on IV Solu-Medrol 40 every 12--> switched to oral prednisone tomorrow * IV azithromycin - 3/5days. * [facility] nebs * Physical therapy suggested home physical therapy. Failure to thrive * Patient needs stair lift, wheel chair, rolling walker at home, usually drives by himself * Decreased oral intake recently leading to weakness. * He didnt have any home health services * Improving in terms of weakness and appetite. Alcohol withdrawal * CIWA scores are 0-4 overnight, started on lorazepam 1.5 --> 1mg TID tomorrow. * Thiamine/folic acid/multivitamin History of hypertension * He is unable to recall his medications * Discontinued clonidine * we will obtain medication records. DVT prophylaxis * Subcutaneous Lovenox CODE STATUS * full code Problem List: 1. COPD exacerbation 2. Failure to thrive 3. Alcohol withdrawal 4. Generalized weakness Pain Ratin Pain Location: n/a Pain Goal: Pain 4 or less Pain Plan: tylenol prn Tomorrow's Labs & Rationales: none CORAL CHERRY MD 07/16/16 1505: Attending Review Statement Attending Statement Attending MD Statement: examined this patient, discuss w/resident/PA/GREY PERCHER, agreed w/resident/PA/GREY PERCHER, reviewed EMR data (avail), discussed with nursing, discussed with case mgmt, amended to note Attending Assessment/Plan: Patient seen and examined. Resting comfortably not in any acute distress. Reports feeling better. Denies shortness or breath. Denies cough. Denies chest pain. He is maintaining saturation on room air. On examination lungs are clear to auscultation bilaterally. Patient denies any recent alcohol use however he did have an elevated CIWA score the day before with scores as high as 19. He did receive a total of 10 mg of Ativan over the course of yesterday. It appears that his agitation may have been secondary to anxiety and not alcohol withdrawal given his markedly improvement today. Recommendations: - Transition to oral steroid therapy tomorrow. - Taper Ativan to 1 mg every 8 hours tomorrow. -Anticipate discharge home in the next 48 hours following further taper off his benzodiazepine therapy.
[2016-07-16 08:00] VITALS: BP 106/68
[2016-07-16 10:04] VITALS: BP 106/68
[2016-07-16 15:04] VITALS: BP 100/60
[2016-07-16 22:15] VITALS: BP 112/70
[2016-07-17 06:38] VITALS: BP 138/86
--- NOTE | 2016-07-17 07:09 | PN- Housestaff ---
CARLY AU,TUSHAR 07/17/16 0709: Subjective Follow-up For: Mild COPD exacerbation EtOH withdrawl Subjective: I saw and examined the patient today morning He is doing well. ambulating in the hallways. Able to speak in full sentences. He denies any cough, sputum production. Review of Systems Constitutional: Reports: see HPI. Objective Last 24 Hrs of Vital Signs/I&O Vital Signs Date Time Temp Pulse Resp B/P B/P Pulse O2 O2 Flow FiO2 Mean Ox Delivery Rate 07/17 0638 98.3 95 20 138/86 96 Room Air 07/16 2215 97.6 100 20 112/70 97 07/16 2041 96 Room Air 07/16 1600 Room Air 07/16 1504 98.5 104 18 100/60 95 Room Air 07/16 1143 97 Room Air Room Air 07/16 1004 111 22 106/68 97 Room Air 07/16 0800 97.6 111 22 106/68 07/16 0720 97.6 101 18 98/68 94 Room Air Intake & Output 07/17 0800 07/17 0000 07/16 1600 Intake Total 1250 Output Total 200 200 Balance -200 -200 1250 Intake, IV 450 Intake, Oral 800 Number 1 Bowel Movements Output, Urine 200 200 Physical Exam General Appearance: Alert, Oriented X3, Cooperative, No Acute Distress Skin: No Rashes, No Breakdown HEENT: Atraumatic, PERRLA Neck: Supple Cardiovascular: Normal S1, Normal S2 Lungs: Clear to Auscultation, Normal Air Movement Abdomen: Normal Bowel Sounds, Soft, No Tenderness Neurological: Normal Speech, Strength at 5/5 X4 Ext, Normal Tone, Sensation Intact Extremities: No Clubbing, No Cyanosis, No Edema Current Medications: Current Medications Sig/Ade Start time Last Medication Dose Route Stop Time Status Admin Acetaminophen 650 MG Q6P PRN 07/14 2030 DCD PO Al Hydroxide/Mg 30 ML Q6-PRN PRN 07/14 1730 DCD Hydroxide PO Albuterol Sulfate 3 ML BID 07/15 1000 DCD 07/16 INH 1927 Aspirin 81 MG DAILY 07/15 1000 DCD 07/17 PO 1204 Azithromycin 500 MG DAILY@1800 07/14 1800 DCD 07/16 Sodium Chloride 250 ML IV 1719 Enoxaparin Sodium 40 MG DAILY 07/14 1951 DCD 07/16 SC 0940 Folic Acid 1 MG DAILY 07/14 1724 DCD 07/17 PO 1204 Lorazepam 1 MG TID 07/17 1000 DC PO Lorazepam 1 MG BID 07/17 1000 DCD 07/17 PO 1354 Lorazepam 1.5 MG Q8 07/16 2200 DC 07/16 PO 07/16 2300 2158 Lorazepam 1 MG Q4P PRN 07/14 1745 DCD 07/15 IV 1630 Methylprednisolone 40 MG Q12 07/15 2200 DC 07/16 IV 07/16 2300 2159 Multivitamins 1 TAB DAILY 07/14 1725 DCD 07/17 PO 1205 Prednisone 10 MG DAILY 07/23 1000 DCD PO 07/25 0959 Prednisone 20 MG DAILY 07/21 1000 DCD PO 07/23 0959 Prednisone 30 MG DAILY 07/19 1000 DCD PO 07/21 0959 Prednisone 40 MG DAILY 07/17 1000 DCD 07/17 PO 07/19 0959 1205 Sodium Chloride 1,000 ML Q13H 07/16 0915 DC 07/16 IV 07/16 2214 0924 Thiamine HCl 100 MG DAILY 07/14 1730 DCD 07/17 PO 1205 Tiotropium [place] 1 PUF DAILY 07/14 1748 DCD 07/17 INH 1205 Assessment/Plan Assessment: Patient is a 76-year-old male with history of COPD, tuberculosis status post right upper lobeectomy, nondiabetic, recurrent hospitalizations once every 2 months for COPD at [facility] came to the [place] ER with progressive worsening of shortness of breath. The ruled out PE is low although tachycardic and suboptimally mobile, given CT angiogram negative. Infection ruled out as remained afebrile without any leukocytosis. Given history of COPD, extensive wheezing at this point I lean toward COPD exacerbation as the reason behind his presentation. Patient is very weak in ER, unable to walk. He doesn't have any home health services currently. Imaging Chest x-ray 1. Stable appearance of the chest, unchanged since 04/11/2016 2. No radiographically detectable superimposed acute cardiopulmonary disease. CT - angiogram Ruled out PE, stable lingual pulmonary nodule present Plan Mild COPD exacerbation * started on oral prednisone taper - will stop by 07/24/16 * [facility] nebs -- continue albuterol and tiotropium inhalers. * Physical therapy suggested home physical therapy. * Stable for discharge today. Failure to thrive * Patient needs stair lift, wheel chair, rolling walker at home, usually drives by himself * Decreased oral intake recently leading to weakness. * He didnt have any home health services * Improving in terms of weakness and appetite. * He is doing well today - stable for discharge. Alcohol withdrawal * CIWA scores are 0-2 overnight ativan tapered down to 1mg BID, gave script for 1mg tomorrow with which he completes the taper. * Thiamine/folic acid/multivitamin * No history of alcohol related seizures. ?? hypertension * [facility], he was recently stopped on metoprolol. I continued his current medication list which didnt have any antihypertensive. He was on aspirin 81mg at home as stroke prophylaxis with Albuterol and Tiotropium inhalers. Multivitamins and eye drops for allergies. DVT prophylaxis * Subcutaneous Lovenox CODE STATUS * full code Problem List: 1. COPD exacerbation 2. Alcohol dependence 3. Multifactorial gait disorder Pain Ratin Pain Location: n/a Pain Goal: Pain 4 or less Pain Plan: tylenol prn Tomorrow's Labs & Rationales: none JO ANN AU,CORAL 07/17/16 1416: Attending MD Review Statement Attending Statement Attending MD Statement: examined this patient, discuss w/resident/PA/ACQUISITION MARKETING COORDINATOR, agreed w/resident/PA/ACQUISITION MARKETING COORDINATOR, reviewed EMR data (avail), discussed with nursing, discussed with case mgmt, amended to note Attending Assessment/Plan: Patient seen and examined. Resting comfortably not in any acute distress. No issues overnight. His CIWA score has been low. He has not required additional dose of Ativan. He received a total of 3.5 mg of Ativan yesterday. He reports that he is at baseline, pulmonary status. He is not requiring oxygen supplementation. Lungs are clear to auscultation bilaterally. He reports that he is ambulatory status is at baseline. At this point is medically stable to be discharged today. He'll be provided with prescriptions for on milligrams of Ativan tonight and another milligram tomorrow following which his Ativan course with discontinued. He will also be provided with prescriptions for a prednisone taper. Has been advised to follow-up with his primary care provider as an outpatient.
--- NOTE | 2016-07-17 09:19 | PN- Student ---
Subjective Subjective: I talked to pt's PCP Jaja Cortez MD. The pt has not seen the PCP for 3 years. She states that during his admission to the hospital in April and June, he was not on any blood pressure medications. She reviewed the pt's chart and notes and did not see any hypotensive and/or bradycardic episodes that could warrant him to stop BP medication. She states that she doesn't see any contraindcations to restarting the metoprolol and agrees to restarting it if needed
[2016-07-17] MEDS ORDERED: SYMBICORT 80-10.2 GM INH (11:50)
[2016-07-17] MEDS ORDERED: ASPIRIN81 M4 PO (11:51)
[2016-07-17] MEDS ORDERED: MIRTAZAPINE7.5 M1 PO (11:52)
[2016-07-17] MEDS ORDERED: PREDNISONE20 M1 PO (12:02)
--- NOTE | 2016-07-17 12:09 | Patient Discharge Instructions ---
Discharge Instructions General Discharge Information You were seen/treated for: Mild COPD exacerbation EtOH withdrawl Special Instructions: Please follow up with your PCP () in a week Diet Continue normal diet: Yes Activity Full Activity/No Limits: Yes Activity Self Limited: Yes Acute Coronary Syndrome Inclusion Criteria At DC or during hospital stay patient has or had the following: ACS DIAGNOSIS No Discharge Core Measures Meds if any: Prescribed or Continued at Discharge Meds if any: NOT Prescribed or Continued at Discharge Congestive Heart Failure Inclusion Criteria At DC or during hospital stay patient has or had the following: CHF DIAGNOSIS No Discharge Core Measures Meds if any: Prescribed or Continued at Discharge Meds if any: NOT Prescribed or Continued at Discharge Cerebrovascular accident Inclusion Criteria At DC or during hospital stay patient has or had the following: CVA/TIA Diagnosis No Discharge Core Measures Meds if any: Prescribed or Continued at Discharge Meds if any: NOT Prescribed or Continued at Discharge Venous thromboembolism Inclusion Criteria VTE Diagnosis No VTE Type NONE VTE Confirmed by (Test) NONE Discharge Core Measures - Per Current guidelines, there needs to be overlap - treatment for the first 5 days of Warfarin therapy. - If discharged on Warfarin prior to 5 days of - overlap therapy, the patient will need to be - assessed for post discharge needs including - *Post discharge parental anticoagulation - *Warfarin and/or parental anticoagulation education - *Follow up date to check INR post discharge At least 5 days overlap therapy as Inpatient No Meds if any: Prescribed or Continued at Discharge Note: Overlap Therapy is Warfarin and Anticoagulant Meds if any: NOT Prescribed or Continued at Discharge
[2016-07-17] MEDS ORDERED: ATIVAN1 M1 PO (13:21)
--- NOTE | 2016-07-17 19:20 | Discharge Summary ---
Visit Information Visit Dates Admission Date: 07/14/16 Discharge Date: 07/17/16 Hospital Course Course Attending Physician: CORAL CHERRY M.D Primary Care Physician: MARU AU,[facility] Course: Patient is a 76-year-old male with history of COPD, tuberculosis status post right upper lobectomy, nondiabetic, visits once every 2 months for COPD at [facility] came to the [place] ER with progressive worsening of shortness of breath and increased weakness. Ruled out PE, although tachycardic and suboptimally mobile, given CT angiogram negative. Infection ruled out as remained afebrile without any leukocytosis. Given history of COPD, mild wheezing at this point I lean toward COPD exacerbation. Patient is very weak in ER, unable to walk. He doesn't have any home health services currently. Imaging Chest x-ray 1. Stable appearance of the chest, unchanged since 04/11/2016 2. No radiographically detectable superimposed acute cardiopulmonary disease. CT - angiogram Ruled out PE, stable lingual pulmonary nodule present Plan Mild COPD exacerbation He was started on IV methylprednisone 40mg Q8 -- gradually tapered down to oral prednisone taper. He is on roomair. He completes his taper by . Azithromycin for its antiinflammatory properties. Failure to thrive Patient needs stair lift, wheel chair, rolling walker at home, usually drives by himself. Reportedly decreased oral intake recently leading to weakness. He didnt have any home health services. However he improved in terms of weakness and appetite after admission. He is able to walk around with the physical therapy. He was discharged home. Alcohol withdrawal Patient had a right leg tremor along both hand tremors at baseline. At admission he was anxious and agitated, His CIWA scores are also high secondary to falsely scored tremor along with symptoms. Once scored correctly CIWA scores are 0-2 -- a quick ativan taper provided. He was discharged with a single dose of ativan for next day. Thiamine/folic acid/ multivitamin. At home he usually admits taking vodka 3 shots every couple of weeks. Abdomen appears distended and this could be unreliable. ?? hypertension we obtained medication list from the [place], he was recently stopped on metoprolol. I continued his current medication list which didnt have any antihypertensive. He was on aspirin 81mg at home as stroke prophylaxis with Albuterol and Tiotropium inhalers. Multivitamins and eye drops for allergies. DVT prophylaxis * Subcutaneous Lovenox CODE STATUS * full code Complications: none Allergies: Coded Allergies: NO KNOWN ALLERGIES (04/07/15) Significant Procedures: none Pertinent Lab Results: as above. Disposition Summary Disposition Principal Diagnosis: Mild COPD exacerbation EtOH withdrawl Additional Diagnosis: Failure to thrive Discharge Disposition: home or self care Discharge Instructions General Discharge Information Code Status: Full Code Patient's Diet: regular diet Patient's Activity: Activity as tolerated Follow-Up Instructions/Appts: Please follow up with your PCP in a week Medications at Discharge Discharge Medications: Stop taking the following medications: Fluticasone Propionate (Flovent Hfa) 110 MCG/ACTUATION AER.W.ADAP Inhale through mouth TWICE DAILY Qty = 3 Continue taking these medications: Albuterol Sulfate (Proair Hfa) 90 MCG HFA.AER.AD 2 Puff Inhale through mouth EVERY 4-6 HOURS NEEDED as needed for COPD Comments: Last Taken: 03/28/16 Time: 9:00 AM Tiotropium [place] (Spiriva) 18 MCG CAP.W.DEV 1 Capsule Inhale through mouth DAILY Comments: LAST GIVEN 07/17/16 @ 1000 Albuterol Sulfate (Albuterol Sulfate) 2.5 MG/3 ML (0.083 %) VIAL.NEB 1 Vial Inhale Solution as needed for COPD Comments: NOT GIVEN IN HOSPITAL Budesonide/Formoterol Fumarate (Symbicort 80-4.5 Mcg Inhaler) 80 MCG-4.5 MCG/ ACTUATION HFA.AER.AD 2 Puff Inhale through mouth TWICE DAILY Aspirin (Aspirin*) 81 MG TAB.CHEW 1 Tablet ORAL DAILY Comments: LAST GIVEN 07/17/16 @ 1000 Mirtazapine (Mirtazapine) 7.5 MG TABLET 1 Tablet ORAL Every night Start taking the following new medications: Prednisone (Prednisone) 20 MG TABLET 1 Tablet ORAL GIVE ONCE Qty = 10 No Refills Instructions: On Take 07/18/16 40 MG -- take 2 tabs once a day 07/19/16 - 07/20/16 30 MG -- take 1.5 tab once a day 07/21/16 - 07/22/16 20 MG -- take 1 tab once a day 07/23/16 - 07/24/16 10 MG -- take 0.5 tab once a day then stop Comments: LAST GIVEN 07/17/16 @ 1000 Lorazepam (Ativan) 1 MG TABLET 1 Tablet ORAL DAILY Qty = 1 No Refills Comments: LAST GIVEN 07/17/16 @ 1330 Copies To: MARU AU,DIANA Attending MD Review Statement Documenting Attending: CORAL CHERRY M.D Other Findings: I have reviewed the discharge summary.
[2016-07-20] MEDS ORDERED: PREDNISONE20 M1 PO (12:51)
== END 2016-07-17 13:55 | DRG 191 ==
LOC: ERH 09:38 → 2NB 16:34 → ERHI 16:34 → ENRESERV 16:55 → ENTRNSPT 19:54 → 2NB 20:09 → CMPTRNSPT 20:20 → 2NB 07-15 19:45
PROVIDERS: Internal Medicine; Physician Assistant Medical; ADMIT Internal Medicine
DX: J44.1 Chronic obstructive pulmonary disease with (acute) exacerbation (principal); F10.239 Alcohol dependence with withdrawal, unspecified; Z99.81 Dependence on supplemental oxygen; I48.0 Paroxysmal atrial fibrillation; R62.7 Adult failure to thrive; I10 Essential (primary) hypertension; G47.33 Obstructive sleep apnea (adult) (pediatric); Z86.11 Personal history of tuberculosis; E55.9 Vitamin D deficiency, unspecified; Y90.0 Blood alcohol level of less than 20 mg/100 ml
CPT/HCPCS: 2NBSP; 36415; 81001; 81003; 82436; 93005; 93010; 96374; 97110-GO; 97116-GO; 97161-GP; 97530-GO; G0480; J0456; J1650; J2920; J2930; J3490; J7040